=== PATIENT | female | born 1975 | race Caucasian/White ===

== ENCOUNTER 2023-04-05 07:41 | Outpatient (OUT) | payer BC, SELFPAY ==
[2023-04-05 08:20] LABS: Basophils Percent Auto 0.4 % (0.2-2.0); Eosinophils Absolute Auto 0.1 10^3/uL (0.0-0.7); Eosinophils Percent Auto 2.3 % (0.9-7.0); Hematocrit 39.6 % (36.0-48.0); Hemoglobin 13.5 g/dL (12.0-16.0); Immature Granulocytes Abs Auto 0.01 10^3/uL (0.00-0.03); Immature Granulocytes Pct Auto 0.2 % (0.0-0.5); Lymphocytes Absolute Auto 1.7 10^3/uL (1.2-3.8); Lymphocytes Percent Auto 32.2 % (20.5-60.0); Mean Corpuscular HGB Conc 34.1 g/dL (29.9-35.2); Mean Corpuscular Hemoglobin 29.5 pg (26.7-34.0); Mean Corpuscular Volume 86.7 fL (81.0-99.0); Monocytes Absolute Auto 0.5 10^3/uL (0.3-0.8); Monocytes Percent Auto 8.9 % (1.7-12.0); Neutrophils Absolute Auto 2.9 10^3/uL (1.4-6.5); Platelet Count 228 10^3/uL (150-450); Red Blood Count 4.57 10^6/uL (4.20-5.40); Red Cell Distribution Width 13.3 % (11.0-15.0); White Blood Count 5.2 10^3/uL (4.0-11.0)
[2023-04-05 09:34] LABS: Alanine Aminotransferase 53 U/L (14-59); Albumin Globulin Ratio 1.1; Albumin Level 3.8 g/dL (3.4-5.0); Alkaline Phosphatase 112 U/L (46-116); Anion Gap 8.3; Aspartate Amino Transferase 28 U/L (15-37); BUN Creatinine Ratio 31.7; Bilirubin Direct 0.2 mg/dL (0.0-0.2); Bilirubin Total 1.3 mg/dL (0.2-1.0); Carbon Dioxide 30.9 mmol/L (21.0-32.0); Chloride 100 mmol/L (98-107); Chol HDL Ratio 3.6; Cholesterol 155 mg/dL (<=200); Estimated GFR (African America >60 (>=60); Estimated GFR (Non-African Ame >60 (>=60); Globulin 3.5 g/dL; Glucose 104 mg/dL (74-106); HDL Cholesterol 43 mg/dL (40-60); LDL Cholesterol Calculated 83.4 mg/dL; Potassium 3.2 mmol/L (3.5-5.1); Sodium 136 mmol/L (136-145); Total Protein 7.3 g/dL (6.4-8.2); Triglycerides 143 mg/dL (<=150); VLDL CHOLESTEROL 28.6 mg/dL
== END 2023-04-05 07:42 | disposition home or self-care (01) ==
LOC: LAB 07:44
PROVIDERS: PCP Family Medicine; Visit Provider Nurse Practitioner
DX: I10 Essential (primary) hypertension (principal); R60.0 Localized edema; E78.2 Mixed hyperlipidemia
CPT/HCPCS: 36415; 80048; 80061; 80076; 85025

== ENCOUNTER 2023-07-24 09:35 | Outpatient (OUT) | payer BC, SELFPAY ==
[2023-07-24 10:12] LABS: Basophils Percent Auto 0.6 % (0.2-2.0); Eosinophils Absolute Auto 0.1 10^3/uL (0.0-0.7); Eosinophils Percent Auto 1.7 % (0.9-7.0); Hematocrit 39.2 % (36.0-48.0); Hemoglobin 12.7 g/dL (12.0-16.0); Immature Granulocytes Abs Auto 0.01 10^3/uL (0.00-0.03); Immature Granulocytes Pct Auto 0.2 % (0.0-0.5); Lymphocytes Absolute Auto 1.8 10^3/uL (1.2-3.8); Lymphocytes Percent Auto 28.5 % (20.5-60.0); Mean Corpuscular HGB Conc 32.4 g/dL (29.9-35.2); Mean Corpuscular Hemoglobin 29.6 pg (26.7-34.0); Mean Corpuscular Volume 91.4 fL (81.0-99.0); Mean Platelet Volume 9.5 fL (9.5-13.5); Monocytes Absolute Auto 0.5 10^3/uL (0.3-0.8); Monocytes Percent Auto 7.4 % (1.7-12.0); Neutrophils Absolute Auto 3.9 10^3/uL (1.4-6.5); Neutrophils Percent Auto 61.6 % (43.0-75.0); Platelet Count 269 10^3/uL (150-450); Red Blood Count 4.29 10^6/uL (4.20-5.40); Red Cell Distribution Width 14.1 % (11.0-15.0); White Blood Count 6.3 10^3/uL (4.0-11.0)
[2023-07-24 10:29] LABS: Estimated Average Glucose 123 mg/dL; Glycohemoglobin A1C 5.9 % (4.5-6.2)
[2023-07-24 11:05] LABS: Alanine Aminotransferase 68 U/L (14-59); Albumin Globulin Ratio 0.9; Albumin Level 3.4 g/dL (3.4-5.0); Alkaline Phosphatase 102 U/L (46-116); Anion Gap 11.1; Aspartate Amino Transferase 32 U/L (15-37); BUN Creatinine Ratio 32.5; Bilirubin Total 1.2 mg/dL (0.2-1.0); Calcium 9.2 mg/dL (8.5-10.1); Carbon Dioxide 29.8 mmol/L (21.0-32.0); Chloride 104 mmol/L (98-107); Chol HDL Ratio 3.5; Cholesterol 162 mg/dL (<=200); Estimated GFR (African America >60 (>=60); Estimated GFR (Non-African Ame >60 (>=60); Free T3 2.26 pg/mL (2.18-3.98); Globulin 3.6 g/dL; Glucose 101 mg/dL (74-106); HDL Cholesterol 46 mg/dL (40-60); Potassium 3.9 mmol/L (3.5-5.1); Sodium 141 mmol/L (136-145); Thyroid Stimulating Hormone 2.383 uIU/mL (0.358-3.740); Triglycerides 169 mg/dL (<=150); VLDL CHOLESTEROL 33.8 mg/dL
[2023-07-25 12:07] LABS: Insulin 21.5 uIU/mL (2.6-24.9)
== END 2023-07-24 09:36 | disposition home or self-care (01) ==
PROVIDERS: PCP Family Medicine; Visit Provider Family Medicine
DX: Z00.00 Encounter for general adult medical examination without abnormal findings (principal); E78.5 Hyperlipidemia, unspecified; R73.09 Other abnormal glucose; Z12.12 Encounter for screening for malignant neoplasm of rectum; D64.9 Anemia, unspecified; E55.9 Vitamin D deficiency, unspecified
CPT/HCPCS: 36415; 80053; 80061; 82306; 83036; 83525; 83540; 84436; 84443; 84481; 85025

== ENCOUNTER 2023-08-06 08:23 | Outpatient (OUT) | payer BC, SELFPAY ==
--- OUTSIDE RECORDS SUMMARY | 2023-08-06 08:26 | XMS_ITS | CCD ---
Author Name Unknown Address [address] [place] [address] Organization [facility] Care Team Providers Care Electrical Technician Name Role Phone SHIRLENEY ., DR LEE Admitting Unavailable HOY ., DR LEE Attending Unavailable HOY ., DR LEE Consulting Unavailable HOY ., DR LEE Primary Care Unavailable HOY ., DR LEE Primary Care Unavailable HOY ., DR LEE Admitting Unavailable HOY ., DR LEE Attending Unavailable HOY ., DR LEE Primary Care Unavailable HOY ., DR LEE Admitting Unavailable HOY ., DR LEE Attending Unavailable HOY ., DR LEE Consulting Unavailable HOY ., DR LEE Admitting Unavailable HOY ., DR LEE Attending Unavailable HOY ., DR LEE Consulting Unavailable HOY ., DR LEE Primary Care Unavailable NADERER, DR YISEL Fortune Consulting Unavailable GLO MCCOY Consulting Unavailable YAYA ., ZULMA Consulting Unavailable NAZZAL, MUNIER Referring Unavailable NAZZAL, MUNIER Attending Unavailable ALGHOTHANI, MOHAMAD Attending Unavailable ALGHOTHANI, MOHAMAD Attending Unavailable SHARON, KYLE Attending Unavailable SHARON, KYLE Attending Unavailable NAZZAL, MUNIER Attending Unavailable NAZZAL, MUNIER Referring Unavailable Allergies Allergy Classification Reported Allergen(s) Allergy Type Date of Onset Reaction(s) Facility (1 source) Allopurinol Drug Allergy 06-08-20 15 [facility] Repository (1 source) Sulfamethoxazole / Trimethoprim Drug Allergy 06-08-20 15 [facility] Repository (1 source) Sulfamethoxazole / Trimethoprim; Translations: [SULFAMETHOXAZOLE-TR IMETHOPRIM] Drug Allergy 07-29-19 [facility] Repository (1 source) TETANUS AND DIPHTHER. TOX (PF); Translations: [TETANUS AND DIPHTHER. TOX (PF)] Propensity to adverse reactions to drug (disorder) 07-29-19 [facility] Repository Problems Active Problems Problem Classification Problem Date Documented Da te Episodic/Chronic Disorders of lipid metabolism (2 sources) Mixed hyperlipidemia; Translations: [Mixed hyperlipidemia] Onset: 03-19-2023 Chronic Essential hypertension (3 sources) Essential (primary) hypertension; Translations: [ESSENTIAL PRIMARY HYPERTENSION] Onset: 06-26-2022 Chronic Other connective tissue disease (2 sources) Other specified soft tissue disorders; Translations: [Other specified soft tissue disorders] Onset: 05-04-2023 Episodic Unclassified (4 sources) CONTACT W/AND (SUSP) EXPOS COVID-19; Translations: [CONTACT W/AND (SUSP) EXPOS COVID-19] Onset: 06-26-2022 Unclassified (1 source) COUGH, UNSPECIFIED; Translations: [COUGH, UNSPECIFIED] Onset: 07-06-2022 Unclassified (2 sources) abnormal stress test Onset: 07-29-2022 Past or Other Problems Problem Classification Problem Date Documented Date Episodic/Chronic Cardiac dysrhythmias (2 sources) Palpitations; Translations: [Palpitations] Onset: 10-21-2022 Episodic Nonspecific chest pain (6 sources) Chest pain, unspecified; Translations: [Other chest pain] Onset: 07-13-2022 Episodic Other aftercare (1 source) correction (current) use of aspirin; Translations: [SALES PROMOTER CURRENT USE OF ASPIRIN] Onset: 06-26-2022 Episodic Other diseases of veins and lymphatics (2 sources) Venous insufficiency (chronic) (peripheral); Translations: [Venous insufficiency (chronic) (peripheral)] Onset: 03-19-2023 Episodic Other liver diseases (1 source) Abnormal levels of other serum enzymes; Translations: [ABNORMAL LEVELS OTHER SERUM ENZYMES] Onset: 06-26-2022 Episodic Other lower respiratory disease (1 source) Shortness of breath; Translations: [SHORTNESS OF BREATH] Onset: 06-26-2022 Episodic Other upper respiratory disease (1 source) Nasal congestion; Translations: [NASAL CONGESTION] Onset: 07-06-2022 Episodic Residual codes; unclassified (2 sources) Localized edema; Translations: [Localized edema] Onset: 03-19-2023 Episodic Unclassified (1 source) CONTACT W/AND (SUSP) EXPOS COVID-19; Translations: [CONTACT W/AND (SUSP) EXPOS COVID-19] Onset: 07-02-2022 Results Test Name Value Interpretation Reference Range Facility 29on 07-21-2023 29 Addended by: KYLE HERRERA on: 07/21/2023 10:25 AM Modules accepted: Orders Normal [facility] Office Visiton 07-21-2023 Follow-up visit [id number] Brooke Dior 1975 F Date Provider Department Center 07/21/2023 120-KYLE HERRERA [facility] Family History Problem Relation Age of Onset Heart failure Mother Coronary artery disease Mother Other Mother Other Mother Valvular heart disease Mother Coronary artery disease Mother's Sister Coronary artery disease Mother's Brother Coronary artery disease Maternal Grandfather Family Status - Relation Status Age at Mother Mother's Sister Mother's Brother Maternal Grandfather Level of Service:93763 [place] OFFICE/OUTPATIENT ESTABLISHED LOW MDM 20 MIN [facility] Clinical Supporton Clinical Support [id number] Brooke Dior 1975 Date Provider Department Center 05/04/2023 34[facility] Problem Relation Age of Onset Heart failure Mother Coronary artery disease Mother Other Mother Other Mother Valvular heart disease Mother Coronary artery disease Mother's Sister Coronary artery disease Mother's Brother Coronary artery disease Maternal Grandfather Family Status - Relation Status Age at Mother Mother's Sister Mother's Brother Maternal Grandfather [facility] Follow-Upon 05-04-2023 Follow-Up [id number] Brooke Dior 1975 Date Provider Department Center 05/04/2023 Michel-DMITRI WESTBROOK GLV [facility] Family History Problem Relation Age of Onset Heart failure Mother Coronary artery disease Mother Other Mother Other Mother Valvular heart disease Mother Coronary artery disease Mother's Sister Coronary artery disease Mother's Brother Coronary artery disease Maternal Grandfather Family Status - Relation Status Age at Mother Mother's Sister Mother's Brother Maternal Grandfather Level of Service:41982 [place] OFFICE/OUTPATIENT ESTABLISHED LOW MDM 20-29 MIN Reason for Visit and Comments: Follow-up [[id number]] [facility] 36on 04-07-2023 36 Please see bps [facility] 36 142/81, 145/85, 142/79, 139/83, 141/86, 131/85, 141/93, 140/79, 141/85, 139/96, 128/87 [facility] Orders Onlyon 04-07-2023 Orders Only [id number] Brooke Dior 1975 Provider Department Center 04/07/2023 KYLE BUSTILLOS MARLON [facility] Family History Problem Relation Age of Onset Heart failure Mother Coronary artery disease Mother Other Mother Other Mother Valvular heart disease Mother Coronary artery disease Mother's Sister Coronary artery disease Mother's Brother Coronary artery disease Maternal Grandfather Family Status - Relation Status Age at Mother Mother's Sister Mother's Brother Maternal Grandfather Normal [facility] 36on 04-05-2023 36 Lm 04/05 [facility] Office Visiton 03-23-2023 Follow-up visit [id number] Brooke Dior 1975 Provider Department Center 03/23/2023 DMITRI ENCARNACION [facility] Family History Problem Relation Age of Onset Heart failure Mother Coronary artery disease Mother Other Mother Other Mother Valvular heart disease Mother Coronary artery disease Mother's Sister Coronary artery disease Mother's Brother Coronary artery disease Maternal Grandfather Family Status - Relation Status Age at Mother Mother's Sister Mother's Brother Maternal Grandfather Level of Service:39924 [place] OFFICE/OUTPATIENT NEW LOW MDM 30-44 MINUTES Normal [facility] Office Visiton 03-19-2023 Follow-up visit [id number] Brooke Dior 1975 Provider Department Center 03/19/2023 KYLE BUSTILLOS MARLON [facility] Family History Problem Relation Age of Onset Heart failure Mother Coronary artery disease Mother Other Mother Other Mother Valvular heart disease Mother Coronary artery disease Mother's Sister Coronary artery disease Mother's Brother Coronary artery disease Maternal Grandfather Family Status - Relation Status Age at Mother Mother's Sister Mother's Brother Maternal Grandfather Level of Service:40772 [place] OFFICE/OUTPATIENT ESTABLISHED MOD MDM 30-39 MIN Normal [facility] Office Visiton 10-21-2022 Follow-up visit [id number] Brooke Dior 1975 Date Provider Department Center 10/21/2022 384ViancaRACHELLE GARAY Family History Problem Relation Age of Onset Heart failure Mother Coronary artery disease Mother Other Mother Other Mother Valvular heart disease Mother Coronary artery disease Mother's Sister Coronary artery disease Mother's Brother Coronary artery disease Maternal Grandfather Family Status - Relation Status Age at Mother Mother's Sister Mother's Brother Maternal Grandfather Level of Service:26559 [place] OFFICE/OUTPATIENT ESTABLISHED LOW MDM 20-29 MIN Reason for Visit and Comments: Follow-up [[id number]] - Go over test results Normal [facility] Office Visiton 07-29-2022 Follow-up visit [id number] Brooke Dior 1975 Date Provider Department Center 07/29/2022 3848-RACHELLE GARAY Family History Problem Relation Age of Onset Heart failure Mother Coronary artery disease Mother Other Mother Other Mother Valvular heart disease Mother Coronary artery disease Mother's Sister Coronary artery disease Mother's Brother Coronary artery disease Maternal Grandfather Family Status - Relation Status Age at Mother Mother's Sister Mother's Brother Maternal Grandfather Level of Service:75329 [place] OFFICE/OUTPATIENT NEW MODERATE MDM 45-59 MINUTES Reason for Visit and Comments: abnormal stress test [Other] Normal [facility] NM STRESS/REST MULTIon 07-09 NM STRESS/REST MULTI Patient: DIORBROOKE GARDUNO. Exam Date: 07/09/2022 : 1975 Gender:F Ordering : DR JESUS SMITH . Admission #: [id number] Family : Order #: [id number] CLICK HERE TO VIEW EXAM RADIOLOGY REPORT PROCEDURE: RADIONUCLIDE IMAGING STRESS/REST MULTI COMPARISON: None. INDICATIONS: Chest pain TECHNIQUE: Exam Description: Stress/Rest two day protocol gated SPECT Rest Imagin.8 mCi Tc-99m Cardiolite IV on 07/09/2022 Stress Imaging 25.6 mCi Tc-99m Cardiolite IV on 07/13/2022 Exercise Protocol: Shiv Heart Rate (bpm): Rest: 65 Max: 148 PMHR: 85 Blood Pressure: Rest: 128/92 Max: 194/98 Exercise Time: Minutes: 4 Seconds: 30 Stage Reached: Stage: 2 Mets 6.9 Symptoms: Rest and peak stress ECG findings were abnormal and the exercise portion of the study was abnormal per attending physician Dr. Jeong due toEKG changes, inferior lead downsloping and T-wave inversions in V5-6. For more details please see separate cardiac stress test report. FINDINGS: QUALITY OF STUDY: Excellent. PERFUSION DEFECT: None. LOCATION: N/A SIZE: N/A. SEVERITY: N/A. TYPE: N/A. WALL MOTION: Normal. LV SIZE: Normal. 83 mL. TID / TCD: None; 0.8 LVEF: Normal. Calculated EF 70%. SUMMARY: Myocardial perfusion imaging study is NORMAL. CONCLUSION: 1. Normal nuclear medicine myocardial perfusion scan. Dictated by: Sam Huang M.D. on 07/13/2022 at 15:41 Approved by: Sam Huang M.D. on 07/13/2022 at 15:43 Normal [facility] Covid-19 PCR (CVDTB)on SARS-CoV-2 (COVID-19) RNA BETZY+probe Ql (Unsp spec) Not detected Normal NOT DETECTED [facility] Comment on above: Result Comment: This test is not yet approved or cleared by the [place] FDA. When there are no FDA-approved or cleared tests available, and other criteria are met, FDA can make tests available under an emergency access mechanism called an Emergency Use Authorization (EUA). The EUA for this test is supported by the [place] of Health and Human Service's (HHS's) declaration that circumstances exist to justify the emergency use of in vitro diagnostics for the detection and/or diagnosis of the virus that causes COVID-19. This EUA will remain in effect (meaning this test can be used) for the duration of the COVID-19 declaration justifying emergency of IVDs, unless it is terminated or revoked by FDA (after which the test may no longer be used). When diagnostic testing is negative, the possibility of a false negative should be considered in the context of a patient's recent exposures and the presence of clinical signs and symptoms consistent with SARS-CoV-2. Performed By: #### C [facility] #### [facility] [address] [place] [address] Dr. Terrance Hernandez [facility] Normal [facility] Comment on above: Result Comment: Nega tive for Flu B protein antigen. Infection due to Flu B cannot be ruled out. Flu B antigen in the sample may be below the detection limit of the test. Performed By: #### B GRANITE SANDBLASTER APPRENTICE, CMP, HSTROPN #### [facility] [address] [place] [address] Dr. Terrance Hernandez INFLUENZA A AG Positive Abnormal NEGATIVE SEE COMMENT [facility] Comment on above: Performed By: #### B GRANITE SANDBLASTER APPRENTICE, CMP, HSTROPN #### [facility] [address] [place] [address] Dr. Terrance Hernandez INFLUENZA B AG Negative Normal NEGATIVE SEE COMMENT [facility] Comment on above: Performed By: #### B GRANITE SANDBLASTER APPRENTICE, CMP, HSTROPN #### [facility] [address] [place] [address] Dr. Terrance Hernandez INFLUPOS SEE BELOW Normal [facility] Comment on above: Result Comment: NOTE : Live attenuated influenzae vaccine viruses can cause a positive result for a rapid influenza diagnostic test if administered up to 7 days prior to rapid testing. Performed By: #### B GRANITE SANDBLASTER APPRENTICE, CMP, HSTROPN #### [facility] [address] [place] [address] Dr. Terrance Hernandez INTERNAL CONTROLS Within Normal Limits Normal Wi thin Normal Limits [facility] Comment on above: Performed By: #### B GRANITE SANDBLASTER APPRENTICE, CMP, HSTROPN #### [facility] [address] [place] [address] Dr. Terrance Hernandez CBC AUTO DIFFon 06-19-2022 BASO # 0.1 103/ul Normal 0.0-0.[address] [facility] Comment on above: Performed By: #### C BC #### [facility] [address] [place] [address] Dr. Terrance Hernandez Basophils/100 WBC (Bld) 0.8 % Normal 0.2-2.[address] [facility] Comment on above: Performed By: #### C BC #### [facility] [address] [place] [address] Dr. Terrance Hernandez EO # 0.1 103/ul Normal 0.0-0.7 [facility] Comment on above: Performed By: #### C BC #### [facility] [address] [place] [address] Dr. Terrance Hernandez Eosinophils/100 WBC (Bld) 1.4 % Normal 0.9-7.[address] [facility] Comment on above: Performed By: #### C BC #### [facility] [address] [place] [address] Dr. Terrance Hernandez Erythrocyte distribution width (RBC) [Ratio] 13.2 % Normal 11.0-15.[address] [facility] Comment on above: Performed By: #### C BC #### [facility] [address] [place] [address] Dr. Terrance Hernandez Hematocrit (Bld) [Volume fraction] 41.2 % Normal 36.0-48.[address] [facility] Comment on above: Performed By: #### C BC #### [facility] [address] [place] [address] Dr. Terrance Hernandez Hemoglobin (Bld) [Mass/Vol] 13.7 g/dL Normal 12.0-16.[address] [facility] Comment on above: Performed By: #### C BC #### [facility] [address] [place] [address] Dr. Terrance Hernandez IG # 0.01 10e3/ul Normal 0.00-0.[address] [facility] Comment on above: Performed By: #### C BC #### [facility] [address] [place] [address] Dr. Terrance Hernandez IG % 0.2 % Normal 0.0-0.5 [facility] Comment on above: Performed By: #### C BC #### [facility] [address] [place] [address] Dr. Terrance Hernandez LYMPH # 2.0 103/ul Normal 1.2-3.8 [facility] Comment on above: Performed By: #### C BC #### [facility] [address] [place] [address] Dr. Terrance Hernandez Lymphocytes/100 WBC (Bld) 29.4 % Normal 20.5-60.[address] [facility] Comment on above: Performed By: #### C BC #### [facility] [address] [place] [address] Dr. Terrance Hernandez MANUAL DIFF REQ NO Normal [facility] Comment on above: Performed By: #### C BC #### [facility] [address] [place] [address] Dr. Terrance Hernandez MCH (RBC) [Entitic mass] 29.2 pg Normal 26.7-34.[address] [facility] Comment on above: Performed By: #### C BC #### [facility] [address] [place] [address] Dr. Terrance Hernandez MCHC (RBC) [Mass/Vol] 33.3 g/dL Normal 29.9-35.[address] [facility] Comment on above: Performed By: #### C BC #### [facility] [address] [place] [address] Dr. Terrnace Hernandez MCV (RBC) [Entitic vol] 87.8 fL Normal 81.0-99.[address] [facility] Comment on above: Performed By: #### C BC #### [facility] [address] [place] [address] Dr. Terrance Hernandez MONO # 0.5 103/ul Normal 0.3-0.[address] [facility] Comment on above: Performed By: #### C BC #### [facility] [address] [place] [address] Dr. Terrance Hernandez Monocytes/100 WBC (Bld) 8.0 % Normal 1.7-12.[address] [facility] Comment on above: Performed By: #### C BC #### [facility] [address] [place] [address] Dr. Terrance Hernandez NEUT # 4.0 103/ul Normal 1.4-6.[address] [facility] Comment on above: Performed By: #### C BC #### [facility] [address] [place] [address] Dr. Terrance Hernandez Neutrophils/100 WBC (Bld) 60.2 % Normal 43.0-75.[address] [facility] Comment on above: Performed By: #### C BC #### [facility] [address] [address] [address] Terrance Hernandez Platelet mean volume (Bld) [Entitic vol] 9.3 fL Critically low 9.5-13.[address] [facility] Comment on above: Performed By: #### C BC #### [facility] [address] [address] [address] Terrance Hernandez PLT 250 103/ul Normal 150-[address] [facility] Comment on above: Performed By: #### C BC #### [facility] [address] [address] [address] Terrance Hernandez RBC 4.69 106/ul Normal 4.20-5.[address] [facility] Comment on above: Performed By: #### C BC #### [facility] [address] [place] [address] Dr. Terrance Hernandez WBC 6.6 103/ul Normal 4.0-11.[address] [facility] Comment on above: Performed By: #### C BC #### [facility] [address] [place] [address] Dr. Terrance Hernandez ECHOCARDIO M/2D COMPLETEon 1 08-19-2021 ECHOCARDIO M/2D COMPLETE Patient: BROOKE DIOR Exam Date: 06/19/2022 : 1975 Gender:F Ordering : DR YISEL OLMEDO . Admission #: [id number] Family : DR JESUS SMITH . Order #: [id number] CLICK HERE TO VIEW EXAM ECHOCARDIOGRAM REPORT PROCEDURE: CARDIO PULMONARY ECHOCARDIO M/2D COMP INDICATIONS: Hypertension, Chest pain, Elevated Troponin COMPARISON: None. DESCRIPTION: COMPLETE ECHOCARDIOGRAM Real-time transthoracic echocardiography with 2D, M-mode, spectral and color flow Doppler performed. QUALITY: Technical quality was adequate. LEFT VENTRICLE: Normal chamber size. Moderate concentric left ventricular hypertrophy. LV EF: Global left ventricular systolic function is normal. Calculated left ventricular ejection fraction is 60% DIASTOLIC: Diastolic function is indeterminate. ATRIAL SEPTUM: Aneurysmal atrial septum. LEFT ATRIUM: Normal chamber size. RIGHT ATRIUM: Mild dilatation. RIGHT VENTRICLE: Normal chamber size. Normal right ventricular systolic function. TRICUSPID VALVE: Normal mobility and thickness. No stenosis with trivial regurgitation. No evidence of pulmonary hypertension. RVSP 11mmHg MITRAL VALVE: Normal mobility and thickness. No mitral valve prolapse. No evidence of mitral valve stenosis. There is no mitral annular calcification. No mitral regurgitation. AORTIC VALVE: Normal trileaflet appearance. No visible sclerosis. Normal leaflet mobility. No evidence of aortic valve stenosis. DVI 0.54. No aortic regurgitation. AORTIC ROOT: Normal diameter and appearance. PULMONIC VALVE: Normal thickness and mobility. No stenosis. No regurgitation. PERICARDIUM: Anterior free space; trivial effusion versus fat pad. IVC: Collapses with inspirations. Normal size. CONCLUSION: Global left ventricular systolic function is normal; visually estimated ejection fraction is 55 to 60%. No wall motion abnormalities. Moderate left ventricular hypertrophy. Diastolic function is indeterminate. The right atrium is mildly dilated. The right ventricle is normal in size and systolic function. No significant valvular abnormalities. Anterior free space; trivial effusion versus fat pad. Adult Echocardiography Procedure Report Left Ventricle LVEDD (3.7 - 5.6 cm): 4.33 cm LVESD (2.2 - 4.0 cm): 2.99 cm LVIVS thickness (0.6 - 1.2 cm): 1.29 cm LVPW thickness (0.5 - 1.0 cm): 1.08 cm e': 0.13 m/s E - e': 3.63 LVOT Max Gradient: 2.42 mm[Hg], 2.14 mm[Hg] Peak Velocity (LVOT): 0.78 m/s, 0.73 m/s Mean Velocity (LVOT): 0.49 m/s, 0.46 m/s LVOT Diameter 1.89 cm Left Ventricular Ejection Fraction: 58.82 %, 58.82 % Left Atrium LA Volume Index (2D A2C): 37.52 ml, 37.52 ml Left Atrium Systolic Dimension: 3.69 cm Mitral Valve MV E to A Ratio: 0.76 Mitral Valve A-Wave Peak Velocity: 0.62 m/s Mitral Valve E-Wave Peak Velocity: 0.48 m/s Right Ventricle RV Internal Diastolic Dimension: 3.49 cm Aorta AO Root Diam: 2.36 cm Ascending Ao Diam: 2.48 cm Aortic Valve AoV Area (Peak Tyrel): 1.54 cm2, 1.59 cm2 AoV Area (VTI): 2.02 cm2, 2.08 cm2 Peak Velocity(Antegrade Flow): 1.37 m/s Peak Gradient(Antegrade Flow): 7.54 mm[Hg] Mean Velocity(Antegrade Flow): 0.89 m/s Mean Gradient(Antegrade Flow): 3.73 mm[Hg] Velocity Time Integral: 24.95 cm Tricuspid Valve Peak Velocity (Regurgitant Flow): 1.50 m/s, 1.37 m/s, 1.41 m/s Peak Velocity: 0.56 m/s Pulmonic Valve Peak Velocity: 1.19 m/s, 1.45 m/s Peak Gradient: 5.66 mm[Hg], 8.38 mm[Hg] Right Atrium Right Atrium Systolic Pressure: 30.59 ml, 30.59 ml Dictated by: Soco Bell M.D. on 06/24/2022 at 12:54 Approved by: Soco Bell M.D. on 06/24/2022 at 13:[address] [facility] PROF CHEM 8 (BAS METB)on Anion gap [Moles/Vol] 9.9 mmol/L Normal [facility] Comment on above: Performed By: #### B GRANITE SANDBLASTER APPRENTICE, CMP, HSTROPN #### [facility] [address] [place] [address] Dr. Terrance Hernandez Calcium [Mass/Vol] 8.8 mg/dL Normal 8.5-10.1 [facility] Comment on above: Performed By: #### B GRANITE SANDBLASTER APPRENTICE, CMP, HSTROPN #### [facility] [address] [place] [address] Dr. Terrance Hernandez Chloride [Moles/Vol] 105 mmol/L Normal 98-[address] [facility] Comment on above: Performed By: #### B GRANITE SANDBLASTER APPRENTICE, CMP, HSTROPN #### [facility] [address] [place] [address] Dr. Terrance Hernandez CO2 [Moles/Vol] 28.6 mmol/L Normal 21.0-32.0 [facility] Comment on above: Performed By: #### B GRANITE SANDBLASTER APPRENTICE, CMP, HSTROPN #### [facility] [address] [place] [address] Dr. Terrance Hernandez Creatinine [Mass/Vol] 0.59 mg/dL Normal 0.55-1.[address] [facility] Comment on above: Performed By: #### B GRANITE SANDBLASTER APPRENTICE, CMP, HSTROPN #### [facility] [address] [place] [address] [address] Terrance Hernandez EGFR-AF ERITREAN >60 Normal >=60 [facility] Comment on above: Performed By: #### B GRANITE SANDBLASTER APPRENTICE, CMP, HSTROPN #### [facility] [address] [place] [address] [address] Terrance Hernandez EGFR-NON AF ERITREAN >60 Normal >=[address] [facility] Comment on above: Performed By: #### B GRANITE SANDBLASTER APPRENTICE, CMP, HSTROPN #### [facility] [address] [place] [address] [address] Terrance Hernandez Glucose [Mass/Vol] 99 mg/dL Normal 74-106 [facility] Comment on above: Performed By: #### B GRANITE SANDBLASTER APPRENTICE, CMP, HSTROPN #### [facility] [address] [place] [address] [address] Terrance Hernandez Potassium [Moles/Vol] 3.5 mmol/L Normal 3.5-5.[address] [facility] Comment on above: Performed By: #### B GRANITE SANDBLASTER APPRENTICE, CMP, HSTROPN #### [facility] [address] [place] [address] [address] Terrance Hernandez Sodium [Moles/Vol] 140 mmol/L Normal 136-145 [facility] Comment on above: Performed By: #### B GRANITE SANDBLASTER APPRENTICE, CMP, HSTROPN #### [facility] [address] [place] [address] [address] Terrance Hernandez Urea nitrogen [Mass/Vol] 13.0 mg/dL Normal 7.0-18.[address] [facility] Comment on above: Performed By: #### B GRANITE SANDBLASTER APPRENTICE, CMP, HSTROPN #### [facility] [address] [place] [address] [address] Terrance Hernandez Urea nitrogen/Creatinine [Mass ratio] 22.0 mg/mg Normal [facility] Comment on above: Performed By: #### B GRANITE SANDBLASTER APPRENTICE, CMP, HSTROPN #### [facility] [address] [place] [address] Dr. Terrance Hernandez TROPONIN, HIGH SENSITIVITYon 06-19-2022 HSTROP 104.8 pg/mL Critically high 4.0-51.3 [facility] Comment on above: Result Comment: CUT- OFF POINTS HAVE BEEN ESTABLISHED BASED ON THE FOURTH UNIVERSAL DEFINITIONS OF MYOCARDIAL INFARCTION. THE UPPER REFERENCE LIMIT (URL) OF TROPONIN, DEFINED THE 99TH PERCENTILE OF cTnI DISTRIBUTION IN A REFERENCE POPULATION, HAS BEEN CONFIRMED THE DECISION THRESHOLD FOR [place] DIAGNOSIS. Performed By: #### B GRANITE SANDBLASTER APPRENTICE, CMP, HSTROPN #### [facility] [address] [place] [address] Dr. Terrance Hernandez BNPon 06-18-2022 Natriuretic peptide B (Bld) [Mass/Vol] 59.0 pg/mL Normal <=450.[address] [facility] Comment on above: Performed By: #### B GRANITE SANDBLASTER APPRENTICE, CMP, HSTROPN #### [facility] [address] [place] [address] Dr. Terrance Hernandez CBC AUTO DIFFon 06-18-2022 BASO # 0.0 103/ul Normal 0.0-0.[address] [facility] Comment on above: Performed By: #### C BC #### [facility] [address] [place] [address] Dr. Terrance Hernandez Basophils/100 WBC (Bld) 0.5 % Normal 0.2-2.0 [facility] Comment on above: Performed By: #### C BC #### [facility] [address] [place] [address] Dr. Terrance Hernandez EO # 0.1 103/ul Normal 0.0-0.7 [facility] Comment on above: Performed By: #### C BC #### [facility] [address] [place] [address] Dr. Terrance Hernandez Eosinophils/100 WBC (Bld) 1.3 % Normal 0.9-7.0 [facility] Comment on above: Performed By: #### C BC #### [facility] [address] [place] [address] Dr. Terrance Hernandez Erythrocyte distribution width (RBC) [Ratio] 13.2 % Normal 11.0-15.[address] [facility] Comment on above: Performed By: #### C BC #### [facility] [address] [place] [address] Dr. Terrance Hernandez Hematocrit (Bld) [Volume fraction] 40.7 % Normal 36.0-48.[address] [facility] Comment on above: Performed By: #### C BC #### [facility] [address] [place] [address] Dr. Terrance Hernandez Hemoglobin (Bld) [Mass/Vol] 13.6 g/dL Normal 12.0-16.[address] [facility] Comment on above: Performed By: #### C BC #### [facility] [address] [place] [address] Dr. Terrance Hernandez IG # 0.01 10e3/ul Normal 0.00-0.[address] [facility] Comment on above: Performed By: #### C BC #### [facility] [address] [place] [address] Dr. Terrance Hernandez IG % 0.2 % Normal 0.0-0.[address] [facility] Comment on above: Performed By: #### C BC #### [facility] [address] [place] [address] Dr. Terrance Hernandez LYMPH # 1.7 103/ul Normal 1.2-3.8 [facility] Comment on above: Performed By: #### C BC #### [facility] [address] [place] [address] Dr. Terrance Hernandez Lymphocytes/100 WBC (Bld) 25.8 % Normal 20.5-60.[address] [facility] Comment on above: Performed By: #### C BC #### [facility] [address] [place] [address] Dr. Terrance Hernandez MANUAL DIFF REQ NO Normal [facility] Comment on above: Performed By: #### C BC #### [facility] [address] [place] [address] Dr. Terrance Hernandez MCH (RBC) [Entitic mass] 29.2 pg Normal 26.7-34.0 [facility] Comment on above: Performed By: #### C BC #### [facility] [address] [place] [address] [address] Terrance Hernandez MCHC (RBC) [Mass/Vol] 33.4 g/dL Normal 29.9-35.2 [facility] Comment on above: Performed By: #### C BC #### [facility] [address] [place] [address] [address] Terrance Hernandez MCV (RBC) [Entitic vol] 87.5 fL Normal 81.0-99.0 [facility] Comment on above: Performed By: #### C BC #### [facility] [address] [place] [address] Dr. Terrance Hernandez MONO # 0.6 103/ul Normal 0.3-0.8 [facility] Comment on above: Performed By: #### C BC #### [facility] [address] [place] [address] Dr. Terrance Hernandez Monocytes/100 WBC (Bld) 8.8 % Normal 1.7-12.0 [facility] Comment on above: Performed By: #### C BC #### [facility] [address] [place] [address] Dr. Terrance Hernandez NEUT # 4.1 103/ul Normal 1.4-6.5 [facility] Comment on above: Performed By: #### C BC #### [facility] [address] [place] [address] [address] Terrance Hernandez Neutrophils/100 WBC (Bld) 63.4 % Normal 43.0-75.0 [facility] Comment on above: Performed By: #### C BC #### [facility] [address] [place] [address] [address] Terrance Hernandez Platelet mean volume (Bld) [Entitic vol] 9.3 fL Critically low 9.5-13.5 [facility] Comment on above: Performed By: #### C BC #### [facility] [address] [place] [address] [address] Terrance Hernandez PLT 255 103/ul Normal 150-450 [facility] Comment on above: Performed By: #### C BC #### [facility] [address] [place] [address] Dr. Terrance Hernandez RBC 4.65 106/ul Normal 4.20-5.[address] [facility] Comment on above: Performed By: #### C BC #### [facility] [address] [place] [address] Dr. Terrance Hernandez WBC 6.4 103/ul Normal 4.0-11.[address] [facility] Comment on above: Performed By: #### C BC #### [facility] [address] [place] [address] Dr. Terrance Hernandez [facility] SARS-CoV-2 (COVID-19) RNA BETZY+probe Ql (Unsp spec) Not detected Normal NOT DETECTED [facility] Comment on above: Result Comment: When diagnostic testing is negative, the possibility of a false negative should be considered in the context of a patient's recent exposures and the presence of clinical signs and symptoms consistent with SARS-CoV-2. This test is not yet approved or cleared by the [place] FDA. When there are no FDA-approved or cleared tests available, and other criteria are met, FDA can make tests available under an emergency access mechanism called an Emergency Use Authorization (EUA). The EUA for this test is supported by the [place] of Health and Human Service's declaration that circumstances exist to justify the emergency use of in vitro diagnostics for the detection and/or diagnosis of the virus that causes COVID-19. This EUA will remain in effect for the duration of the COVID-19 declaration justifying emergency of IVDs, unless it is terminated or revoked by the FDA (after which the test may no longer be used). Performed By: #### B GRANITE SANDBLASTER APPRENTICE, CMP, HSTROPN #### [facility] [address] [place] [address] Dr. Terrance Hernandez D-DIMERon 06-18-2022 D-DIMER 0.48 mg/L FEU Normal <=0.59 [facility] Comment on above: Performed By: #### B GRANITE SANDBLASTER APPRENTICE, CMP, HSTROPN #### [facility] [address] [place] [address] [address] Terrance Hernandez D-DIMER COMMENTS SEE BELOW Normal [facility] Comment on above: Result Comment: Incr eases in D-Dimer concentration observed with thromboembolic events can be variable due to localization, size, and age of the thrombus. Therefore, a thromboembolic event cannot be diagnosed with certainty on the basis of the reference range. D-Dimers may also be elevated for a variety of disorders including: advanced age, , coronary disease, cancer, liver disease, infection, inflammation, hematoma, DIC, trauma, post-surgery, diabetes, thrombolytic or anticoagulant therapy, stress, and generalized hospitalization. Performed By: #### B GRANITE SANDBLASTER APPRENTICE, CMP, HSTROPN #### [facility] [address] [place] [address] Dr. Terrance Hernandez DRUG SCREEN RAPID (URINE)on 06-18-2022 AMP Negative Normal NEGATIVE [facility] Comment on above: Performed By: #### B GRANITE SANDBLASTER APPRENTICE, CMP, HSTROPN #### [facility] [address] [place] [address] Dr. Terrance Hernandez BAR Negative Normal NEGATIVE [facility] Comment on above: Performed By: #### B GRANITE SANDBLASTER APPRENTICE, CMP, HSTROPN #### [facility] [address] [place] [address] Dr. Terrance Hernandez BUP Negative Normal NEGATIVE [facility] Comment on above: Performed By: #### B GRANITE SANDBLASTER APPRENTICE, CMP, HSTROPN #### [facility] [address] [place] [address] Dr. Terrance Hernandez BZO Negative Normal NEGATIVE [facility] Comment on above: Performed By: #### B GRANITE SANDBLASTER APPRENTICE, CMP, HSTROPN #### [facility] [address] [place] [address] Dr. Terrance Hernandez MARGOTH Negative Normal NEGATIVE [facility] Comment on above: Performed By: #### B GRANITE SANDBLASTER APPRENTICE, CMP, HSTROPN #### [facility] [address] [place] [address] Dr. Terrance Hernandez CUT-OFFS SEE BELOW Normal [facility] Comment on above: Result Comment: AMP (Amphetamine): 500ng/mL, BAR (Barbituates): 200 ng/mL, BZO (Benzodiazepines): 150 ng/mL, BUP (Buprenorphine): 10 ng/mL, MARGOTH (Cocaine): 150 ng/mL, mAMP (Methamphetamine): 500 ng/mL, MTD (Methadone): 200 ng/mL, OPI (Opiates): 100 ng/mL, OXY (Oxycodone): 100 ng/mL, PCP (Phencyclidine): 25 ng/mL, PPX (Propoxyphene): 300 ng/mL, THC (Cannabinoids): 50 ng/mL, TCA (Trycyclic Antidepressants): 300 ng/mL Performed By: #### B GRANITE SANDBLASTER APPRENTICE, CMP, HSTROPN #### [facility] [address] [place] [address] Dr. Terrance Hernandez DRUG CUT HEADER DRUG CLASS TEST SYSTEM CUT-OFF CONCENTRATIONS ARE FOLLOWS: Normal [facility] Comment on above: Performed By: #### B GRANITE SANDBLASTER APPRENTICE, CMP, HSTROPN #### [facility] [address] [place] [address] Dr. Terrance Hernandez mAMP Negative Normal NEGATIVE [facility] Comment on above: Performed By: #### B GRANITE SANDBLASTER APPRENTICE, CMP, HSTROPN #### [facility] [address] [place] [address] Dr. Terrance Hernandez MTD Negative Normal NEGATIVE [facility] Comment on above: Performed By: #### B GRANITE SANDBLASTER APPRENTICE, CMP, HSTROPN #### [facility] [address] [place] [address] Dr. Terrance Hernandez OPI Negative Normal NEGATIVE [facility] Comment on above: Performed By: #### B GRANITE SANDBLASTER APPRENTICE, CMP, HSTROPN #### [facility] [address] [place] [address] Dr. Terrance Hernandez OXY Negative Normal NEGATIVE [facility] Comment on above: Performed By: #### B GRANITE SANDBLASTER APPRENTICE, CMP, HSTROPN #### [facility] [address] [place] [address] Dr. Terrance Hernandez PCP Negative Normal NEGATIVE [facility] Comment on above: Performed By: #### B GRANITE SANDBLASTER APPRENTICE, CMP, HSTROPN #### [facility] [address] [place] [address] [address] Terrance Hernandez PPX Negative Normal NEGATIVE [facility] Comment on above: Performed By: #### B GRANITE SANDBLASTER APPRENTICE, CMP, HSTROPN #### [facility] [address] [place] [address] [address] Terrance Hernandez TCA Negative Normal NEGATIVE [facility] Comment on above: Performed By: #### B GRANITE SANDBLASTER APPRENTICE, CMP, HSTROPN #### [facility] [address] [place] [address] [address] Terrance Hernandez THC Negative Normal NEGATIVE [facility] Comment on above: Performed By: #### B GRANITE SANDBLASTER APPRENTICE, CMP, HSTROPN #### [facility] [address] [place] [address] [address] Terrance Hernandez PROF 14(COMP METB)on 022 Albumin [Mass/Vol] 3.6 g/dL Normal 3.4-5.0 [facility] Comment on above: Performed By: #### B GRANITE SANDBLASTER APPRENTICE, CMP, HSTROPN #### [facility] [address] [place] [address] [address] Terrance Hernandez Albumin/Globulin [Mass ratio] 1.1 {ratio} Normal [facility] Comment on above: Performed By: #### B GRANITE SANDBLASTER APPRENTICE, CMP, HSTROPN #### [facility] [address] [place] [address] [address] Terrance Hernandez ALP [Catalytic activity/Vol] 89 U/L Normal 46-116 [facility] Comment on above: Performed By: #### B GRANITE SANDBLASTER APPRENTICE, CMP, HSTROPN #### [facility] [address] [place] [address] [address] Terrance Hernandez ALT [Catalytic activity/Vol] 44 U/L Normal 14-[address] [facility] Comment on above: Performed By: #### B GRANITE SANDBLASTER APPRENTICE, CMP, HSTROPN #### [facility] [address] [place] [address] [address] Terrance Hernandez Anion gap [Moles/Vol] 8.5 mmol/L Normal [facility] Comment on above: Performed By: #### B GRANITE SANDBLASTER APPRENTICE, CMP, HSTROPN #### [facility] [address] [place] [address] [address] Terrance Hernandez AST [Catalytic activity/Vol] 21 U/L Normal 15-37 [facility] Comment on above: Performed By: #### B GRANITE SANDBLASTER APPRENTICE, CMP, HSTROPN #### [facility] [address] [place] [address] [address] Terrance Hernandez Bilirubin [Mass/Vol] 1.0 mg/dL Normal 0.2-1.[address] [facility] Comment on above: Performed By: #### B GRANITE SANDBLASTER APPRENTICE, CMP, HSTROPN #### [facility] [address] [place] [address] Dr. Terrance Hernandez Calcium [Mass/Vol] 8.7 mg/dL Normal 8.5-10.1 [facility] Comment on above: Performed By: #### B GRANITE SANDBLASTER APPRENTICE, CMP, HSTROPN #### [facility] [address] [place] [address] [address] Terrance Hernandez Chloride [Moles/Vol] 106 mmol/L Normal 98-107 [facility] Comment on above: Performed By: #### B GRANITE SANDBLASTER APPRENTICE, CMP, HSTROPN #### [facility] [address] [place] [address] Dr. Terrance Hernandez CO2 [Moles/Vol] 29.0 mmol/L Normal 21.0-32.0 [facility] Comment on above: Performed By: #### B GRANITE SANDBLASTER APPRENTICE, CMP, HSTROPN #### [facility] [address] [place] [address] Dr. Terrance Hernandez Creatinine [Mass/Vol] 0.63 mg/dL Normal 0.55-1.02 [facility] Comment on above: Performed By: #### B GRANITE SANDBLASTER APPRENTICE, CMP, HSTROPN #### [facility] [address] [place] [address] Dr. Terrance Hernandez EGFR-AF ERITREAN >60 Normal >=60 [facility] Comment on above: Performed By: #### B GRANITE SANDBLASTER APPRENTICE, CMP, HSTROPN #### [facility] [address] [place] [address] [address] Terrance Hernandez EGFR-NON AF ERITREAN >60 Normal >=60 [facility] Comment on above: Performed By: #### B GRANITE SANDBLASTER APPRENTICE, CMP, HSTROPN #### [facility] [address] [place] [address] [address] Terrance Hernandez Globulin (S) [Mass/Vol] 3.4 g/dL Normal [facility] Comment on above: Performed By: #### B GRANITE SANDBLASTER APPRENTICE, CMP, HSTROPN #### [facility] [address] [place] [address] [address] Terrance Hernandez Glucose [Mass/Vol] 102 mg/dL Normal 74-106 [facility] Comment on above: Performed By: #### B GRANITE SANDBLASTER APPRENTICE, CMP, HSTROPN #### [facility] [address] [place] [address] Dr. Terrance Hernandez Potassium [Moles/Vol] 3.5 mmol/L Normal 3.5-5.1 [facility] Comment on above: Performed By: #### B GRANITE SANDBLASTER APPRENTICE, CMP, HSTROPN #### [facility] [address] [place] [address] [address] Terrance Hernandez Protein [Mass/Vol] 7.0 g/dL Normal 6.4-8.2 [facility] Comment on above: Performed By: #### B GRANITE SANDBLASTER APPRENTICE, CMP, HSTROPN #### [facility] [address] [address] [address] Terrance Hernandez Sodium [Moles/Vol] 140 mmol/L Normal 136-145 [facility] Comment on above: Performed By: #### B GRANITE SANDBLASTER APPRENTICE, CMP, HSTROPN #### [facility] [address] [address] [address] Terrance Hernandez Urea nitrogen [Mass/Vol] 11.0 mg/dL Normal 7.0-18.[address] [facility] Comment on above: Performed By: #### B GRANITE SANDBLASTER APPRENTICE, CMP, HSTROPN #### [facility] [address] [address] [address] Terrance Hernandez Urea nitrogen/Creatinine [Mass ratio] 17.5 mg/mg Normal [facility] Comment on above: Performed By: #### B GRANITE SANDBLASTER APPRENTICE, CMP, HSTROPN #### [facility] [address] [address] [address] Terrance Hernandez TROPONIN, HIGH SENSITIVITYon 06-18-2022 HSTROP 112.7 pg/mL Critically high 4.0-51.3 [facility] Comment on above: Result Comment: CUT- OFF POINTS HAVE BEEN ESTABLISHED BASED ON THE FOURTH UNIVERSAL DEFINITIONS OF MYOCARDIAL INFARCTION. THE UPPER REFERENCE LIMIT (URL) OF TROPONIN, DEFINED THE 99TH PERCENTILE OF cTnI DISTRIBUTION IN A REFERENCE POPULATION, HAS BEEN CONFIRMED THE DECISION THRESHOLD FOR [place] DIAGNOSIS. Performed By: #### H STROPN #### [facility] [address] [place] [address] Dr. Terrance Hernandez HSTROP 111.6 pg/mL Critically high 4.0-51.3 [facility] Comment on above: Result Comment: CUT- OFF POINTS HAVE BEEN ESTABLISHED BASED ON THE FOURTH UNIVERSAL DEFINITIONS OF MYOCARDIAL INFARCTION. THE UPPER REFERENCE LIMIT (URL) OF TROPONIN, DEFINED THE 99TH PERCENTILE OF cTnI DISTRIBUTION IN A REFERENCE POPULATION, HAS BEEN CONFIRMED THE DECISION THRESHOLD FOR [place] DIAGNOSIS. Performed By: #### H STROPN #### [facility] [address] [place] [address] Dr. Terrance Hernandez HSTROP 110.0 pg/mL Critically high 4.0-51.3 [facility] Comment on above: Result Comment: CUT- OFF POINTS HAVE BEEN ESTABLISHED BASED ON THE FOURTH UNIVERSAL DEFINITIONS OF MYOCARDIAL INFARCTION. THE UPPER REFERENCE LIMIT (URL) OF TROPONIN, DEFINED THE 99TH PERCENTILE OF cTnI DISTRIBUTION IN A REFERENCE POPULATION, HAS BEEN CONFIRMED THE DECISION THRESHOLD FOR [place] DIAGNOSIS. Performed By: #### B GRANITE SANDBLASTER APPRENTICE, CMP, HSTROPN #### [facility] [address] [address] [address] Terrance Hernandez HSTROP 107.0 pg/mL Critically high 4.0-51.3 [facility] Comment on above: Result Comment: CUT- OFF POINTS HAVE BEEN ESTABLISHED BASED ON THE FOURTH UNIVERSAL DEFINITIONS OF MYOCARDIAL INFARCTION. THE UPPER REFERENCE LIMIT (URL) OF TROPONIN, DEFINED THE 99TH PERCENTILE OF cTnI DISTRIBUTION IN A REFERENCE POPULATION, HAS BEEN CONFIRMED THE DECISION THRESHOLD FOR [place] DIAGNOSIS. Performed By: #### H STROPN #### [facility] [address] [place], [place] [address] Dr. Terrance Hernandez HSTROP 102.0 pg/mL Critically high 4.0-51.3 [facility] Comment on above: Result Comment: CUT- OFF POINTS HAVE BEEN ESTABLISHED BASED ON THE FOURTH UNIVERSAL DEFINITIONS OF MYOCARDIAL INFARCTION. THE UPPER REFERENCE LIMIT (URL) OF TROPONIN, DEFINED THE 99TH PERCENTILE OF cTnI DISTRIBUTION IN A REFERENCE POPULATION, HAS BEEN CONFIRMED THE DECISION THRESHOLD FOR [place] DIAGNOSIS. Performed By: #### B GRANITE SANDBLASTER APPRENTICE, CMP, HSTROPN #### [facility] [address] [place], [place] [address] Dr. Terrance Hernandez TSHon 06-18-2022 TSH 1.399 uIU/mL Normal 0.358-3.740 [facility] Comment on above: Performed By: #### T SH #### [facility] [address] [place], [place] [address] Dr. Terrance Hernandez XR CHEST 2 Von 06-18-2022 XR CHEST 2 V EXAM: XR CHEST 2 V HISTORY: . Pain . COMPARISON: None TECHNIQUE: Frontal and lateral chest. FINDINGS: Heart is upper limits of normal in size. Vascularity is unremarkable. Lungs are free of focal infiltrates. Calcified granuloma are noted in both lung shoemaker. Rods are noted overlying the thoracic and lumbar spine with posterior fusion. Diffuse spondylosis of the spine is noted. IMPRESSION: 1. Borderline cardiac enlargement. 2. No acute heart or lung disease identified. 3. Old granulomatous disease. Electronically authenticated by: GLO MCCOY Date: 2022-06-18 10:[address] [facility] Physician Referralon 021 Physician Referral [phone] [id number] Normal [facility] Encounters Encounter Date Encounter Type Care Provider Facility Start: 07-21-2023 End: 07-21-2023 ambulatory [facility] Start: 05-04-2023 ambulatory [facility] Start: 03-23-2023 ambulatory [facility] Start: 03-19-2023 End: 03-19-2023 ambulatory KYLE HERRERA [facility] Start: 10-21-2022 End: 10-21-2022 [facility] Start: 07-29-2022 End: 07-29-2022 [facility] Start: 07-13-2022 End: 07-14-[address] JESUS SMITH . Facility:[facility] Start: 07-09-2022 End: 07-10-[address] JESUS SMITH . Facility:[facility] Start: 07-02-2022 End: 07-02-[address] JESUS SMITH . Facility:[facility] Start: 06-18-2022 End: 06-19-[address] JESUS SMITH . Facility: Payers Date Payer Category Payer Unknown [id number] 1975 Unknown [id number] 2.16.84 [id number] 1975 Unknown [id number] 2.16.84 [id number] 1975 Unknown [id number] 2.16.84 [id number] 1975 Unknown [id number] 2.16.84 [id number] 1959 Private Health Insurance [id number] Clinical Notes 07-29-2022 to 07-21-2023 Note Date & Type Note Facility 07-21-2023 Note Currently resolved [facility] 07-21-2023 Note Patient here for 4 m o follow up B/L LE edema, chest pain, and hypertension. She was started on hydrochlorothiazide at last apt in Feb 2023. Metoprolol was increased to 100mg a few weeks later. She saw Dr. Westbrook and had vascular testing in Apr. Chest pain has resolved. Review of Systems Cardiovascular: Positive for leg swelling. All other systems reviewed and are negative. [facility] 07-21-2023 Note [facility] CARDIOLOGY PROGR ESS NOTE HPI: Brooke Dior is a 48 y.o. female here for HTN s/p starting hydrochlorothiazide Patient here for 4 mo follow up B/L LE edema, chest pain, and hypertension. She was started on hydrochlorothiazide at last apt in Feb 2023. Metoprolol was increased to 100mg a few weeks later. She saw Dr. Westbrook and had vascular testing in Apr. Chest pain has resolved. Denied chest pain, SOB, orthopnea. 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 Review of Systems Cardiovascular: Positive for leg swelling. All other systems reviewed and are negative. Visit Vitals BP 126/80 (BP Location: Left arm, Patient Position: Sitting) Pulse 64 Ht 1.702 m (5' 7 ) Wt 122 kg (270 lb) SpO2 97% BMI 42.29 kg/m??? Smoking Status Never BSA 2.4 m??? Allergies Allergen Reactions Bactrim [Sulfamethoxazole-Trimethoprim] Tetanus And Diphther. Tox (Pf) Medications: Current Outpatient Medications on File Prior to Visit Medication Sig Dispense Refill aspirin 81 mg chewable tablet Chew 1 tablet (81 mg) once daily as directed. 90 tablet 3 atorvastatin (Lipitor) 40 mg tablet TAKE 1 TABLET BY MOUTH EVERY DAY IN THE MORNING 90 tablet 3 diclofenac (Voltaren) 75 mg EC tablet Take 75 mg by mouth in the morning and at bedtime. hydroCHLOROthiazide (HYDRODiuril) 25 mg tablet Take 1 tablet (25 mg) by mouth in the morning. 90 tablet 3 nitroglycerin (Nitrostat) 0.[address] 1 TABLET UNDER TONGUE EVERY 5 MINS, UP TO 3 DOSES NEEDED FOR CHEST PAIN [DISCONTINUED] metoprolol succinate XL (Toprol-XL) 50 mg 24 hr tablet Take 2 tablets (100 mg) by mouth in the morning. Do not crush or chew. 180 tablet 3 No current facility-administered medications on file prior to visit. Physical Exam: Constitutional: Appearance: Normal appearance. Without apparent distress HENT: Head: Normocephalic and atraumatic. Nose: Nose normal. Mouth/Throat: Mouth: Mucous membranes are moist. Eyes: Extraocular Movements: Extraocular movements intact. Conjunctiva/sclera: Conjunctivae normal. Neck: Vascular: No JVD. Cardiovascular: Rate and Rhythm: Normal rate and regular rhythm. Pulses: Dorsalis pedis pulses are 3 on the right side and 3on the left side. Posterior tibial pulses are 3 on the right side and 3 on the left side. Heart sounds: Normal heart sounds, S1 normal and S2 normal. Pulmonary: Effort: Pulmonary effort is normal. Breath sounds: Normal breath sounds. Abdominal: General: Bowel sounds are normal. Palpations: Abdomen is soft. Musculoskeletal: General: Normal range of motion. Cervical back: Normal range of motion. Right lower le+ edema. Left lower le+ edema. Skin: General: Skin is warm and dry. Capillary Refill: Capillary refill takes less than 2 seconds. Neurological: General: No focal deficit present. Mental Status: She is alert and oriented to person, place, and time. Psychiatric: Mood and Affect: Mood normal. Behavior: Behavior normal. Thought Content: Thought content normal. Judgment: Judgment normal. Labs: 04/05/23 CBC normal BUN 26, CR 0.82, Gfr >60- normal Liver function normal Chol 155, Trig 143, HDL 43, LDL 83.4- stable 06/19/2022 CBC normal, renal function normal, potassium normal, liver function BUN 13, creatinine 0.89 Last lab values have been reviewed CV Testin06/19/22 Echo Normal LV systolic function, EF 55 to 60%, [facility] LV[facility] 06/2022 Stress test Normal myocardial perfusion, Inferior lead downsloping noted with inverted T waves in V5 V6 Assessment/Plan: Bilateral lower extremity edema F/U with Dr Westbrook- vascular surgery Benign essential HTN Hypertension is well controlled with addition of hydrochlorothiazide Continue toprol 100 mg daily and hydrochlorothiazide. Renal function had remained stable and normal Atypical chest pain Currently resolved RTC 6 month [facility] 07-20-2023 Note Hypertension is well controlled with addition of hydrochlorothiazide Continue toprol 100 mg daily and hydrochlorothiazide. Renal function had remained stable and normal [facility] 07-20-2023 Note F/U with Dr Westbrook- vascular [facility] 05-04-2023 Note Subjective Patient ID: Brooke Dior is a 47 y.o. female who presents for follow-up after having venous reflux ultrasound completed prior due to swelling BLE. Last seen by Dr. Westbrook 03/23/23. Vitals: 05/04/23 1413 BP: 129/77 Pulse: 57 Resp: 16 SpO2: 97% Current Outpatient Medications on File Prior to Visit Medication Sig Dispense Refill aspirin 81 mg chewable tablet Chew 1 tablet (81 mg) once daily as directed. 90 tablet 3 atorvastatin (Lipitor) 40 mg tablet Take 1 tablet (40 mg) by mouth in the morning. 30 tablet 11 diclofenac (Voltaren) 75 mg EC tablet Take 75 mg by mouth in the morning and at bedtime. hydroCHLOROthiazide (HYDRODiuril) 25 mg tablet Take 1 tablet (25 mg) by mouth in the morning. 90 tablet 3 metoprolol succinate XL (Toprol-XL) 50 mg 24 hr tablet Take 2 tablets (100 mg) by mouth in the morning. Do not crush or chew. 180 tablet 3 nitroglycerin (Nitrostat) 0.[address] 1 TABLET UNDER TONGUE EVERY 5 MINS, UP TO 3 DOSES NEEDED FOR CHEST PAIN No current facility-administered medications on file prior to visit. Allergies Allergen Reactions Bactrim [Sulfamethoxazole-Trimethoprim] Tetanus And Diphther. Tox (Pf) HPI Patient presenting with a swelling especially of the left lower extremity slight discoloration on the left great toe. She denied any history of injury to the toe. The swelling mostly up to the middle of the leg including the ankle and the foot. She denied any history of DVT or any history of varicose veins. She has been using elastic stocking for about 2 years. Review of Systems Constitutional: Negative. HENT: Negative. Eyes: Negative. Respiratory: Negative. Cardiovascular: Positive for leg swelling. Gastrointestinal: Negative. Endocrine: Negative. Genitourinary: Negative. Musculoskeletal: Negative. Skin: LLE big toe redness when her foot/toes are swollen Allergic/Immunologic: Negative. Neurological: Negative. Hematological: Negative. Psychiatric/Behavioral: Negative. Objective There were no vitals taken for this visit. Physical Exam Constitutional: Appearance: She is obese. HENT: Head: Normocephalic and atraumatic. Nose: Nose normal. Eyes: Pupils: Pupils are equal, round, and reactive to light. Cardiovascular: Rate and Rhythm: Normal rate and regular rhythm. Pulses: Normal pulses. Heart sounds: No murmur heard. Pulmonary: Effort: No respiratory distress. Breath sounds: Normal breath sounds. No stridor. Abdominal: General: Abdomen is flat. There is no distension. Palpations: Abdomen is soft. There is no mass. Musculoskeletal: General: Swelling present. Cervical back: Normal range of motion. No tenderness. Right lower leg: Edema present. Left lower leg: Edema present. Skin: General: Skin is warm and dry. Neurological: General: No focal deficit present. Mental Status: She is alert and oriented to person, place, and time. Psychiatric: Mood and Affect: Mood normal. Behavior: Behavior normal. Thought Content: Thought content normal. Judgment: Judgment normal. Assessment/Plan Swelling in the lower extremity especially on the left leg. She is using elastic stocking for about 2 years. Ultrasound was done which showed reflux in the left greater saphenous vein. In addition she has reflux in the right short saphenous vein but a lot of chronic changes on the right greater saphenous vein. The plan is to obtain CTA with venous phase for possible May-Thurner syndrome. That we will decide if any intervention is needed on the pelvis first or if comes normal then we will plan a greater saphenous vein ablation. She needs to use elastic stocking 20 to 30 mmHg below the knee and remove them at night as she is advised. CTA abdomen/pelvis with venous phase for Maythurner Syndrome Compression stocking 20-30mmgh RTC 4-6 weeks for evaluation on how to proceed No diagnosis found. No orders of the defined types were placed in this encounter. No results found for this or any previous visit (from the past 36 hour(s)). No follow-ups on file. [facility] 04-07-2023 Note Staff reported pt's b/p at the review was now after initiation of hydrochlorothiazide; 142/81, 145/85, 142/79, 139/83, 141/86, 131/85, 141/93, 140/79, 141/85, 139/96, 128/87 Remains elevated and uncontrolled, will increase toprol to 100 mg daily and continue to monitor b/p at home with goal 130/80 or less I do not see repeat BMP after starting hydrochlorothiazide. Staff to call and inform pt of increased toprol dose and remind her about labs to be completed to assess renal function and electrolyte Kyle Herrera [employer] Division of Cardiology, [facility]- [phone] Pager- [phone] Email- [email or web address] 03-23-2023 Note Subjective Patient ID: Brooke Dior is a 47 y.o. female who presents for new patient consult from Kyle Herrera [employer] at [facility] for BLE edema. HPI Patient presenting with a swelling of both lower extremities that has been present for a while. She denied any history of trauma. No history of DVT. Denied any history of varicose veins. Denied any knowledge of having a renal failure, liver failure, or thyroid disease. She is using elastic stocking but the stocking causing pain for her at the site where the end. Review of Systems Constitutional: Negative. HENT: Negative. Eyes: Negative. Respiratory: Negative. Cardiovascular: Positive for leg swelling. Gastrointestinal: Negative. Endocrine: Negative. Genitourinary: Negative. Musculoskeletal: Negative. Skin: Negative. Allergic/Immunologic: Negative. Neurological: Negative. Hematological: Negative. Psychiatric/Behavioral: Negative. Objective There were no vitals taken for this visit. Physical Exam Constitutional: Appearance: Normal appearance. She is normal weight. HENT: Head: Normocephalic and atraumatic. Nose: Nose normal. Eyes: Pupils: Pupils are equal, round, and reactive to light. Neck: Vascular: No carotid bruit. Cardiovascular: Rate and Rhythm: Normal rate and regular rhythm. Pulses: Normal pulses. Heart sounds: Normal heart sounds. No murmur heard. Pulmonary: Effort: Pulmonary effort is normal. No respiratory distress. Breath sounds: Normal breath sounds. No stridor. No wheezing or rhonchi. Abdominal: General: Abdomen is flat. There is no distension. Palpations: Abdomen is soft. There is no mass. Tenderness: There is no abdominal tenderness. Hernia: No hernia is present. Musculoskeletal: General: Normal range of motion. Cervical back: Normal range of motion and neck supple. No rigidity or tenderness. Right lower leg: Edema present. Left lower leg: Edema present. Skin: General: Skin is warm. Capillary Refill: Capillary refill takes less than 2 seconds. Neurological: General: No focal deficit present. Mental Status: She is alert and oriented to person, place, and time. Cranial Nerves: No cranial nerve deficit. Psychiatric: Mood and Affect: Mood normal. Behavior: Behavior normal. Thought Content: Thought content normal. Judgment: Judgment normal. Assessment/Plan Edema of both legs No history of trauma Venous reflux bilateral Follow up with Dr. Westbrook, same day Continue compression No diagnosis found. No orders of the defined types were placed in this encounter. No results found for this or any previous visit (from the past 36 hour(s)). No follow-ups on file. [facility] 03-19-2023 Note Hypertension is unco ntrolled Continue toprol and start hydrochlorothiazide 25 mg daily Continue to monitor blood pressure at home discussed with patient goal is 130/80 or less and staff to call her in 1 to 2 weeks to review her blood pressure log Discussed with her about side effects and allergic reactions and when to call office and she voiced understanding [facility] 03-19-2023 Note No [facility] Recommended to apply Eucerin cream daily and compression socks during the day 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, Legs are dependent [facility] 03-19-2023 Note Patient states swell ing of legs really started after of her daughter Compression socks she tries to wear daily but sometimes they just really hurt and are almost too small She admits dry itchy skin at times and states in the past she is actually had weeping and drainage of her leg Prescription for bilateral knee-high compression hose 20 to 30 mmHg Into patient Referral to vascular surgery for further evaluation and management Determine whether its venous insufficiency versus lymphedema [facility] 03-19-2023 Note [facility]TP CARDIOLOGY PROGR ESS NOTE HPI: Brooke Dior is a 47 y.o. female here for Routine follow-up For hypertension, chest pain, leg swelling HPI Pleasant 47-year-old female presented to clinic for routine follow-up last seen by Dr. Garay. Denies chest pain, shortness of breath, orthopnea, palpitations. She admits she has had leg swelling left leg greater than right leg since the of her daughter. States she had some testing with her PCP but has never seen vascular surgery or vein specialist. States her job currently she is sitting at a desk and fairly inactive and legs dependent throughout most of every day. She has [id number] compression socks that most of time hurts because they are actually too small. Review of Systems Constitutional: Negative. Respiratory: Negative. Cardiovascular: Positive for leg swelling. Negative for chest pain and palpitations. Neurological: Negative. All other systems reviewed and are negative. Visit Vitals BP 140/86 (BP Location: Right arm, Patient Position: Sitting) Pulse 59 Ht 1.702 m (5' 7 ) Wt 122 kg (270 lb) SpO2 98% BMI 42.29 kg/m??? Smoking Status Never BSA 2.4 m??? Allergies Allergen Reactions Bactrim [Sulfamethoxazole-Trimethoprim] Tetanus And Diphther. Tox (Pf) Medications: Current Outpatient Medications on File Prior to Visit Medication Sig Dispense Refill aspirin 81 mg chewable tablet Chew 1 tablet (81 mg) once daily as directed. 90 tablet 3 atorvastatin (Lipitor) 40 mg tablet Take 1 tablet (40 mg) by mouth in the morning. 30 tablet 11 diclofenac (Voltaren) 75 mg EC tablet Take 75 mg by mouth in the morning and at bedtime. metoprolol succinate XL (Toprol-XL) 50 mg 24 hr tablet Take 1 tablet (50 mg) by mouth once daily as directed. Do not crush or chew. 90 tablet 3 nitroglycerin (Nitrostat) 0.[address] 1 TABLET UNDER TONGUE EVERY 5 MINS, UP TO 3 DOSES NEEDED FOR CHEST PAIN No current facility-administered medications on file prior to visit. Physical Exam: Constitutional: Appearance: Normal appearance. Without apparent distress, obese HENT: Head: Normocephalic and atraumatic. Nose: Nose normal. Mouth/Throat: Mouth: Mucous membranes are moist. Eyes: Extraocular Movements: Extraocular movements intact. Conjunctiva/sclera: Conjunctivae normal. Neck: Vascular: No JVD. Cardiovascular: Rate and Rhythm: Normal rate and regular rhythm. Pulses: Dorsalis pedis pulses are 3 on the right side and 3on the left side. Posterior tibial pulses are 3 on the right side and 3 on the left side. Heart sounds: Normal heart sounds, S1 normal and S2 normal. Pulmonary: Effort: Pulmonary effort is normal. Breath sounds: Normal breath sounds. Abdominal: General: Bowel sounds are normal. Palpations: Abdomen is soft. Musculoskeletal: General: Normal range of motion. Cervical back: Normal range of motion. Right lower leg: Non pitting edema. Left lower leg: Non pitting edema. Lt > Rt leg Skin: General: Skin is warm and dry. Xerosis of BLE, no ulcerations or erythema Capillary Refill: Capillary refill takes less than 2 seconds. Neurological: General: No focal deficit present. Mental Status: She is alert and oriented to person, place, and time. Psychiatric: Mood and Affect: Mood normal. Behavior: Behavior normal. Thought Content: Thought content normal. Judgment: Judgment normal. Labs: 06/19/2022 CBC normal, renal function normal, potassium normal, liver function BUN 13, creatinine 0.89 Last lab values have been reviewed CV Testin06/19/22 Echo Normal LV systolic function, EF 55 to 60%, [facility] LVH 06/2022 Stress test Normal myocardial perfusion, Inferior lead downsloping noted with inverted T waves in V5 V6 No echocardiogram results found for the past 12 months Assessment/Plan: Bilateral lower extremity edema Patient states swelling of legs really started after of her daughter Compression socks she tries to wear daily but sometimes they just really hurt and are almost too small She admits dry itchy skin at times and states in the past she is actually had weeping and drainage of her leg Prescription for bilateral knee-high compression hose 20 to 30 mmHg Into patient Referral to vascular surgery for further evaluation and management Determine whether its venous insufficiency versus lymphedema Stasis dermatitis of both legs Recommended to apply Eucerin cream daily and compression socks during the day 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 [facility] 03-19-2023 Note Patient here for 6 m o follow up chest pain and LE edema. Denies recurrent chest pain. Denies palpitations and lightheadedness. Does still get LE edema, some days are better than others she says. Doesn't check her BP very often at home, but says it usually isn't as high as it is in the office today. Review of Systems Cardiovascular: Positive for leg swelling. All other systems reviewed and are negative. [facility] 10-21-2022 Note Cardiology Clinic No te Chief Complaint: Follow up HPI: Brooke Dior is a 47 y.o. female with no significant past medical history who was initially referred to Cardiology clinic for abnormal stress test. Patient reportedly had a single episode of chest pain in May. At that time, she presented to the emergency department. Echocardiogram and stress test were ordered. Stress test demonstrated T wave flattening in inferior leads and T wave inversion in the lateral leads. Nuclear myocardial perfusion scan noted normal myocardial perfusion without evidence of ischemia. Echocardiogram showed a normal ejection fraction and no wall motion abnormalities. Patient presents today for follow up. She denies any cardiac complaints or concerns. No recurrent episodes of chest pain. No shortness of breath. No lower extremity edema, orthopnea, or PND. No near syncope or syncope. She wore a recent event monitor. No sustained arrythmias. Cardiology ROS: GENERAL: Denies fever, chills, night sweats, weight loss. HEENT: Denies changes in vision, photophobia, changes in hearing, epistaxis, oral bleeding. CARDIOVASCULAR: Endorses chronic lower extremity swelling. Denies chest pain, exertional dyspnea, orthopnea/PND, palpitations, lightheadedness/dizziness. RESPIRATORY: Denies SOB, coughing, wheezing GI: Denies abdominal pain, nausea/vomiting, heartburn, melena/hematochezia. RENAL: Denies dysuria, hematuria, flank pain. MSK: Denies muscle weakness/pain, arthralgias/joint pain. NEUROLOGIC: Denies LOC, weakness, numbness, headaches. SKIN: Denies abnormal rashes or bleeding. PSYCH: Denies significant anxiety, depression, sleep disturbances. Past Medical History She has a past medical history of COVID (08/2022). Surgical History She has a past surgical history that includes Cholecystectomy and Back surgery. Social History She reports that she has never smoked. She has never used smokeless tobacco. She reports that she does not currently use alcohol. She reports that she does not use drugs. Family History Family History Problem Relation Name Age of Onset Heart failure Mother Coronary artery disease Mother Other (CABG) Mother Other (cardiac arrest) Mother Valvular heart disease Mother Coronary artery disease Mother's Sister Coronary artery disease Mother's Brother Coronary artery disease Maternal Grandfather Medications Current Outpatient Medications on File Prior to Visit Medication Sig Dispense Refill atorvastatin (Lipitor) 40 mg tablet Take 1 tablet (40 mg) by mouth in the morning. 30 tablet 11 diclofenac (Voltaren) 75 mg EC tablet Take 75 mg by mouth in the morning and at bedtime. nitroglycerin (Nitrostat) 0.[address] 1 TABLET UNDER TONGUE EVERY 5 MINS, UP TO 3 DOSES NEEDED FOR CHEST PAIN No current facility-administered medications on file prior to visit. Allergies Bactrim [sulfamethoxazole-trimethoprim] and Tetanus and diphther. tox (pf) Physical Exam VITAL SIGNS: BP 148/83 (BP Location: Right arm, Patient Position: Sitting, BP Cuff Size: Large adult) Pulse 52 Ht 1.702 m (5' 7 ) Wt 122 kg (268 lb 3.2 oz) SpO2 99% BMI 42.01 kg/m??? Constitutional: Well developed, Well nourished, No acute distress, Non-toxic appearance. HENT: Normocephalic, Atraumatic, Bilateral external ears have normal appearance, Bilateral TMs clear, Oropharynx moist, No oral or pharyngeal exudates, Nose appears normal, nares are patent. Eyes: PERRLA, EOMI, Conjunctiva normal, No discharge. Neck: Normal range of motion, No tenderness, Supple, No stridor. No cervical lymphadenopathy noted. Cardiovascular: Normal heart rate, Normal rhythm, No murmurs, No rubs, No gallops. Thorax & Lungs: Normal breath sounds, No respiratory distress, No wheezing, No chest tenderness to palpation. Abdomen: Bowel sounds normal, Soft, Nontender, No masses, No pulsatile masses. Skin: Warm, Dry, No erythema, No rash. Back: No tenderness, No CVA tenderness. Extremities: Intact distal pulses, No edema, No tenderness, No cyanosis, No clubbing. Musculoskeletal: Good range of motion in all major joints with 5/5 muscle strength in all muscle groups, No tenderness to palpation or major deformities noted. Neurologic: Alert & oriented x 3, Normal motor function in all major muscle groups, Normal sensory function to all major dermatomes, No focal deficits noted. Psychiatric: Affect normal, Judgment normal, Mood normal. Impression: -Chest pain, single episode without recurrence, no perfusion defects on nuclear imaging -Chronic lower extremity edema, likely due to venous insufficiency Plan: -No recurrent episodes of chest pain. Again, reviewed options with patient and she emphasized her desire to to optimize medical management and observe for recurrence. If there is recurrence of chest pain, can consider additional testing. She is on aspirin, statin, beta ortiz -Optimize medical ma (more content not included)... [facility] 07-29-2022 Note New patient here to establish care. Ref from Dr. Smith for abnormal stress test, ordered for chest pain s/p ED visit in May 2022. Denies SOB. Says she's had LLE edema since the of her daughter 18 years ago. Says the chest pain was an isolated incident. She denies recurrent chest pain. She was not feeling well during this time when chest pain occurred. Review of Systems Cardiovascular: Positive for leg swelling. All other systems reviewed and are negative. [facility] 07-29-2022 Note Cardiology Clinic No te Chief Complaint: new patient for abnormal stress HPI: Brooke Dior is a 47 y.o. female with no significant past medical history who was referred to Cardiology clinic for abnormal stress test. Patient reportedly had a single episode of chest pain in May. At that time, she presented to the emergency department. Echocardiogram and stress test were ordered. Stress test demonstrated T wave flattening in inferior leads and T wave inversion in the lateral leads. Nuclear myocardial perfusion scan noted normal myocardial perfusion without evidence of ischemia. Echocardiogram showed a normal ejection fraction and no wall motion abnormalities. Patient denies any associated symptoms with that episode of chest pain. She denies any shortness of breath. She denies any diaphoresis. No dizziness or lightheadedness. Again, she has not had any recurrence of this chest pain since that initial episode. She is physically active and denies any limiting symptoms. No chest pain with activity. No shortness of breath with activity. She reports chronic lower extremity swelling, which she states she has had since the of her daughter many years ago. Otherwise, no cardiac complaints or concerns. Patient denies any previous history of CVA, PVD, DM, HTN, Depressed LVEF, and CAD. Cardiology ROS: GENERAL: Denies fever, chills, night sweats, weight loss. HEENT: Denies changes in vision, photophobia, changes in hearing, epistaxis, oral bleeding. CARDIOVASCULAR: Endorses chronic lower extremity swelling. Denies chest pain, exertional dyspnea, orthopnea/PND, palpitations, lightheadedness/dizziness. RESPIRATORY: Denies SOB, coughing, wheezing GI: Denies abdominal pain, nausea/vomiting, heartburn, melena/hematochezia. RENAL: Denies dysuria, hematuria, flank pain. MSK: Denies muscle weakness/pain, arthralgias/joint pain. NEUROLOGIC: Denies LOC, weakness, numbness, headaches. SKIN: Denies abnormal rashes or bleeding. PSYCH: Denies significant anxiety, depression, sleep disturbances. Past Medical History She has no past medical history on file. Surgical History She has a past surgical history that includes Cholecystectomy and Back surgery. Social History She reports that she has never smoked. She has never used smokeless tobacco. She reports that she does not currently use alcohol. No history on file for drug use. Family History Family History Problem Relation Name Age of Onset Heart failure Mother Coronary artery disease Mother Other (CABG) Mother Other (cardiac arrest) Mother Valvular heart disease Mother Coronary artery disease Mother's Sister Coronary artery disease Mother's Brother Coronary artery disease Maternal Grandfather Medications Current Outpatient Medications on File Prior to Visit Medication Sig Dispense Refill aspirin 81 mg chewable tablet CHEW AND SWALLOW 2 TABLETS BY MOUTH ONCE A DAY diclofenac (Voltaren) 75 mg EC tablet Take 75 mg by mouth in the morning and at bedtime. isosorbide mononitrate ER (Imdur) 30 mg 24 hr tablet Take 30 mg by mouth in the morning. metoprolol tartrate (Lopressor) 25 mg tablet Take 25 mg by mouth with breakfast and with evening meal. No current facility-administered medications on file prior to visit. Allergies Bactrim [sulfamethoxazole-trimethoprim] and Tetanus and diphther. tox (pf) Physical Exam VITAL SIGNS: BP 134/84 (BP Location: Left arm, Patient Position: Sitting) Pulse 74 Ht 1.702 m (5' 7 ) Wt 118 kg (260 lb) SpO2 97% BMI 40.72 kg/m??? Constitutional: Well developed, Well nourished, No acute distress, Non-toxic appearance. HENT: Normocephalic, Atraumatic, Bilateral external ears have normal appearance, Bilateral TMs clear, Oropharynx moist, No oral or pharyngeal exudates, Nose appears normal, nares are patent. Eyes: PERRLA, EOMI, Conjunctiva normal, No discharge. Neck: Normal range of motion, No tenderness, Supple, No stridor. No cervical lymphadenopathy noted. Cardiovascular: Normal heart rate, Normal rhythm, No murmurs, No rubs, No gallops. Thorax & Lungs: Normal breath sounds, No respiratory distress, No wheezing, No chest tenderness to palpation. Abdomen: Bowel sounds normal, Soft, Nontender, No masses, No pulsatile masses. Skin: Warm, Dry, No erythema, No rash. Back: No tenderness, No CVA tenderness. Extremities: Intact distal pulses, No edema, No tenderness, No cyanosis, No clubbing. Musculoskeletal: Good range of motion in all major joints with 5/5 muscle strength in all muscle groups, No tenderness to palpation or major deformities noted. Neurologic: Alert & oriented x 3, Normal motor function in all major muscle groups, Normal sensory function to all major dermatomes, No focal deficits noted. Psychiatric: Affect normal, Judgment normal, Mood normal. EKG results: No results found for this or any previous visit (from the past 4464 hour(s)). Echo results: No (more content not included)... [facility] Summary Purpose Family History No Family History Records FoundNo Family History Records FoundNo Family History Records Found Advance Directives No Advanced Directives Records FoundNo Advanced Directives Records FoundNo Advanced Directives Records Found Additional Source Comments INFORMATION SOURCE (unrecogn ized section and content) DATE CREATED AUTHOR 03/09/2021 [facility] DATE CREATED AUTHOR AUTHOR'S ORGANIZ ATION 11/27/2022 Jose De Jesus Isaac [facility] DATE CREATED AUTHOR AUTHOR'S ORGANIZ ATION 07/22/2023 [facility] FOR RECORDS PERTAINING TO PATIENTS WHO ARE OR HAVE BEEN ENROLLED IN A CHEMICAL DEPENDENCY/SUBSTANCEABUSE PROGRAM, SOME INFORMATION MAY BE OMITTED. This clinical summary was aggregated from multiple sources. Caution should be exercised in using it in the provision of clinical care. This summary normalizes information from multiple sources, and as a consequence, information in this document may materially change the coding, format and clinical context of patient data. In addition, data may be omitted in some cases. CLINICAL DECISIONS SHOULD BE BASED ON THE PRIMARY CLINICAL RECORDS. [employer] provides no warranty or guarantee of the accuracy or completeness of information in this document.
--- NOTE | 2023-08-06 08:54 | MM_ITS ---
Patient Name: STEPHANI GARCES MR#: [id number] : 1975 Exam Date: 08/06/2023 Ordering Doctor: DR Marcello Smith . RADIOLOGY REPORT PROCEDURE: MM TOMOSYNTHESIS SCREENING BI COMPARISON: None. INDICATIONS: Screening Calculator Name NCI Breast Cancer Risk Assessment Tool 5 Year Breast Cancer Risk 0.90% Lifetime Breast Cancer Risk 9.30% Personal Breast Cancer No Personal Ovarian Cancer No Treatments None Family Cancers Mother with uterine cancer at age 45; Father with lung/bone cancer at age 40. LOCATION: [facility] BREAST COMPOSITION: Heterogeneously dense,which may obscure small masses. FINDINGS: DIAGNOSTIC CATEGORY 0--INCOMPLETE: NEED ADDITIONAL IMAGING EVALUATION. The breasts are medium in size. Heterogeneous parenchymal pattern does limit diagnostic sensitivity. RIGHT BREAST: Asymmetrically small. Two focal nodules in the upper outer quadrant measuring 10 and 6 mm in size. Spot compression and ultrasound is recommended for further evaluation LEFT BREAST: Area of focal asymmetry with microcalcifications measuring 6.1 x 4.7 cm upper outer quadrant. Spot compression, spot magnification and ultrasound follow-up is recommended. RECOMMENDATIONS: ADDITIONAL MAMMOGRAPHIC VIEWS REQUIRED: LEFT BREAST - spot compression and magnification ULTRASOUND: BILATERAL BREASTS PLEASE NOTE: A NORMAL MAMMOGRAM DOES NOT EXCLUDE THE POSSIBILITY OF BREAST CANCER. A CLINICALLY SUSPICIOUS PALPABLE LUMP SHOULD BE BIOPSIED. Dictated by: Chandrakant Gee MD on 08/06/2023 at 12:06 Approved by: Chandrakant Gee MD on 08/06/2023 at 12:14
== END 2023-08-06 08:24 | disposition home or self-care (01) ==
LOC: MAMMO 08:23
PROVIDERS: PCP Family Medicine; Visit Provider Family Medicine
DX: Z12.31 Encounter for screening mammogram for malignant neoplasm of breast (principal); Z80.1 Family history of malignant neoplasm of trachea, bronchus and lung; Z80.8 Family history of malignant neoplasm of other organs or systems
CPT/HCPCS: 77063; 77067

== ENCOUNTER 2023-08-30 07:50 | Outpatient (OUT) | payer BC, SELFPAY ==
--- NOTE | 2023-08-30 07:53 | US_ITS ---
Patient Name: STEPHANI GARCES MR#: [id number] : 1975 Exam Date: 08/30/2023 Ordering Doctor: DR Marcello Smith . RADIOLOGY REPORT PROCEDURE: MM DIAGNOSTIC MAMMO BI, 08/30/2023, 07:55 US BREAST BI LIMITED, 08/30/2023, 07:48 COMPARISON: MM TOMOSYNTHESIS SCREENING BI, 08/06/2023. INDICATIONS: Abnormal Mammogram Calculator Name NCI Breast Cancer Risk Assessment Tool 5 Year Breast Cancer Risk 0.90% Lifetime Breast Cancer Risk 9.30% Personal Breast Cancer No Personal Ovarian Cancer No Treatments None Family Cancers Mother with uterine cancer at age 45; Father with lung/bone cancer at age 40. LOCATION: [facility] BREAST COMPOSITION: Heterogeneously dense,which may obscure small masses. FINDINGS: DIAGNOSTIC CATEGORY 4--SUSPICIOUS FOR MALIGNANCY. FINDING DOES NOT EXHIBIT CLASSIC FINDINGS OF BREAST CANCER: Spot compression images demonstrate 2 reniform nodules in the upper aspect of the right breast along the mid and posterior portions. Ultrasound demonstrates 2 subcentimeter normal-size normal morphology lymph nodes measuring 5.5 and 5.2 mm in size. No follow-up of these lesions is required Spot magnification of the left breast demonstrates a persistent area of focal asymmetry with underlying pleomorphic microcalcifications. Ultrasound demonstrates a area of heterogeneous hyperechogenicity with scattered calcifications at the 9 o'clock position. Mammographically guided stereotactic core biopsy of this area is recommended to exclude malignancy RECOMMENDATIONS: STEREOTACTIC BREAST BIOPSY: LEFT BREAST PLEASE NOTE: A NORMAL MAMMOGRAM DOES NOT EXCLUDE THE POSSIBILITY OF BREAST CANCER. A CLINICALLY SUSPICIOUS PALPABLE LUMP SHOULD BE BIOPSIED. Dictated by: Chandrakant Gee MD on 08/30/2023 at 09:34 Approved by: Chandrakant Gee MD on 08/30/2023 at 09:39
--- OUTSIDE RECORDS SUMMARY | 2023-08-30 07:53 | XMS_ITS | CCD ---
Author Name Unknown Address [address] [place] [address] Organization [facility] Care Team Providers Care Health Information Internship Name Role Phone SHIRLENEY ., DR LEE [...] source) Allopurinol Drug Allergy 06-08-20 15 [facility] Repository (1 source) Sulfamethoxazole / Trimethoprim Drug Allergy 06-08-20 15 [facility] Repository (1 source) Sulfamethoxazole / Trimethoprim; Translations: [SULFAMETHOXAZOLE-TR IMETHOPRIM] Drug Allergy 07-29-19 [facility] Repository (1 source) TETANUS AND DIPHTHER. TOX (PF); Translations: [TETANUS AND DIPHTHER. 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 CURRENT USE OF ASPIRIN] Onset: 06-26-2022 Episodic [...] 07/21/2023 10:25 AM Modules accepted: Orders Normal [facility] Office Visiton 07-21-2023 Follow-up visit [id number] Brooke Dior 1975 F Date Provider Department Center 07/21/2023 120-KYLE HERRERA [facility] Family History Problem Relation Age of Onset Heart failure Mother Coronary artery disease Mother Other Mother Other Mother Valvular heart disease Mother Coronary artery disease Mother's Sister Coronary artery disease Mother's Brother Coronary artery disease Maternal Grandfather Family Status - Relation Status Age at Mother Mother's Sister Mother's Brother Maternal Grandfather Level of Service:14100 NE OFFICE/OUTPATIENT ESTABLISHED LOW MDM 20 MIN [facility] Clinical Supporton Clinical Support [id number] Brooke Dior 1975 Date Provider Department Center 05/04/2023 [facility] Relation Age of Onset Heart failure Mother Coronary artery disease Mother Other Mother Other Mother Valvular heart disease Mother Coronary artery disease Mother's Sister Coronary artery disease Mother's Brother Coronary artery disease Maternal Grandfather Family Status - Relation Status Age at Mother Mother's Sister Mother's Brother Maternal Grandfather [facility] Follow-Upon 05-04-2023 Follow-Up [id number] Brooke Dior 1975 Date Provider Department Center 05/04/2023 Michel-DMITRI WESTBROOK GLV [facility] Family History Problem Relation Age of Onset Heart failure Mother Coronary artery disease Mother Other Mother Other Mother Valvular heart disease Mother Coronary artery disease Mother's Sister Coronary artery disease Mother's Brother Coronary artery disease Maternal Grandfather Family Status - Relation Status Age at Mother Mother's Sister Mother's Brother Maternal Grandfather Level of Service:93319 NE OFFICE/OUTPATIENT ESTABLISHED LOW MDM 20-29 MIN Reason for Visit and Comments: Follow-up [020859] [facility] 36on 04-07-2023 36 Please see bps [facility] 36 142/81, 145/85, 142/79, 139/83, 141/86, 131/85, 141/93, 140/79, 141/85, 139/96, 128/87 [facility] Orders Onlyon 04-07-2023 Orders Only [id number] Brooke Dior 1975 Provider Department Center 04/07/2023 KYLE BUSTILLOS MARLON [facility] Family History Problem Relation Age of Onset Heart failure Mother Coronary artery disease Mother Other Mother Other Mother Valvular heart disease Mother Coronary artery disease Mother's Sister Coronary artery disease Mother's Brother Coronary artery disease Maternal Grandfather Family Status - Relation Status Age at Mother Mother's Sister Mother's Brother Maternal Grandfather Normal [facility] 36on 04-05-2023 36 Lm 04/05 [facility] Office Visiton 03-23-2023 Follow-up visit [id number] Brooke Dior 1975 Provider Department Center 03/23/2023 DMITRI ENCARNACION [facility] Family History Problem Relation Age of Onset Heart failure Mother Coronary artery disease Mother Other Mother Other Mother Valvular heart disease Mother Coronary artery disease Mother's Sister Coronary artery disease Mother's Brother Coronary artery disease Maternal Grandfather Family Status - Relation Status Age at Mother Mother's Sister Mother's Brother Maternal Grandfather Level of Service:61976 NE OFFICE/OUTPATIENT NEW LOW MDM 30-44 MINUTES Normal [facility] Office Visiton 03-19-2023 Follow-up visit [id number] Brooke Dior 1975 Provider Department Center 03/19/2023 KYLE BUSTILLOS MARLON [facility] Family History Problem Relation Age of Onset Heart failure Mother Coronary artery disease Mother Other Mother Other Mother Valvular heart disease Mother Coronary artery disease Mother's Sister Coronary artery disease Mother's Brother Coronary artery disease Maternal Grandfather Family Status - Relation Status Age at Mother Mother's Sister Mother's Brother Maternal Grandfather Level of Service:96504 NE OFFICE/OUTPATIENT ESTABLISHED MOD MDM 30-39 MIN Normal [facility] Office Visiton 10-21-2022 Follow-up visit [id number] Brooke Dior 1975 Date Provider Department Center 10/21/2022 384ViancaRACHELLE GARAY Family History Problem Relation Age of Onset Heart failure Mother Coronary artery disease Mother Other Mother Other Mother Valvular heart disease Mother Coronary artery disease Mother's Sister Coronary artery disease Mother's Brother Coronary artery disease Maternal Grandfather Family Status - Relation Status Age at Mother Mother's Sister Mother's Brother Maternal Grandfather Level of Service:40364 NE OFFICE/OUTPATIENT ESTABLISHED LOW MDM 20-29 MIN Reason for Visit and Comments: Follow-up [427042] - Go over test results Normal [facility] Office Visiton 07-29-2022 Follow-up visit [id number] Brooke Dior 1975 Date Provider Department Center 07/29/2022 3848-RACHELLE GARAY Family History Problem Relation Age of Onset Heart failure Mother Coronary artery disease Mother Other Mother Other Mother Valvular heart disease Mother Coronary artery disease Mother's Sister Coronary artery disease Mother's Brother Coronary artery disease Maternal Grandfather Family Status - Relation Status Age at Mother Mother's Sister Mother's Brother Maternal Grandfather Level of Service:30800 NE OFFICE/OUTPATIENT NEW MODERATE MDM 45-59 MINUTES Reason for Visit and Comments: abnormal stress test [Other] Normal [facility] NM STRESS/REST MULTIon 07-09 NM STRESS/REST MULTI Patient: DIORBROOKE GARDUNO. Exam Date: 07/09/2022 : 1975 Gender:F Ordering : DR JESUS SMITH . Admission #: [id number] Family : Order #: [id number] CLICK HERE TO VIEW EXAM RADIOLOGY REPORT [...] M.D. on 07/13/2022 at 15:43 Normal [facility] Covid-19 PCR (CVDTB)on SARS-CoV-2 (COVID-19) RNA BETZY+probe Ql (Unsp spec) Not detected Normal NOT DETECTED [facility] Comment on above: Result Comment: This test is not yet approved or cleared by the [place] FDA. When there are no FDA-approved or cleared tests available, and other criteria are met, FDA can make tests available under an emergency access mechanism called an Emergency Use Authorization (EUA). The EUA for this test is supported by the [place] of Health and Human Service's (HHS's) declaration [...] consistent with SARS-CoV-2. Performed By: #### C [facility] #### [facility] [address] [place] [address] Dr. Terrance Hernandez INFL[facility]ENZA [facility] Normal [facility] Comment on above: Result Comment: Nega tive for Flu B protein antigen. Infection due to Flu B cannot be ruled out. Flu B antigen in the sample may be below the detection limit of the test. Performed By: #### B MECHANICAL ENGINEERING OFFICER, CMP, HSTROPN #### [facility] [address] [place] [address] Dr. Terrance Hernandez INFLUENZA A AG Positive Abnormal NEGATIVE SEE COMMENT [facility] Comment on above: Performed By: #### B MECHANICAL ENGINEERING OFFICER, CMP, HSTROPN #### [facility] [address] [place] [address] Dr. Terrance Hernandez INFLUENZA B AG Negative Normal NEGATIVE SEE COMMENT [facility] Comment on above: Performed By: #### B MECHANICAL ENGINEERING OFFICER, CMP, HSTROPN #### [facility] [address] [place] [address] Dr. Terrance Hernandez INFLUPOS SEE BELOW Normal [facility] Comment on above: Result Comment: NOTE : Live attenuated influenzae vaccine viruses can cause a positive result for a rapid influenza diagnostic test if administered up to 7 days prior to rapid testing. Performed By: #### B MECHANICAL ENGINEERING OFFICER, CMP, HSTROPN #### [facility] [address] [place] [address] Dr. Terrance Hernandez INTERNAL CONTROLS Within Normal Limits Normal Wi thin Normal Limits [facility] Comment on above: Performed By: #### B MECHANICAL ENGINEERING OFFICER, CMP, HSTROPN #### [facility] [address] [place] [address] Dr. Terrance Hernandez CBC AUTO DIFFon 06-19-2022 BASO # 0.1 103/ul Normal 0.0-0.1 [facility] Comment on above: Performed By: #### C BC #### [facility] [address] [place] [address] Dr. Terrance Hernandez Basophils/100 WBC (Bld) 0.8 % Normal 0.2-2.0 [facility] Comment on above: Performed By: #### C BC #### [facility] [address] [place] [address] Dr. Terrance Hernandez EO # 0.1 103/ul Normal 0.0-0.7 [facility] Comment on above: Performed By: #### C BC #### [facility] [address] [place] [address] Dr. Terrance Hernandez Eosinophils/100 WBC (Bld) 1.4 % Normal 0.9-7.0 [facility] Comment on above: Performed By: #### C BC #### [facility] [address] [place] [address] Dr. Terrance Hernandez Erythrocyte distribution width (RBC) [Ratio] 13.2 % Normal 11.0-15.0 [facility] Comment on above: Performed By: #### C BC #### [facility] [address] [place] [address] Dr. Terrance Hernandez Hematocrit (Bld) [Volume fraction] 41.2 % Normal 36.0-48.0 [facility] Comment on above: Performed By: #### C BC #### [facility] [address] [place] [address] Dr. Terrance Hernandez Hemoglobin (Bld) [Mass/Vol] 13.7 g/dL Normal 12.0-16.0 [facility] Comment on above: Performed By: #### C BC #### [facility] [address] [place] [address] Dr. Terrance Hernandez IG # 0.01 10e3/ul Normal 0.00-0.03 [facility] Comment on above: Performed By: #### C BC #### [facility] [address] [place] [address] Dr. Terrance Hernandez IG % 0.2 % Normal 0.0-0.5 [facility] Comment on above: Performed By: #### C BC #### [facility] [address] [place] [address] Dr. Terrance Hernandez LYMPH # 2.0 103/ul Normal 1.2-3.8 [facility] Comment on above: Performed By: #### C BC #### [facility] [address] [place] [address] Dr. Terrance Hernandez Lymphocytes/100 WBC (Bld) 29.4 % Normal 20.5-60.0 [facility] Comment on above: Performed By: #### C BC #### [facility] [address] [place] [address] Dr. Terrance Hernandez MANUAL DIFF REQ NO Normal [facility] Comment on above: Performed By: #### C BC #### [facility] [address] [place] [address] Dr. Terrance Hernandez MCH (RBC) [Entitic mass] 29.2 pg Normal 26.7-34.0 [facility] Comment on above: Performed By: #### C BC #### [facility] [address] [place] [address] Dr. Terrance Hernandez MCHC (RBC) [Mass/Vol] 33.3 g/dL Normal 29.9-35.2 [facility] Comment on above: Performed By: #### C BC #### [facility] [address] [place] [address] Dr. Terrance Hernandez MCV (RBC) [Entitic vol] 87.8 fL Normal 81.0-99.0 [facility] Comment on above: Performed By: #### C BC #### [facility] [address] [place] [address] Dr. Terrance Hernandez MONO # 0.5 103/ul Normal 0.3-0.8 [facility] Comment on above: Performed By: #### C BC #### [facility] [address] [place] [address] Dr. Terrance Hernandez Monocytes/100 WBC (Bld) 8.0 % Normal 1.7-12.0 [facility] Comment on above: Performed By: #### C BC #### [facility] [address] [place] [address] Dr. Terrance Hernandez NEUT # 4.0 103/ul Normal 1.4-6.5 [facility] Comment on above: Performed By: #### C BC #### [facility] [address] [place] [address] Dr. Terrance Hernandez Neutrophils/100 WBC (Bld) 60.2 % Normal 43.0-75.0 [facility] Comment on above: Performed By: #### C BC #### [facility] [address] [address] [address] Terrance Hernandez Platelet mean volume (Bld) [Entitic vol] 9.3 fL Critically low 9.5-13.5 [facility] Comment on above: Performed By: #### C BC #### [facility] [address] [address] [address] Terrance Hernandez PLT 250 103/ul Normal 150-450 [facility] Comment on above: Performed By: #### C BC #### [facility] [address] [address] [address] Terrance Hernandez RBC 4.69 106/ul Normal 4.20-5.40 [facility] Comment on above: Performed By: #### C BC #### [facility] [address] [place] [address] Dr. Terrance Hernandez WBC 6.6 103/ul Normal 4.0-11.0 [facility] Comment on above: Performed By: #### C BC #### [facility] [address] [place] [address] Dr. Terrance Hernandez ECHOCARDIO M/2D COMPLETEon 1 08-19-2021 ECHOCARDIO M/2D COMPLETE Patient: BROOKE DIOR Exam Date: 06/19/2022 : 1975 Gender:F Ordering : DR YISEL OLMEDO . Admission #: [id number] Family : DR JESUS SMITH . Order #: [id number] CLICK HERE TO VIEW EXAM ECHOCARDIOGRAM REPORT [...] Bell M.D. on 06/24/2022 at 13:01 Normal [facility] PROF CHEM 8 (BAS METB)on Anion gap [Moles/Vol] 9.9 mmol/L Normal [facility] Comment on above: Performed By: #### B MECHANICAL ENGINEERING OFFICER, CMP, HSTROPN #### [facility] [address] [place] [address] Dr. Terrance Hernandez Calcium [Mass/Vol] 8.8 mg/dL Normal 8.5-10.1 [facility] Comment on above: Performed By: #### B MECHANICAL ENGINEERING OFFICER, CMP, HSTROPN #### [facility] [address] [place] [address] Dr. Terrance Hernandez Chloride [Moles/Vol] 105 mmol/L Normal 98-107 [facility] Comment on above: Performed By: #### B MECHANICAL ENGINEERING OFFICER, CMP, HSTROPN #### [facility] [address] [place] [address] Dr. Terrance Hernandez CO2 [Moles/Vol] 28.6 mmol/L Normal 21.0-32.[address] [facility] Comment on above: Performed By: #### B MECHANICAL ENGINEERING OFFICER, CMP, HSTROPN #### [facility] [address] [address] [address] Terrance Hernandez Creatinine [Mass/Vol] 0.59 mg/dL Normal 0.55-1.02 [facility] Comment on above: Performed By: #### B MECHANICAL ENGINEERING OFFICER, CMP, HSTROPN #### [facility] [address] [address] [address] Terrance Hernandez EGFR-AF STATELESS >60 Normal >=60 [facility] Comment on above: Performed By: #### B MECHANICAL ENGINEERING OFFICER, CMP, HSTROPN #### [facility] [address] [address] [address] Terrance Hernandez EGFR-NON AF STATELESS >60 Normal >=60 [facility] Comment on above: Performed By: #### B MECHANICAL ENGINEERING OFFICER, CMP, HSTROPN #### [facility] [address] [address] [address] Terrance Hernandez Glucose [Mass/Vol] 99 mg/dL Normal 74-106 [facility] Comment on above: Performed By: #### B MECHANICAL ENGINEERING OFFICER, CMP, HSTROPN #### [facility] [address] [address] [address] Terrance Hernandez Potassium [Moles/Vol] 3.5 mmol/L Normal 3.5-5.1 [facility] Comment on above: Performed By: #### B MECHANICAL ENGINEERING OFFICER, CMP, HSTROPN #### [facility] [address] [address] [address] Terrance Hernandez Sodium [Moles/Vol] 140 mmol/L Normal 136-145 [facility] Comment on above: Performed By: #### B MECHANICAL ENGINEERING OFFICER, CMP, HSTROPN #### [facility] [address] [address] [address] Terrance Hernandez Urea nitrogen [Mass/Vol] 13.0 mg/dL Normal 7.0-18.0 [facility] Comment on above: Performed By: #### B MECHANICAL ENGINEERING OFFICER, CMP, HSTROPN #### [facility] [address] [address] [address] Terrance Hernandez Urea nitrogen/Creatinine [Mass ratio] 22.0 mg/mg Normal [facility] Comment on above: Performed By: #### B MECHANICAL ENGINEERING OFFICER, CMP, HSTROPN #### [facility] [address] [place] [address] Dr. Terrance Hernandez TROPONIN, HIGH SENSITIVITYon 06-19-2022 HSTROP 104.8 pg/mL Critically high 4.0-51.3 [facility] Comment on above: Result Comment: CUT- OFF POINTS HAVE BEEN ESTABLISHED BASED ON THE FOURTH UNIVERSAL DEFINITIONS OF MYOCARDIAL INFARCTION. THE UPPER REFERENCE LIMIT (URL) OF TROPONIN, DEFINED THE 99TH PERCENTILE OF cTnI DISTRIBUTION IN A REFERENCE POPULATION, HAS BEEN CONFIRMED THE DECISION THRESHOLD FOR [place] DIAGNOSIS. Performed By: #### B MECHANICAL ENGINEERING OFFICER, CMP, HSTROPN #### [facility] [address] [place] [address] Dr. Terrance Hernandez BNPon 06-18-2022 Natriuretic peptide B (Bld) [Mass/Vol] 59.0 pg/mL Normal <=450.0 [facility] Comment on above: Performed By: #### B MECHANICAL ENGINEERING OFFICER, CMP, HSTROPN #### [facility] [address] [place] [address] Dr. Terrance Hernandez CBC AUTO DIFFon 06-18-2022 BASO # 0.0 103/ul Normal 0.0-0.1 [facility] Comment on above: Performed By: #### C BC #### [facility] [address] [place] [address] Dr. Terrance Hernandez Basophils/100 WBC (Bld) 0.5 % Normal 0.2-2.0 [facility] Comment on above: Performed By: #### C BC #### [facility] [address] [place] [address] Dr. Terrance Hernandez EO # 0.1 103/ul Normal 0.0-0.7 [facility] Comment on above: Performed By: #### C BC #### [facility] [address] [place] [address] Dr. Terrance Hernandez Eosinophils/100 WBC (Bld) 1.3 % Normal 0.9-7.0 [facility] Comment on above: Performed By: #### C BC #### [facility] [address] [place] [address] Dr. Terrance Hernandez Erythrocyte distribution width (RBC) [Ratio] 13.2 % Normal 11.0-15.0 [facility] Comment on above: Performed By: #### C BC #### [facility] [address] [place] [address] Dr. Terrance Hernandez Hematocrit (Bld) [Volume fraction] 40.7 % Normal 36.0-48.0 [facility] Comment on above: Performed By: #### C BC #### [facility] [address] [place] [address] Dr. Terrance Hernandez Hemoglobin (Bld) [Mass/Vol] 13.6 g/dL Normal 12.0-16.0 [facility] Comment on above: Performed By: #### C BC #### [facility] [address] [place] [address] Dr. Terrance Hernandez IG # 0.01 10e3/ul Normal 0.00-0.03 [facility] Comment on above: Performed By: #### C BC #### [facility] [address] [place] [address] Dr. Terrance Hernandez IG % 0.2 % Normal 0.0-0.5 [facility] Comment on above: Performed By: #### C BC #### [facility] [address] [place] [address] Dr. Terrance Hernandez LYMPH # 1.7 103/ul Normal 1.2-3.8 [facility] Comment on above: Performed By: #### C BC #### [facility] [address] [place] [address] Dr. Terrance Hernandez Lymphocytes/100 WBC (Bld) 25.8 % Normal 20.5-60.0 [facility] Comment on above: Performed By: #### C BC #### [facility] [address] [place] [address] Dr. Terrance Hernandez MANUAL DIFF REQ NO Normal [facility] Comment on above: Performed By: #### C BC #### [facility] [address] [place] [address] Dr. Terrance Hernandez MCH (RBC) [Entitic mass] 29.2 pg Normal 26.7-34.0 [facility] Comment on above: Performed By: #### C BC #### [facility] [address] [address] [address] Terrance Hernandez MCHC (RBC) [Mass/Vol] 33.4 g/dL Normal 29.9-35.2 [facility] Comment on above: Performed By: #### C BC #### [facility] [address] [address] [address] Terrance Hernandez MCV (RBC) [Entitic vol] 87.5 fL Normal 81.0-99.0 [facility] Comment on above: Performed By: #### C BC #### [facility] [address] [place] [address] Dr. Terrance Hernandez MONO # 0.6 103/ul Normal 0.3-0.8 [facility] Comment on above: Performed By: #### C BC #### [facility] [address] [place] [address] Dr. Terrance Hernandez Monocytes/100 WBC (Bld) 8.8 % Normal 1.7-12.0 [facility] Comment on above: Performed By: #### C BC #### [facility] [address] [place] [address] Dr. Terrance Hernandez NEUT # 4.1 103/ul Normal 1.4-6.5 [facility] Comment on above: Performed By: #### C BC #### [facility] [address] [address] [address] Terrance Hernandez Neutrophils/100 WBC (Bld) 63.4 % Normal 43.0-75.0 [facility] Comment on above: Performed By: #### C BC #### [facility] [address] [address] [address] Terrance Hernandez Platelet mean volume (Bld) [Entitic vol] 9.3 fL Critically low 9.5-13.5 [facility] Comment on above: Performed By: #### C BC #### [facility] [address] [address] [address] Terrance Hernandez PLT 255 103/ul Normal 150-450 [facility] Comment on above: Performed By: #### C BC #### [facility] [address] [place] [address] Dr. Terrance Hernandez RBC 4.65 106/ul Normal 4.20-5.40 [facility] Comment on above: Performed By: #### C BC #### [facility] [address] [place] [address] Dr. Terrance Hernandez WBC 6.4 103/ul Normal 4.0-11.0 [facility] Comment on above: Performed By: #### C BC #### [facility] [address] [place] [address] Dr. Terrance Hernandez [facility] SARS-CoV-2 (COVID-19) RNA BETZY+probe Ql (Unsp spec) Not detected Normal NOT DETECTED [facility] Comment on above: Result Comment: When diagnostic [...] for this test is supported by the [place] of Health and Human Service's declaration that [...] longer be used). Performed By: #### B MECHANICAL ENGINEERING OFFICER, CMP, HSTROPN #### [facility] [address] [place] [address] Dr. Terrance Hernandez D-DIMERon 06-18-2022 D-DIMER 0.48 mg/L FEU Normal <=0.59 [facility] Comment on above: Performed By: #### B MECHANICAL ENGINEERING OFFICER, CMP, HSTROPN #### [facility] [address] [address] [address] Terrance Hernandez D-DIMER COMMENTS SEE BELOW Normal [facility] Comment on above: Result Comment: Incr eases [...] and generalized hospitalization. Performed By: #### B MECHANICAL ENGINEERING OFFICER, CMP, HSTROPN #### [facility] [address] [place] [address] Dr. Terrance Hernandez DRUG SCREEN RAPID (URINE)on 06-18-2022 AMP Negative Normal NEGATIVE [facility] Comment on above: Performed By: #### B MECHANICAL ENGINEERING OFFICER, CMP, HSTROPN #### [facility] [address] [place] [address] Dr. Terrance Hernandez BAR Negative Normal NEGATIVE [facility] Comment on above: Performed By: #### B MECHANICAL ENGINEERING OFFICER, CMP, HSTROPN #### [facility] [address] [place] [address] Dr. Terrance Hernandez BUP Negative Normal NEGATIVE [facility] Comment on above: Performed By: #### B MECHANICAL ENGINEERING OFFICER, CMP, HSTROPN #### [facility] [address] [place] [address] Dr. Terrance Hernandez BZO Negative Normal NEGATIVE [facility] Comment on above: Performed By: #### B MECHANICAL ENGINEERING OFFICER, CMP, HSTROPN #### [facility] [address] [place] [address] Dr. Terrance Hernandez MARGOTH Negative Normal NEGATIVE [facility] Comment on above: Performed By: #### B MECHANICAL ENGINEERING OFFICER, CMP, HSTROPN #### [facility] [address] [place] [address] Dr. Terrance Hernandez CUT-OFFS SEE BELOW Normal [facility] Comment on above: Result Comment: AMP (Amphetamine): 500ng/mL, BAR (Barbituates): 200 ng/mL, BZO (Benzodiazepines): 150 ng/mL, BUP (Buprenorphine): 10 ng/mL, MARGOTH (Cocaine): 150 ng/mL, mAMP (Methamphetamine): 500 ng/mL, MTD (Methadone): 200 ng/mL, OPI (Opiates): 100 ng/mL, OXY (Oxycodone): 100 ng/mL, PCP (Phencyclidine): 25 ng/mL, PPX (Propoxyphene): 300 ng/mL, THC (Cannabinoids): 50 ng/mL, TCA (Trycyclic Antidepressants): 300 ng/mL Performed By: #### B MECHANICAL ENGINEERING OFFICER, CMP, HSTROPN #### [facility] [address] [place] [address] Dr. Terrance Hernandez DRUG CUT HEADER DRUG CLASS TEST SYSTEM CUT-OFF CONCENTRATIONS ARE FOLLOWS: Normal [facility] Comment on above: Performed By: #### B MECHANICAL ENGINEERING OFFICER, CMP, HSTROPN #### [facility] [address] [place] [address] Dr. Terrance Hernandez mAMP Negative Normal NEGATIVE [facility] Comment on above: Performed By: #### B MECHANICAL ENGINEERING OFFICER, CMP, HSTROPN #### [facility] [address] [place] [address] Dr. Terrance Hernandez MTD Negative Normal NEGATIVE [facility] Comment on above: Performed By: #### B MECHANICAL ENGINEERING OFFICER, CMP, HSTROPN #### [facility] [address] [place] [address] Dr. Terrance Hernandez OPI Negative Normal NEGATIVE [facility] Comment on above: Performed By: #### B MECHANICAL ENGINEERING OFFICER, CMP, HSTROPN #### [facility] [address] [place] [address] Dr. Terrance Hernandez OXY Negative Normal NEGATIVE [facility] Comment on above: Performed By: #### B MECHANICAL ENGINEERING OFFICER, CMP, HSTROPN #### [facility] [address] [place] [address] Dr. Terrance Hernandez PCP Negative Normal NEGATIVE [facility] Comment on above: Performed By: #### B MECHANICAL ENGINEERING OFFICER, CMP, HSTROPN #### [facility] [address] [address] [address] Terrance Hernandez PPX Negative Normal NEGATIVE [facility] Comment on above: Performed By: #### B MECHANICAL ENGINEERING OFFICER, CMP, HSTROPN #### [facility] [address] [address] [address] Terrance Hernandez TCA Negative Normal NEGATIVE [facility] Comment on above: Performed By: #### B MECHANICAL ENGINEERING OFFICER, CMP, HSTROPN #### [facility] [address] [address] [address] Terrance Hernandez THC Negative Normal NEGATIVE [facility] Comment on above: Performed By: #### B MECHANICAL ENGINEERING OFFICER, CMP, HSTROPN #### [facility] [address] [address] [address] Terrance Hernandez PROF 14(COMP METB)on 022 Albumin [Mass/Vol] 3.6 g/dL Normal 3.4-5.0 [facility] Comment on above: Performed By: #### B MECHANICAL ENGINEERING OFFICER, CMP, HSTROPN #### [facility] [address] [address] [address] Terrance Hernandez Albumin/Globulin [Mass ratio] 1.1 {ratio} Normal [facility] Comment on above: Performed By: #### B MECHANICAL ENGINEERING OFFICER, CMP, HSTROPN #### [facility] [address] [address] [address] Terrance Hernandez ALP [Catalytic activity/Vol] 89 U/L Normal 46-116 [facility] Comment on above: Performed By: #### B MECHANICAL ENGINEERING OFFICER, CMP, HSTROPN #### [facility] [address] [address] [address] Terrance Hernandez ALT [Catalytic activity/Vol] 44 U/L Normal 14-59 [facility] Comment on above: Performed By: #### B MECHANICAL ENGINEERING OFFICER, CMP, HSTROPN #### [facility] [address] [address] [address] Terrance Hernandez Anion gap [Moles/Vol] 8.5 mmol/L Normal [facility] Comment on above: Performed By: #### B MECHANICAL ENGINEERING OFFICER, CMP, HSTROPN #### [facility] [address] [address] [address] Terrance Hernandez AST [Catalytic activity/Vol] 21 U/L Normal 15-37 [facility] Comment on above: Performed By: #### B MECHANICAL ENGINEERING OFFICER, CMP, HSTROPN #### [facility] [address] [address] [address] Terrance Hernandez Bilirubin [Mass/Vol] 1.0 mg/dL Normal 0.2-1.0 [facility] Comment on above: Performed By: #### B MECHANICAL ENGINEERING OFFICER, CMP, HSTROPN #### [facility] [address] [place] [address] Dr. Terrance Hernandez Calcium [Mass/Vol] 8.7 mg/dL Normal 8.5-10.1 [facility] Comment on above: Performed By: #### B MECHANICAL ENGINEERING OFFICER, CMP, HSTROPN #### [facility] [address] [address] [address] Terrance Hernandez Chloride [Moles/Vol] 106 mmol/L Normal 98-107 [facility] Comment on above: Performed By: #### B MECHANICAL ENGINEERING OFFICER, CMP, HSTROPN #### [facility] [address] [place] [address] Dr. Terrance Hernandez CO2 [Moles/Vol] 29.0 mmol/L Normal 21.0-32.0 [facility] Comment on above: Performed By: #### B MECHANICAL ENGINEERING OFFICER, CMP, HSTROPN #### [facility] [address] [place] [address] Dr. Terrance Hernandez Creatinine [Mass/Vol] 0.63 mg/dL Normal 0.55-1.02 [facility] Comment on above: Performed By: #### B MECHANICAL ENGINEERING OFFICER, CMP, HSTROPN #### [facility] [address] [place] [address] Dr. Terrance Hernandez EGFR-AF STATELESS >60 Normal >=60 [facility] Comment on above: Performed By: #### B MECHANICAL ENGINEERING OFFICER, CMP, HSTROPN #### [facility] [address] [address] [address] Terrance Hernandez EGFR-NON AF STATELESS >60 Normal >=60 [facility] Comment on above: Performed By: #### B MECHANICAL ENGINEERING OFFICER, CMP, HSTROPN #### [facility] [address] [address] [address] Terrance Hernandez Globulin (S) [Mass/Vol] 3.4 g/dL Normal [facility] Comment on above: Performed By: #### B MECHANICAL ENGINEERING OFFICER, CMP, HSTROPN #### [facility] [address] [address] [address] Terrance Hernandez Glucose [Mass/Vol] 102 mg/dL Normal 74-106 [facility] Comment on above: Performed By: #### B MECHANICAL ENGINEERING OFFICER, CMP, HSTROPN #### [facility] [address] [place] [address] Dr. Terrance Hernandez Potassium [Moles/Vol] 3.5 mmol/L Normal 3.5-5.1 [facility] Comment on above: Performed By: #### B MECHANICAL ENGINEERING OFFICER, CMP, HSTROPN #### [facility] [address] [address] [address] Terrance Hernandez Protein [Mass/Vol] 7.0 g/dL Normal 6.4-8.2 [facility] Comment on above: Performed By: #### B MECHANICAL ENGINEERING OFFICER, CMP, HSTROPN #### [facility] [address] [address] [address] Terrance Hernandez Sodium [Moles/Vol] 140 mmol/L Normal 136-145 [facility] Comment on above: Performed By: #### B MECHANICAL ENGINEERING OFFICER, CMP, HSTROPN #### [facility] [address] [address] [address] Terrance Hernandez Urea nitrogen [Mass/Vol] 11.0 mg/dL Normal 7.0-18.0 [facility] Comment on above: Performed By: #### B MECHANICAL ENGINEERING OFFICER, CMP, HSTROPN #### [facility] [address] [address] [address] Terrance Hernandez Urea nitrogen/Creatinine [Mass ratio] 17.5 mg/mg Normal [facility] Comment on above: Performed By: #### B MECHANICAL ENGINEERING OFFICER, CMP, HSTROPN #### [facility] [address] [address] [address] Terrance Hernandez TROPONIN, HIGH SENSITIVITYon 06-18-2022 HSTROP 112.7 pg/mL Critically high 4.0-51.3 [facility] Comment on above: Result Comment: CUT- OFF POINTS HAVE BEEN ESTABLISHED BASED ON THE FOURTH UNIVERSAL DEFINITIONS OF MYOCARDIAL INFARCTION. THE UPPER REFERENCE LIMIT (URL) OF TROPONIN, DEFINED THE 99TH PERCENTILE OF cTnI DISTRIBUTION IN A REFERENCE POPULATION, HAS BEEN CONFIRMED THE DECISION THRESHOLD FOR [place] DIAGNOSIS. Performed By: #### H STROPN #### [facility] [address] [place] [address] Dr. Terrance Hernandez HSTROP 111.6 pg/mL Critically high 4.0-51.3 [facility] Comment on above: Result Comment: CUT- OFF POINTS HAVE BEEN ESTABLISHED BASED ON THE FOURTH UNIVERSAL DEFINITIONS OF MYOCARDIAL INFARCTION. THE UPPER REFERENCE LIMIT (URL) OF TROPONIN, DEFINED THE 99TH PERCENTILE OF cTnI DISTRIBUTION IN A REFERENCE POPULATION, HAS BEEN CONFIRMED THE DECISION THRESHOLD FOR [place] DIAGNOSIS. Performed By: #### H STROPN #### [facility] [address] [place] [address] Dr. Terrance Hernandez HSTROP 110.0 pg/mL Critically high 4.0-51.3 [facility] Comment on above: Result Comment: CUT- OFF POINTS HAVE BEEN ESTABLISHED BASED ON THE FOURTH UNIVERSAL DEFINITIONS OF MYOCARDIAL INFARCTION. THE UPPER REFERENCE LIMIT (URL) OF TROPONIN, DEFINED THE 99TH PERCENTILE OF cTnI DISTRIBUTION IN A REFERENCE POPULATION, HAS BEEN CONFIRMED THE DECISION THRESHOLD FOR [place] DIAGNOSIS. Performed By: #### B MECHANICAL ENGINEERING OFFICER, CMP, HSTROPN #### [facility] [address] [address] [address] Terrance Hernandez HSTROP 107.0 pg/mL Critically high 4.0-51.3 [facility] Comment on above: Result Comment: CUT- OFF POINTS HAVE BEEN ESTABLISHED BASED ON THE FOURTH UNIVERSAL DEFINITIONS OF MYOCARDIAL INFARCTION. THE UPPER REFERENCE LIMIT (URL) OF TROPONIN, DEFINED THE 99TH PERCENTILE OF cTnI DISTRIBUTION IN A REFERENCE POPULATION, HAS BEEN CONFIRMED THE DECISION THRESHOLD FOR [place] DIAGNOSIS. Performed By: #### H STROPN #### [facility] [address] [place], [place] [address] Dr. Terrance Hernandez HSTROP 102.0 pg/mL Critically high 4.0-51.[address] [facility] Comment on above: Result Comment: CUT- OFF POINTS HAVE BEEN ESTABLISHED BASED ON THE FOURTH UNIVERSAL DEFINITIONS OF MYOCARDIAL INFARCTION. THE UPPER REFERENCE LIMIT (URL) OF TROPONIN, DEFINED THE 99TH PERCENTILE OF cTnI DISTRIBUTION IN A REFERENCE POPULATION, HAS BEEN CONFIRMED THE DECISION THRESHOLD FOR [place] DIAGNOSIS. Performed By: #### B MECHANICAL ENGINEERING OFFICER, CMP, HSTROPN #### [facility] [address] [place], [place] [address] Dr. Terrance Hernandez TSHon 06-18-2022 TSH 1.399 uIU/mL Normal 0.358-3.740 [facility] Comment on above: Performed By: #### T SH #### [facility] [address] [place], [place] [address] Dr. Terrance Hernandez XR CHEST 2 Von [...] by: GLO MCCOY Date: 2022-06-18 10:59 Normal [facility] Physician Referralon 021 Physician Referral [phone] [id number] Normal [facility] Encounters Encounter Date Encounter Type Care Provider Facility Start: 07-21-2023 End: 07-21-2023 ambulatory KYLE [facility] Start: 05-04-2023 ambulatory [facility] Start: 03-23-2023 ambulatory [facility] Start: 03-19-2023 End: 03-19-2023 ambulatory KYLE HERRERA [facility] Start: 10-21-2022 End: 10-21-2022 [facility] Start: 07-29-2022 End: 07-29-2022 ambulatory ED[facility]a [facility] Start: 07-13-2022 End: 07-14-[address] JESUS SMITH . Facility:[facility] Start: 07-09-2022 End: 07-10-[address] JESUS SMITH . Facility:[facility] Start: 07-02-2022 End: 07-02-[address] JESUS SMITH . Facility:[facility] Start: 06-18-2022 End: 06-19-[address] JESUS SMITH . Facility: Payers Date Payer Category Payer Unknown [id number] 1975 Unknown [id number] [id number] [id number] 1975 Unknown [id number] 2.16.84 [id number] 1975 Unknown [id number] 2.16.84 [id number] 1975 Unknown [id number] 2.16.84 [id number] 1959 Private Health Insurance [id number] Clinical Notes 07-29-2022 to 07-21-2023 Note Date & Type Note Facility 07-21-2023 Note Currently resolved [facility] 07-21-2023 Note Patient here for 4 m [...] All other systems reviewed and are negative. 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 Review of Systems Cardiovascular: Positive for leg [...] chest pain Currently resolved RTC 6 month [facility] 07-20-2023 Note Hypertension is well controlled with addition of hydrochlorothiazide Continue toprol 100 mg daily and hydrochlorothiazide. Renal function had remained stable and normal [facility] 07-20-2023 Note F/U with Dr Westbrook- vascular [facility] 05-04-2023 Note Subjective Patient ID: Brooke Dior [...] past 36 hour(s)). No follow-ups on file. [facility] 04-07-2023 Note Staff reported pt's b/p at [...] assess renal function and electrolyte Kyle Herrera MECHANICAL ENGINEERING OFFICER Division of Cardiology, [facility]- [phone] Pager- [phone] Email- [email or web address] 03-23-2023 Note Subjective Patient ID: Brooke Dior is a 47 y.o. female who presents for new patient consult from Kyle Herrera MECHANICAL ENGINEERING OFFICER at [facility] for BLE edema. HPI Patient presenting with [...] past 36 hour(s)). No follow-ups on file. [facility] 03-19-2023 Note Hypertension is unco ntrolled Continue toprol and start hydrochlorothiazide 25 mg daily Continue to monitor blood pressure at home discussed with patient goal is 130/80 or less and staff to call her in 1 to 2 weeks to review her blood pressure log Discussed with her about side effects and allergic reactions and when to call office and she voiced understanding [facility] 03-19-2023 Note [facility] of [facility] Recommended to apply Eucerin cream daily and compression socks during the day 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 She has [id number] compression socks that most of time hurts [...] and allergic danny (more content not included)... [facility] 03-19-2023 Note Patient here for 6 m [...] All other systems reviewed and are negative. [facility] 10-21-2022 Note Cardiology Clinic No te Chief [...] -[facility] medical ma (more content not included)... [facility] 07-29-2022 Note New patient here to establish [...] All other systems reviewed and are negative. [facility] 07-29-2022 Note Cardiology Clinic No te Chief [...] Echo results: No (more content not included)... [facility] Summary Purpose Family History No Family History Records FoundNo Family History Records FoundNo Family History Records Found Advance Directives No Advanced Directives Records FoundNo Advanced Directives Records FoundNo Advanced Directives Records Found Additional Source Comments INFORMATION SOURCE (unrecogn ized section and content) DATE CREATED AUTHOR 03/09/2021 [facility] DATE CREATED AUTHOR AUTHOR'S ORGANIZ ATION 11/27/2022 Jose De Jesus Isaac [facility] DATE CREATED AUTHOR AUTHOR'S ORGANIZ ATION 07/22/2023 [facility] FOR RECORDS PERTAINING TO PATIENTS WHO [...] BE BASED ON THE PRIMARY CLINICAL RECORDS. [employer] provides no warranty or guarantee of the accuracy or completeness of information in this document.
== END 2023-08-30 07:51 | disposition home or self-care (01) ==
LOC: MAMMO 07:50
PROVIDERS: PCP Family Medicine; Visit Provider Family Medicine
DX: R92.8 Other abnormal and inconclusive findings on diagnostic imaging of breast (principal); Z80.8 Family history of malignant neoplasm of other organs or systems; R92.0 Mammographic microcalcification found on diagnostic imaging of breast
CPT/HCPCS: 76642; 77066

== ENCOUNTER 2023-09-20 07:39 | Day surgery (SDC) | payer BC, SELFPAY ==
--- OUTSIDE RECORDS SUMMARY | 2023-09-20 07:42 | XMS_ITS | CCD ---
Author Name Unknown Address [address] [facility] [address] [place] [address] Organization [facility] Care Team Providers Care Analytical Engineer Name Role Phone HOY ., DR LEE Admitting Unavailable HOY [...] Consulting Unavailable YAYA ., ZULMA Consulting Unavailable SHARONKYLE Attending Unavailable NAZZAL, MUNIER Attending Unavailable RACHELLE GARAY Attending Unavailable NAZZAL, MUNIER Referring Unavailable NAZZAL, MUNIER Attending Unavailable NAZZAL, MUNIER Referring Unavailable SHARONKYLE Attending Unavailable Allergies Allergy Classification Reported Allergen(s) Allergy Type Date of Onset Reaction(s) Facility (1 source) Allopurinol Drug Allergy 06-08-20 15 [facility] (1 source) Sulfamethoxazole / Trimethoprim Drug Allergy 06-08-20 [facility] (1 source) Sulfamethoxazole / Trimethoprim; Translations: [SULFAMETHOXAZOLE-TR IMETHOPRIM] Drug Allergy 07-29-19 [facility] Repository (1 source) TETANUS AND DIPHTHER. TOX (PF); Translations: [TETANUS AND DIPHTHER. TOX (PF)] Propensity to adverse reactions to drug (disorder) 07-29-19 [facility] Repository Problems Active Problems Problem Classification Problem Date Documented Da te Episodic/Chronic Disorders of lipid metabolism (2 sources) Mixed hyperlipidemia; Translations: [Mixed hyperlipidemia] Onset: 03-19-2023 Chronic Essential hypertension (3 sources) Essential (primary) hypertension; Translations: [ESSENTIAL PRIMARY HYPERTENSION] Onset: 06-26-2022 Chronic Unclassified (4 sources) CONTACT W/AND (SUSP) EXPOS COVID-19; Translations: [CONTACT W/AND (SUSP) EXPOS COVID-19] Onset: 06-26-2022 Unclassified (1 source) COUGH, UNSPECIFIED; Translations: [COUGH, UNSPECIFIED] Onset: 07-06-2022 Past or Other Problems Problem Classification Problem Date Documented Date Episodic/Chronic Cardiac dysrhythmias (2 sources) Palpitations; Translations: [Palpitations] Onset: 10-21-2022 Episodic Nonspecific chest pain (6 sources) Chest pain, unspecified; Translations: [Other chest pain] Onset: 07-13-2022 Episodic Other aftercare (1 source) custodial (current) use of aspirin; Translations: [LONG-TERM CURRENT USE OF ASPIRIN] Onset: 06-26-2022 Episodic Other connective tissue disease (2 sources) Other specified soft tissue disorders; Translations: [Other specified soft tissue disorders] Onset: 05-04-2023 Episodic Other diseases of veins and lymphatics [...] Test Name Value Interpretation Reference Range Facility 36on 09-07-2023 36 Left voicemail with callback number to speak with patient regarding CTA that was ordered in April by Dr. Leach. [facility] 29on 07-21-2023 29 Addended by: KYLE HERRERA on: 07/21/2023 10:25 AM Modules accepted: Orders [facility] Office Visiton 07-21-2023 Follow-up visit [id number] Brooke Dior 1975 Count Includes [facility] Provider Department Center 07/21/2023 120-KYLE HERRERA [facility] Family History Problem Relation Age of Onset Heart failure Mother Coronary artery disease Mother Other Mother Other Mother Valvular heart disease Mother Coronary artery disease Mother's Sister Coronary artery disease Mother's Brother Coronary artery disease Maternal Grandfather Family Status - Relation Status Age at Mother Mother's Sister Mother's Brother Maternal Grandfather Level of Service:87860 ME OFFICE/OUTPATIENT ESTABLISHED LOW MDM 20 MIN [facility] Clinical Supporton Clinical Support [id number] Brooke Dior 1975 Count Includes [facility] Provider Department Center 05/04/2023 [id number]-GLV ULTRASOUND ROOM GLV [facility] [place] Family History Problem Relation Age of Onset Heart failure Mother Coronary artery disease Mother Other Mother Other Mother Valvular heart disease Mother Coronary artery disease Mother's Sister Coronary artery disease Mother's Brother Coronary artery disease Maternal Grandfather Family Status - Relation Status Age at Mother Mother's Sister Mother's Brother Maternal Grandfather [facility] Follow-Upon 05-04-2023 Follow-Up [id number] Brooke Dior 1975 Count Includes [facility] Provider Department Center 05/04/2023 DMITRI ENCARNACION [facility] Family History Problem Relation Age of Onset Heart failure Mother Coronary artery disease Mother Other Mother Other Mother Valvular heart disease Mother Coronary artery disease Mother's Sister Coronary artery disease Mother's Brother Coronary artery disease Maternal Grandfather Family Status - Relation Status Age at Mother Mother's Sister Mother's Brother Maternal Grandfather Level of Service:98079 ME OFFICE/OUTPATIENT ESTABLISHED LOW MDM 20-29 MIN Reason for Visit and Comments: Follow-up [634373] [facility] 36on 04-07-2023 36 Please see bps [facility] 36 142/81, 145/85, 142/79, 139/83, 141/86, 131/85, 141/93, 140/79, 141/85, 139/96, 128/87 [facility] Orders Onlyon 04-07-2023 Orders Only [id number] Brooke Dior 1975 F Date Provider Department Center 04/07/2023 KYLE BUSTILLOS [facility] Family History Problem Relation Age of Onset Heart failure Mother Coronary artery disease Mother Other Mother Other Mother Valvular heart disease Mother Coronary artery disease Mother's Sister Coronary artery disease Mother's Brother Coronary artery disease Maternal Grandfather Family Status - Relation Status Age at Mother Mother's Sister Mother's Brother Maternal Grandfather Normal [facility] 36on 04-05-2023 36 Lm 04/05 [facility] Office Visiton 03-23-2023 Follow-up visit [id number] Brooke Dior 1975 F Date Provider Department Center 03/23/2023 DMITRI ENCARNACION GLV [facility] Family History Problem Relation Age of Onset Heart failure Mother Coronary artery disease Mother Other Mother Other Mother Valvular heart disease Mother Coronary artery disease Mother's Sister Coronary artery disease Mother's Brother Coronary artery disease Maternal Grandfather Family Status - Relation Status Age at Mother Mother's Sister Mother's Brother Maternal Grandfather Level of Service:[id number] ME OFFICE/OUTPATIENT NEW LOW MDM 30-44 MINUTES Normal [facility] Office Visiton 03-19-2023 Follow-up visit [id number] Brooke Dior 1975 Date Provider Department Center 03/19/2023 KYLE BUSTILLOS [facility] Family History Problem Relation Age of Onset Heart failure Mother Coronary artery disease Mother Other Mother Other Mother Valvular heart disease Mother Coronary artery disease Mother's Sister Coronary artery disease Mother's Brother Coronary artery disease Maternal Grandfather Family Status - Relation Status Age at Mother Mother's Sister Mother's Brother Maternal Grandfather Level of Service:83701 ME OFFICE/OUTPATIENT ESTABLISHED MOD MDM 30-39 MIN Normal [facility] Office Visiton 10-21-2022 Follow-up visit [id number] BarbyBrooke Sarbjit 1975 F Date Provider Department Center 10/21/2022 3848-RACHELLE GARAY [facility] Family History Problem Relation Age of Onset Heart failure Mother Coronary artery disease Mother Other Mother Other Mother Valvular heart disease Mother Coronary artery disease Mother's Sister Coronary artery disease Mother's Brother Coronary artery disease Maternal Grandfather Family Status - Relation Status Age at Mother Mother's Sister Mother's Brother Maternal Grandfather Level of Service:61376 ME OFFICE/OUTPATIENT ESTABLISHED LOW MDM 20-29 MIN Reason for Visit and Comments: Follow-up [[id number]] - Go over test results Normal [facility] NM STRESS/REST MULTIon 07-09 NM STRESS/REST MULTI Patient: BROOKE DIOR. Exam Date: 07/09/2022 : 1975 Gender:F Ordering : DR JESUS STAPLETON . Admission #: [id number] Family : Order #: [id number] CLICK HERE TO VIEW EXAM RADIOLOGY REPORT [...] M.D. on 07/13/2022 at 15:43 Normal [facility] Covid-19 PCR ([facility])on SARS-CoV-2 (COVID-19) RNA BETZY+probe Ql (Unsp spec) Not detected Normal NOT DETECTED [facility] Comment on above: Result Comment: This test is not yet approved or cleared by the [place] FDA. When there are no FDA-approved or cleared tests available, and other criteria are met, FDA can make tests available under an emergency access mechanism called an Emergency Use Authorization (EUA). The EUA for this test is supported by the [place] of Health and Human Service's (HHS's) declaration [...] consistent with SARS-CoV-2. Performed By: #### C VDTB #### [facility] [address] [place] [address] Dr. Terrance Hernandez INFLUENZA A AND B AGon 07-02 INFLUBNEG SEE BELOW Normal [facility] Comment on above: Result Comment: Nega tive for Flu B protein antigen. Infection due to Flu B cannot be ruled out. Flu B antigen in the sample may be below the detection limit of the test. Performed By: #### B WAREHOUSE FORKLIFT OPERATOR, CMP, HSTROPN #### [facility] [address] [place] [address] Dr. Terrance Hernandez INFLUENZA A AG Positive Abnormal NEGATIVE SEE COMMENT [facility] Comment on above: Performed By: #### B WAREHOUSE FORKLIFT OPERATOR, CMP, HSTROPN #### [facility] [address] [place] [address] Dr. Terrance Hernandez INFLUENZA B AG Negative Normal NEGATIVE SEE COMMENT [facility] Comment on above: Performed By: #### B WAREHOUSE FORKLIFT OPERATOR, CMP, HSTROPN #### [facility] [address] [place] [address] Dr. Terrance Hernandez INFLUPOSH SEE BELOW Normal [facility] Comment on above: Result Comment: NOTE : Live attenuated influenzae vaccine viruses can cause a positive result for a rapid influenza diagnostic test if administered up to 7 days prior to rapid testing. Performed By: #### B WAREHOUSE FORKLIFT OPERATOR, CMP, HSTROPN #### [facility] [address] [place] [address] Dr. Terrance Hernandez INTERNAL CONTROLS Within Normal Limits Normal Wi thin Normal Limits [facility] Comment on above: Performed By: #### B WAREHOUSE FORKLIFT OPERATOR, CMP, HSTROPN #### [facility] [address] [place] [address] Dr. Terrance Hernandez CBC AUTO DIFFon 06-19-2022 BASO # 0.1 103/ul Normal 0.0-0.1 [facility] Comment on above: Performed By: #### C BC #### [facility] [address] [place] [address] Dr. Terrance Hernandez Basophils/100 WBC (Bld) 0.8 % Normal 0.2-2.0 [facility] Comment on above: Performed By: #### C BC #### [facility] [address] [place] [address] Dr. Terrance Hernandez EO # 0.1 103/ul Normal 0.0-0.7 [facility] Comment on above: Performed By: #### C BC #### [facility] [address] [place] [address] Dr. Terrance Hernandez Eosinophils/100 WBC (Bld) 1.4 % Normal 0.9-7.0 [facility] Comment on above: Performed By: #### C BC #### [facility] [address] [place] [address] Dr. Terrance Hernandez Erythrocyte distribution width (RBC) [Ratio] 13.2 % Normal 11.0-15.0 [facility] Comment on above: Performed By: #### C BC #### [facility] [address] [place] [address] Dr. Terrance Hernandez Hematocrit (Bld) [Volume fraction] 41.2 % Normal 36.0-48.0 [facility] Comment on above: Performed By: #### C BC #### [facility] [address] [place] [address] Dr. Terrance Hernandez Hemoglobin (Bld) [Mass/Vol] 13.7 g/dL Normal 12.0-16.0 [facility] Comment on above: Performed By: #### C BC #### [facility] [address] [place] [address] Dr. Terrance Hernandez IG # 0.01 10e3/ul Normal 0.00-0.03 [facility] Comment on above: Performed By: #### C BC #### [facility] [address] [place] [address] Dr. Terrance Hernandez IG % 0.2 % Normal 0.0-0.5 [facility] Comment on above: Performed By: #### C BC #### [facility] [address] [place] [address] Dr. Terrance Hernandez LYMPH # 2.0 103/ul Normal 1.2-3.8 [facility] Comment on above: Performed By: #### C BC #### [facility] [address] [place] [address] Dr. Terrance Hernandez Lymphocytes/100 WBC (Bld) 29.4 % Normal 20.5-60.0 [facility] Comment on above: Performed By: #### C BC #### [facility] [address] [place] [address] Dr. Terrance Hernandez MANUAL DIFF REQ NO Normal [facility] Comment on above: Performed By: #### C BC #### [facility] [address] [place] [address] Dr. Terrance Hernandez MCH (RBC) [Entitic mass] 29.2 pg Normal 26.7-34.0 [facility] Comment on above: Performed By: #### C BC #### [facility] [address] [address] [address] Terrance Hernandez MCHC (RBC) [Mass/Vol] 33.3 g/dL Normal 29.9-35.2 [facility] Comment on above: Performed By: #### C BC #### [facility] [address] [address] [address] Terrance Hernandez MCV (RBC) [Entitic vol] 87.8 fL Normal 81.0-99.0 [facility] Comment on above: Performed By: #### C BC #### [facility] [address] [place] [address] Dr. Terrance Hernandez MONO # 0.5 103/ul Normal 0.3-0.8 [facility] Comment on above: Performed By: #### C BC #### [facility] [address] [place] [address] Dr. Terrance Hernandez Monocytes/100 WBC (Bld) 8.0 % Normal 1.7-12.0 [facility] Comment on above: Performed By: #### C BC #### [facility] [address] [place] [address] Dr. Terrance Hernandez NEUT # 4.0 103/ul Normal 1.4-6.5 [facility] Comment on above: Performed By: #### C BC #### [facility] [address] [place] [address] Dr. Terrance Hernandez Neutrophils/100 WBC (Bld) 60.2 % Normal 43.0-75.0 [facility] Comment on above: Performed By: #### C BC #### [facility] [address] [address] [address] Terrance Hernandez Platelet mean volume (Bld) [Entitic vol] 9.3 fL Critically low 9.5-13.5 [facility] Comment on above: Performed By: #### C BC #### [facility] [address] [address] [address] Terrance Hernandez PLT 250 103/ul Normal 150-450 [facility] Comment on above: Performed By: #### C BC #### [facility] [address], [place] [address] Dr. Terrance Hernandez RBC 4.69 106/ul Normal 4.20-5.40 [facility] Comment on above: Performed By: #### C BC #### [facility] [address], [place] [address] Dr. Terrance Hernandez WBC 6.6 103/ul Normal 4.0-11.0 [facility] Comment on above: Performed By: #### C BC #### [facility] [address], [place] [address] Dr. Terrance Hernandez ECHOCARDIO M/2D COMPLETEon 1 08-19-2021 ECHOCARDIO M/2D COMPLETE Patient: BROOKE DIOR Exam Date: 06/19/2022 : 1975 Gender:F Ordering : DR YISEL OLMEDO . Admission #: [id number] Family : DR JESUS STAPLETON . Order #: [id number] CLICK HERE TO VIEW EXAM ECHOCARDIOGRAM REPORT [...] Bell M.D. on 06/24/2022 at 13:01 Normal [facility] PROF CHEM 8 (BAS METB)on Anion gap [Moles/Vol] 9.9 mmol/L Normal [facility] Comment on above: Performed By: #### B WAREHOUSE FORKLIFT OPERATOR, CMP, HSTROPN #### [facility] [address] [place] [address] Dr. Terrance Hernandez Calcium [Mass/Vol] 8.8 mg/dL Normal 8.5-10.1 [facility] Comment on above: Performed By: #### B WAREHOUSE FORKLIFT OPERATOR, CMP, HSTROPN #### [facility] [address] [place] [address] Dr. Terrance Hernandez Chloride [Moles/Vol] 105 mmol/L Normal 98-107 [facility] Comment on above: Performed By: #### B WAREHOUSE FORKLIFT OPERATOR, CMP, HSTROPN #### [facility] [address] [place] [address] Dr. Terrance Hernandez CO2 [Moles/Vol] 28.6 mmol/L Normal 21.0-32.0 [facility] Comment on above: Performed By: #### B WAREHOUSE FORKLIFT OPERATOR, CMP, HSTROPN #### [facility] [address] [place] [address] Dr. Terrance Hernandez Creatinine [Mass/Vol] 0.59 mg/dL Normal 0.55-1.02 [facility] Comment on above: Performed By: #### B WAREHOUSE FORKLIFT OPERATOR, CMP, HSTROPN #### [facility] [address] [place] [address] Dr. Terrance Hernandez EGFR-AF MOROCCAN >60 Normal >=60 [facility] Comment on above: Performed By: #### B WAREHOUSE FORKLIFT OPERATOR, CMP, HSTROPN #### [facility] [address] [address] [address] Terrance Hernandez EGFR-NON AF MOROCCAN >60 Normal >=60 [facility] Comment on above: Performed By: #### B WAREHOUSE FORKLIFT OPERATOR, CMP, HSTROPN #### [facility] [address] [address] [address] Terrance Hernandez Glucose [Mass/Vol] 99 mg/dL Normal 74-106 [facility] Comment on above: Performed By: #### B WAREHOUSE FORKLIFT OPERATOR, CMP, HSTROPN #### [facility] [address] [address] [address] Terrance Hernandez Potassium [Moles/Vol] 3.5 mmol/L Normal 3.5-5.1 [facility] Comment on above: Performed By: #### B WAREHOUSE FORKLIFT OPERATOR, CMP, HSTROPN #### [facility] [address] [address] [address] Terrance Hernandez Sodium [Moles/Vol] 140 mmol/L Normal 136-145 [facility] Comment on above: Performed By: #### B WAREHOUSE FORKLIFT OPERATOR, CMP, HSTROPN #### [facility] [address] [address] [address] Terrance Hernandez Urea nitrogen [Mass/Vol] 13.0 mg/dL Normal 7.0-18.0 [facility] Comment on above: Performed By: #### B WAREHOUSE FORKLIFT OPERATOR, CMP, HSTROPN #### [facility] [address] [address] [address] Terrance Hernandez Urea nitrogen/Creatinine [Mass ratio] 22.0 mg/mg Normal [facility] Comment on above: Performed By: #### B WAREHOUSE FORKLIFT OPERATOR, CMP, HSTROPN #### [facility] [address] [address] [address] Terrance Hernandez TROPONIN, HIGH SENSITIVITYon 06-19-2022 HSTROP 104.8 pg/mL Critically high 4.0-51.3 [facility] Comment on above: Result Comment: CUT- OFF POINTS HAVE BEEN ESTABLISHED BASED ON THE FOURTH UNIVERSAL DEFINITIONS OF MYOCARDIAL INFARCTION. THE UPPER REFERENCE LIMIT (URL) OF TROPONIN, DEFINED THE 99TH PERCENTILE OF cTnI DISTRIBUTION IN A REFERENCE POPULATION, HAS BEEN CONFIRMED THE DECISION THRESHOLD FOR SD DIAGNOSIS. Performed By: #### B WAREHOUSE FORKLIFT OPERATOR, CMP, HSTROPN #### [facility] [address] [place] [address] Dr. Terrance Hernandez BNPon 06-18-2022 Natriuretic peptide B (Bld) [Mass/Vol] 59.0 pg/mL Normal <=450.0 [facility] Comment on above: Performed By: #### B WAREHOUSE FORKLIFT OPERATOR, CMP, HSTROPN #### [facility] [address] [place] [address] Dr. Terrance Hernandez CBC AUTO DIFFon 06-18-2022 BASO # 0.0 103/ul Normal 0.0-0.1 [facility] Comment on above: Performed By: #### C BC #### [facility] [address] [place] [address] Dr. Terrance Hernandez Basophils/100 WBC (Bld) 0.5 % Normal 0.2-2.0 [facility] Comment on above: Performed By: #### C BC #### [facility] [address] [place] [address] Dr. Terrance Hernandez EO # 0.1 103/ul Normal 0.0-0.7 [facility] Comment on above: Performed By: #### C BC #### [facility] [address] [place] [address] Dr. Terrance Hernandez Eosinophils/100 WBC (Bld) 1.3 % Normal 0.9-7.0 [facility] Comment on above: Performed By: #### C BC #### [facility] [address] [place] [address] Dr. Terrance Hernandez Erythrocyte distribution width (RBC) [Ratio] 13.2 % Normal 11.0-15.0 [facility] Comment on above: Performed By: #### C BC #### [facility] [address] [place] [address] Dr. Terrance Hernandez Hematocrit (Bld) [Volume fraction] 40.7 % Normal 36.0-48.0 [facility] Comment on above: Performed By: #### C BC #### [facility] [address] [place] [address] Dr. Terrance Hernandez Hemoglobin (Bld) [Mass/Vol] 13.6 g/dL Normal 12.0-16.0 [facility] Comment on above: Performed By: #### C BC #### [facility] [address] [place] [address] Dr. Terrance Hernandez IG # 0.01 10e3/ul Normal 0.00-0.03 [facility] Comment on above: Performed By: #### C BC #### [facility] [address] [place] [address] Dr. Terrance Hernandez IG % 0.2 % Normal 0.0-0.5 [facility] Comment on above: Performed By: #### C BC #### [facility] [address] [place] [address] Dr. Terrance Hernandez LYMPH # 1.7 103/ul Normal 1.2-3.8 [facility] Comment on above: Performed By: #### C BC #### [facility] [address] [place] [address] Dr. Terrance Hernandez Lymphocytes/100 WBC (Bld) 25.8 % Normal 20.5-60.0 [facility] Comment on above: Performed By: #### C BC #### [facility] [address] [place] [address] Dr. Terrance Hernandez MANUAL DIFF REQ NO Normal [facility] Comment on above: Performed By: #### C BC #### [facility] [address] [place] [address] Dr. Terrance Hernandez MCH (RBC) [Entitic mass] 29.2 pg Normal 26.7-34.0 [facility] Comment on above: Performed By: #### C BC #### [facility] [address] [place] [address] Dr. Terrance Hernandez MCHC (RBC) [Mass/Vol] 33.4 g/dL Normal 29.9-35.2 [facility] Comment on above: Performed By: #### C BC #### [facility] [address] [place] [address] Dr. Terrance Hernandez MCV (RBC) [Entitic vol] 87.5 fL Normal 81.0-99.0 [facility] Comment on above: Performed By: #### C BC #### [facility] [address] [place] [address] Dr. Terrance Hernandez MONO # 0.6 103/ul Normal 0.3-0.8 [facility] Comment on above: Performed By: #### C BC #### [facility] [address] [place] [address] Dr. Terrance Hernandez Monocytes/100 WBC (Bld) 8.8 % Normal 1.7-12.0 [facility] Comment on above: Performed By: #### C BC #### [facility] [address] [place] [address] Dr. Terrance Hernandez NEUT # 4.1 103/ul Normal 1.4-6.5 [facility] Comment on above: Performed By: #### C BC #### [facility] [address] [place] [address] Dr. Terrance Hernandez Neutrophils/100 WBC (Bld) 63.4 % Normal 43.0-75.0 [facility] Comment on above: Performed By: #### C BC #### [facility] [address] [place] [address] Dr. Terrance Hernandez Platelet mean volume (Bld) [Entitic vol] 9.3 fL Critically low 9.5-13.5 [facility] Comment on above: Performed By: #### C BC #### [facility] [address] [place] [address] Dr. Terrance Hernandez PLT 255 103/ul Normal 150-450 [facility] Comment on above: Performed By: #### C BC #### [facility] [address] [place] [address] Dr. Terrance Hernandez RBC 4.65 106/ul Normal 4.20-5.40 [facility] Comment on above: Performed By: #### C BC #### [facility] [address] [place] [address] Dr. Terrance Hernandez WBC 6.4 103/ul Normal 4.0-11.0 [facility] Comment on above: Performed By: #### C BC #### [facility] [address] [address] [address] Terrance Hernandez Covid-19 PCR ([facility])on 05-27 SARS-CoV-2 (COVID-19) RNA BETZY+probe Ql (Unsp spec) Not detected Normal NOT DETECTED [facility] Comment on above: Result Comment: When diagnostic [...] for this test is supported by the [place] of Health and Human Service's declaration that [...] longer be used). Performed By: #### B WAREHOUSE FORKLIFT OPERATOR, CMP, HSTROPN #### [facility] [address] [address] [address] Terrance Hernandez D-DIMERon 06-18-2022 D-DIMER 0.48 mg/L FEU Normal <=0.59 [facility] Comment on above: Performed By: #### B WAREHOUSE FORKLIFT OPERATOR, CMP, HSTROPN #### [facility] [address] [address] [address] Terrance Hernandez D-DIMER COMMENTS SEE BELOW Normal [facility] Comment on above: Result Comment: Incr [...] and generalized hospitalization. Performed By: #### B WAREHOUSE FORKLIFT OPERATOR, CMP, HSTROPN #### [facility] [address] [place] [address] Dr. Terrance Hernandez DRUG SCREEN RAPID (URINE)on 06-18-2022 AMP Negative Normal NEGATIVE [facility] Comment on above: Performed By: #### B WAREHOUSE FORKLIFT OPERATOR, CMP, HSTROPN #### [facility] [address] [place] [address] Dr. Terrance Hernandez BAR Negative Normal NEGATIVE [facility] Comment on above: Performed By: #### B WAREHOUSE FORKLIFT OPERATOR, CMP, HSTROPN #### [facility] [address] [place] [address] Dr. Terrance Hernandez BUP Negative Normal NEGATIVE [facility] Comment on above: Performed By: #### B WAREHOUSE FORKLIFT OPERATOR, CMP, HSTROPN #### [facility] [address] [place] [address] Dr. Terrance Hernandez BZO Negative Normal NEGATIVE [facility] Comment on above: Performed By: #### B WAREHOUSE FORKLIFT OPERATOR, CMP, HSTROPN #### [facility] [address] [place] [address] Dr. Terarnce Hernandez MARGOTH Negative Normal NEGATIVE [facility] Comment on above: Performed By: #### B WAREHOUSE FORKLIFT OPERATOR, CMP, HSTROPN #### [facility] [address] [place] [address] Dr. Terrance Hernandez CUT-OFFS SEE BELOW Normal [facility] Comment on above: Result Comment: AMP (Amphetamine): 500ng/mL, BAR (Barbituates): 200 ng/mL, BZO (Benzodiazepines): 150 ng/mL, BUP (Buprenorphine): 10 ng/mL, MARGOTH (Cocaine): 150 ng/mL, mAMP (Methamphetamine): 500 ng/mL, MTD (Methadone): 200 ng/mL, OPI (Opiates): 100 ng/mL, OXY (Oxycodone): 100 ng/mL, PCP (Phencyclidine): 25 ng/mL, PPX (Propoxyphene): 300 ng/mL, THC (Cannabinoids): 50 ng/mL, TCA (Trycyclic Antidepressants): 300 ng/mL Performed By: #### B WAREHOUSE FORKLIFT OPERATOR, CMP, HSTROPN #### [facility] [address] [address] [address] Terrance Hernandez DRUG CUT HEADER DRUG CLASS TEST SYSTEM CUT-OFF CONCENTRATIONS ARE FOLLOWS: Normal [facility] Comment on above: Performed By: #### B WAREHOUSE FORKLIFT OPERATOR, CMP, HSTROPN #### [facility] [address] [address] [address] Terrance Hernandez mAMP Negative Normal NEGATIVE [facility] Comment on above: Performed By: #### B WAREHOUSE FORKLIFT OPERATOR, CMP, HSTROPN #### [facility] [address] [place] [address] Dr. Terrance Hernandez MTD Negative Normal NEGATIVE [facility] Comment on above: Performed By: #### B WAREHOUSE FORKLIFT OPERATOR, CMP, HSTROPN #### [facility] [address] [place] [address] Dr. Terrance Hernandez OPI Negative Normal NEGATIVE [facility] Comment on above: Performed By: #### B WAREHOUSE FORKLIFT OPERATOR, CMP, HSTROPN #### [facility] [address] [place] [address] Dr. Terrance Hernandez OXY Negative Normal NEGATIVE [facility] Comment on above: Performed By: #### B WAREHOUSE FORKLIFT OPERATOR, CMP, HSTROPN #### [facility] [address] [place] [address] Dr. Terrance Hernandez PCP Negative Normal NEGATIVE [facility] Comment on above: Performed By: #### B WAREHOUSE FORKLIFT OPERATOR, CMP, HSTROPN #### [facility] [address] [place] [address] Dr. Terrance Hernandez PPX Negative Normal NEGATIVE [facility] Comment on above: Performed By: #### B WAREHOUSE FORKLIFT OPERATOR, CMP, HSTROPN #### [facility] [address] [place] [address] Dr. Terrance Hernandez TCA Negative Normal NEGATIVE [facility] Comment on above: Performed By: #### B WAREHOUSE FORKLIFT OPERATOR, CMP, HSTROPN #### [facility] [address] [address] [address] Terrance Hernandez THC Negative Normal NEGATIVE [facility] Comment on above: Performed By: #### B WAREHOUSE FORKLIFT OPERATOR, CMP, HSTROPN #### [facility] [address] [address] [address] Terrance Hernandez PROF 14(COMP METB)on 022 Albumin [Mass/Vol] 3.6 g/dL Normal 3.4-5.0 [facility] Comment on above: Performed By: #### B WAREHOUSE FORKLIFT OPERATOR, CMP, HSTROPN #### [facility] [address] [address] [address] Terrance Hernandez Albumin/Globulin [Mass ratio] 1.1 {ratio} Normal [facility] Comment on above: Performed By: #### B WAREHOUSE FORKLIFT OPERATOR, CMP, HSTROPN #### [facility] [address] [place] [address] Dr. Terrance Hernandez ALP [Catalytic activity/Vol] 89 U/L Normal 46-116 [facility] Comment on above: Performed By: #### B WAREHOUSE FORKLIFT OPERATOR, CMP, HSTROPN #### [facility] [address] [place] [address] Dr. Terrance Hernandez ALT [Catalytic activity/Vol] 44 U/L Normal 14-59 [facility] Comment on above: Performed By: #### B WAREHOUSE FORKLIFT OPERATOR, CMP, HSTROPN #### [facility] [address] [place] [address] Dr. Terrance Hernandez Anion gap [Moles/Vol] 8.5 mmol/L Normal [facility] Comment on above: Performed By: #### B WAREHOUSE FORKLIFT OPERATOR, CMP, HSTROPN #### [facility] [address] [place] [address] Dr. Terrance Hernandez AST [Catalytic activity/Vol] 21 U/L Normal 15-37 [facility] Comment on above: Performed By: #### B WAREHOUSE FORKLIFT OPERATOR, CMP, HSTROPN #### [facility] [address] [place] [address] Dr. Terrance Hernandez Bilirubin [Mass/Vol] 1.0 mg/dL Normal 0.2-1.0 [facility] Comment on above: Performed By: #### B WAREHOUSE FORKLIFT OPERATOR, CMP, HSTROPN #### [facility] [address] [address] [address] Terrance Hernandez Calcium [Mass/Vol] 8.7 mg/dL Normal 8.5-10.1 [facility] Comment on above: Performed By: #### B WAREHOUSE FORKLIFT OPERATOR, CMP, HSTROPN #### [facility] [address] [place] [address] Dr. Terrance Hernandez Chloride [Moles/Vol] 106 mmol/L Normal 98-107 [facility] Comment on above: Performed By: #### B WAREHOUSE FORKLIFT OPERATOR, CMP, HSTROPN #### [facility] [address] [place] [address] Dr. Terrance Hernandez CO2 [Moles/Vol] 29.0 mmol/L Normal 21.0-32.0 [facility] Comment on above: Performed By: #### B WAREHOUSE FORKLIFT OPERATOR, CMP, HSTROPN #### [facility] [address] [place] [address] Dr. Terrance Hernandez Creatinine [Mass/Vol] 0.63 mg/dL Normal 0.55-1.02 [facility] Comment on above: Performed By: #### B WAREHOUSE FORKLIFT OPERATOR, CMP, HSTROPN #### [facility] [address] [place] [address] Dr. Terrance Hernandez EGFR-AF MOROCCAN >60 Normal >=60 [facility] Comment on above: Performed By: #### B WAREHOUSE FORKLIFT OPERATOR, CMP, HSTROPN #### [facility] [address] [place] [address] Dr. Terrance Hernandez EGFR-NON AF MOROCCAN >60 Normal >=60 [facility] Comment on above: Performed By: #### B WAREHOUSE FORKLIFT OPERATOR, CMP, HSTROPN #### [facility] [address] [place] [address] Dr. Terrance Hernandez Globulin (S) [Mass/Vol] 3.4 g/dL Normal [facility] Comment on above: Performed By: #### B WAREHOUSE FORKLIFT OPERATOR, CMP, HSTROPN #### [facility] [address] [place], [place] [id number] Dr. Terrance Hernandez Glucose [Mass/Vol] 102 mg/dL Normal 74-106 [facility] Comment on above: Performed By: #### B WAREHOUSE FORKLIFT OPERATOR, CMP, HSTROPN #### [facility] [address] [place] [address] Dr. Terrance Hernandez Potassium [Moles/Vol] 3.5 mmol/L Normal 3.5-5.1 [facility] Comment on above: Performed By: #### B WAREHOUSE FORKLIFT OPERATOR, CMP, HSTROPN #### [facility] [address] [place] [address] Dr. Terrance Hernandez Protein [Mass/Vol] 7.0 g/dL Normal 6.4-8.2 [facility] Comment on above: Performed By: #### B WAREHOUSE FORKLIFT OPERATOR, CMP, HSTROPN #### [facility] [address] [place] [address] Dr. Terrance Hernandez Sodium [Moles/Vol] 140 mmol/L Normal 136-145 [facility] Comment on above: Performed By: #### B WAREHOUSE FORKLIFT OPERATOR, CMP, HSTROPN #### [facility] [address] [place] [address] Dr. eTrrance Hernandez Urea nitrogen [Mass/Vol] 11.0 mg/dL Normal 7.0-18.0 [facility] Comment on above: Performed By: #### B WAREHOUSE FORKLIFT OPERATOR, CMP, HSTROPN #### [facility] [address] [place] [address] Dr. Terrance Hernandez Urea nitrogen/Creatinine [Mass ratio] 17.5 mg/mg Normal [facility] Comment on above: Performed By: #### B WAREHOUSE FORKLIFT OPERATOR, CMP, HSTROPN #### [facility] [address] [place] [address] Dr. Terrance Hernandez TROPONIN, HIGH SENSITIVITYon 06-18-2022 HSTROP 112.7 pg/mL Critically high 4.0-51.3 [facility] Comment on above: Result Comment: CUT- OFF POINTS HAVE BEEN ESTABLISHED BASED ON THE FOURTH UNIVERSAL DEFINITIONS OF MYOCARDIAL INFARCTION. THE UPPER REFERENCE LIMIT (URL) OF TROPONIN, DEFINED THE 99TH PERCENTILE OF cTnI DISTRIBUTION IN A REFERENCE POPULATION, HAS BEEN CONFIRMED THE DECISION THRESHOLD FOR SD DIAGNOSIS. Performed By: #### H STROPN #### [facility] [address] [address] [address] Terrance Hernandez HSTROP 111.6 pg/mL Critically high 4.0-51.3 [facility] Comment on above: Result Comment: CUT- OFF POINTS HAVE BEEN ESTABLISHED BASED ON THE FOURTH UNIVERSAL DEFINITIONS OF MYOCARDIAL INFARCTION. THE UPPER REFERENCE LIMIT (URL) OF TROPONIN, DEFINED THE 99TH PERCENTILE OF cTnI DISTRIBUTION IN A REFERENCE POPULATION, HAS BEEN CONFIRMED THE DECISION THRESHOLD FOR SD DIAGNOSIS. Performed By: #### H STROPN #### [facility] [address] [address] [address] Terrance Hernandez HSTROP 110.0 pg/mL Critically high 4.0-51.3 [facility] Comment on above: Result Comment: CUT- OFF POINTS HAVE BEEN ESTABLISHED BASED ON THE FOURTH UNIVERSAL DEFINITIONS OF MYOCARDIAL INFARCTION. THE UPPER REFERENCE LIMIT (URL) OF TROPONIN, DEFINED THE 99TH PERCENTILE OF cTnI DISTRIBUTION IN A REFERENCE POPULATION, HAS BEEN CONFIRMED THE DECISION THRESHOLD FOR SD DIAGNOSIS. Performed By: #### B WAREHOUSE FORKLIFT OPERATOR, CMP, HSTROPN #### [facility] [address] [address] [address] Terrance Hernandez HSTROP 107.0 pg/mL Critically high 4.0-51.3 [facility] Comment on above: Result Comment: CUT- OFF POINTS HAVE BEEN ESTABLISHED BASED ON THE FOURTH UNIVERSAL DEFINITIONS OF MYOCARDIAL INFARCTION. THE UPPER REFERENCE LIMIT (URL) OF TROPONIN, DEFINED THE 99TH PERCENTILE OF cTnI DISTRIBUTION IN A REFERENCE POPULATION, HAS BEEN CONFIRMED THE DECISION THRESHOLD FOR SD DIAGNOSIS. Performed By: #### H STROPN #### [facility] [address] [address] [address] Terrance Hernandez HSTROP 102.0 pg/mL Critically high 4.0-51.3 [facility] Comment on above: Result Comment: CUT- OFF POINTS HAVE BEEN ESTABLISHED BASED ON THE FOURTH UNIVERSAL DEFINITIONS OF MYOCARDIAL INFARCTION. THE UPPER REFERENCE LIMIT (URL) OF TROPONIN, DEFINED THE 99TH PERCENTILE OF cTnI DISTRIBUTION IN A REFERENCE POPULATION, HAS BEEN CONFIRMED THE DECISION THRESHOLD FOR SD DIAGNOSIS. Performed By: #### B WAREHOUSE FORKLIFT OPERATOR, CMP, HSTROPN #### [facility] [address] [address] [address] Terrance Hernandez TSHon 06-18-2022 TSH 1.399 uIU/mL Normal 0.358-3.740 [facility] Comment on above: Performed By: #### T SH #### [facility] [address] [id number] Terrance Hernandez XR CHEST 2 Von [...] by: GLO MCCOY Date: 2022-06-18 10:59 Normal [facility] Physician Referralon 021 Physician Referral [phone] [id number] Normal [facility] Encounters Encounter Date Encounter Type Care Provider Facility Start: 07-21-2023 End: 07-21-2023 ambulatory [facility] Start: 05-04-2023 ambulatory [facility] Start: 03-23-2023 ambulatory [facility] Start: 03-19-2023 End: 03-19-2023 ambulatory [facility] Start: 10-21-2022 End: 10-21-2022 ambulatory RACHELLE BARBOZAJUDSON [facility] Start: 07-13-2022 End: 07-14-[address] JESUS STAPLETON . Facility:[facility] Start: 07-09-2022 End: 07-10-[address] JESUS STAPLETON . Facility:[facility] Start: 07-02-2022 End: 07-02-[address] JESUS STAPLETON . Facility:[facility] Start: 06-18-2022 End: 06-19-[address] JESUS STAPLETON . Facility:[facility] Payers Date Payer Category Payer Unknown [id number] 1975 Unknown [id number] 1975 Unknown [id number] [id number] [id number] 1975 Unknown [id number] [id number] [id number] 1975 Unknown [id number] [id number] 1959 Private Health Insurance [id number] Clinical Notes 10-21-2022 to 07-21-2023 Note Date & Type Note Facility 07-21-2023 Note Currently resolved [facility] 07-21-2023 Note Patient here for 4 m o follow up B/L LE edema, chest pain, and hypertension. She was started on hydrochlorothiazide at last apt in Feb 2023. Metoprolol was increased to 100mg a few weeks later. She saw Dr. Leach and had vascular testing in Apr. Chest pain has resolved. Review of Systems Cardiovascular: Positive for leg swelling. All other systems reviewed and are negative. [facility] 07-21-2023 Note [facility] CARDIOLOGY PROGR ESS NOTE HPI: Brooke Dior is a 48 y.o. female here for HTN s/p starting hydrochlorothiazide Patient here for 4 mo follow up B/L LE edema, chest pain, and hypertension. She was started on hydrochlorothiazide at last apt in Feb 2023. Metoprolol was increased to 100mg a few weeks later. She saw Dr. Leach and had vascular testing in Apr. Chest pain has resolved. Denied chest pain, SOB, orthopnea. 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 Review of Systems Cardiovascular: Positive for leg [...] Bilateral lower extremity edema F/U with Dr Leach- vascular surgery Benign essential HTN Hypertension is well controlled with addition of hydrochlorothiazide Continue toprol 100 mg daily and hydrochlorothiazide. Renal function had remained stable and normal Atypical chest pain Currently resolved RTC 6 month [facility] 07-20-2023 Note Hypertension is well controlled with addition of hydrochlorothiazide Continue toprol 100 mg daily and hydrochlorothiazide. Renal function had remained stable and normal [facility] 07-20-2023 Note F/U with Dr Leach- vascular gloria [facility] 05-04-2023 Note Subjective Patient ID: Brooke Dior is a 47 y.o. female who presents for follow-up after having venous reflux ultrasound completed prior due to swelling BLE. Last seen by Dr. Leach 03/23/23. Vitals: 05/04/23 1413 BP: 129/77 Pulse: [...] past 36 hour(s)). No follow-ups on file. [facility] 04-07-2023 Note Staff reported pt's b/p [...] assess renal function and electrolyte Kyle Herrera NP Division of Cardiology, [facility]- [phone] Pager- [phone] Email- [email or web address] 03-23-2023 Note Subjective Patient ID: Brooke Dior is a 47 y.o. female who presents for new patient consult from Kyle Herrera NP at [facility] for BLE edema. HPI Patient presenting [...] Venous reflux bilateral Follow up with Dr. Leach, same day Continue compression No diagnosis found. No orders of the defined types were placed in this encounter. No results found for this or any previous visit (from the past 36 hour(s)). No follow-ups on file. [facility] 03-19-2023 Note Hypertension is unco ntrolled [...] to call office and she voiced understanding [facility] 03-19-2023 Note No [facility] of 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 She has kqyf-[id number] compression socks that most of time hurts [...] and allergic danny (more content not included)... [facility] 03-19-2023 Note Patient here for 6 [...] All other systems reviewed and are negative. [facility] 10-21-2022 Note Cardiology Clinic No te [...] She has a past medical history of COVSAMEER (08/2022). Surgical History She has a past [...] -[employer] [facility] (more content not included)... [facility] Summary Purpose Family History No Family History Records FoundNo Family History Records FoundNo Family History Records Found Advance Directives No Advanced Directives Records FoundNo Advanced Directives Records FoundNo Advanced Directives Records Found Additional Source Comments INFORMATION SOURCE (unrecogn ized section and content) DATE CREATED AUTHOR 03/09/2021 Rito [employer]an [employer] [facility] DATE CREATED AUTHOR AUTHOR'S ORGANIZ ATION 11/27/2022 [facility] DATE CREATED AUTHOR AUTHOR'S ORGANIZ ATION 09/09/2023 [facility] FOR RECORDS PERTAINING TO PATIENTS WHO ARE [...] BE BASED ON THE PRIMARY CLINICAL RECORDS. [email or web address] provides no warranty or guarantee of the accuracy or completeness of information in this document.
--- NOTE | 2023-09-20 07:43 | MM_ITS ---
Patient Name: STEPHANI GARCES MR#: [id number] : 1975 Exam Date: 09/20/2023 Ordering Doctor: DR Marcello Smith . This report includes an Addendum and supersedes previous reports for this exam. RADIOLOGY REPORT PROCEDURE: MM STEREOTACTIC LOC LT COMPARISON: MM TOMOSYNTHESIS SCREENING BI, 08/06/2023. MM DIAGNOSTIC MAMMO BI, 08/30/2023. INDICATIONS: Abnormal Diagnostic Mammogram DESCRIPTION: Following informed consent, digital stereotactic mammographic views were obtained to localize the lesion. Multiple vacuum-assisted core biopsies were obtained. Specimen images were obtained to confirm proper sampling. The location of the biopsy was then marked as indicated below. FINDINGS: RECOMMENDATIONS: SPECIMEN #, LOCATION: 6 samples, upper outer quadrant density/calcification SPECIMEN IMAGE: Targeted microcalcifications are present in multiple samples BIOPSY NEEDLE: 10 gauge Revolve(r) vacuum core biopsy needle. MARKER(S) PLACED: A single metallic marker was placed in the appropriate targeted location. MEDICATION: 2cc Buffered 1% lidocaine superficial; 6 cc 1% lidocaine with epinephrine deep. COMPLICATIONS: None. PATHOLOGY / LAB: Pending. CONCLUSION: 1. Technically successful biopsy of the breast lesion. 2. Pathology results are pending. An addendum will be added when pathology results are final. Dictated by: Chandrakant Gee MD on 09/20/2023 at 10:38 Approved by: Chandrakant Gee MD on 09/20/2023 at 10:39 ADDENDUM: The pathology report is now available and shows benign findings concordant with the imaging findings. Final diagnosis: No evidence of malignancy. Pathology report faxed to Dr. Smith. Receipt verified with Laura by telephone Dictated by: Chandrakant Gee MD on 09/29/2023 at 09:16 Approved by: Chandrakant Gee MD on 09/29/2023 at 09:17
--- NOTE | 2023-09-20 07:43 | MM_ITS ---
Patient Name: STEPHANI GARCES MR#: [id number] : 1975 Exam Date: 09/20/2023 Ordering Doctor: DR Marcello Smith . This report includes an Addendum and supersedes previous reports for this exam. RADIOLOGY REPORT PROCEDURE: MM POST BIOPSY LT COMPARISON: MM STEREOTACTIC LOC LT, 09/20/2023. INDICATIONS: Abnormal Diagnostic Mammogram BREAST COMPOSITION: Heterogeneously dense,which may obscure small masses. FINDINGS: BIOPSY MARKER: A metallic marker has been placed in the targeted location within the upper quadrant of the left breast in the region of the targeted density/calcification BREAST FINDINGS: Postprocedural subcutaneous emphysema Dictated by: Chandrakant Gee MD on 09/20/2023 at 10:39 Approved by: Chandrakant Gee MD on 09/20/2023 at 10:40 ADDENDUM: FINDINGS: DIAGNOSTIC CATEGORY 3--PROBABLY BENIGN FINDING. THE FOLLOWING FINDING(S) HAS A HIGH PROBABILITY OF A BENIGN ETIOLOGY: RECOMMENDATIONS: SHORT TERM FOLLOW-UP DIAGNOSTIC MAMMOGRAM LEFT BREAST IN 6 MONTHS. Dictated by: Chandrakant Gee MD on 09/29/2023 at 09:17 Approved by: Chandrakant Gee MD on 09/29/2023 at 09:18
[2023-09-20] MEDS: LIDOCAINE HCL 10 ML, SODIUM BICARBONATE 1 MEQ INJ (08:35)
[2023-09-20] MEDS: LIDOCAINE HCL/EPINEPHRINE 10 ML, SODIUM BICARBONATE 1 MEQ INJ (08:35)
[2023-09-20 10:02] VITALS: BP 117/64; PULSE 60; O2SAT 95
--- NOTE | 2023-09-20 10:07 | SUR.PREOP ---
09/07/23 Instructed pt on procedure, date, time, and prep. Pt made aware to hold ASA x 5 days prior to biopsy.
== END 2023-09-20 09:10 | disposition home or self-care (01) ==
LOC: MAMMO 07:39
PROVIDERS: Radiology Diagnostic Radiology; PCP Family Medicine; Visit Provider Family Medicine
DX: N60.22 Fibroadenosis of left breast (principal); D24.2 Benign neoplasm of left breast
CPT/HCPCS: 19081; 77065; 88305

== ENCOUNTER 2024-05-03 12:12 | Outpatient (OUT) | payer BC, SELFPAY ==
--- NOTE | 2024-05-03 | US_ITS ---
The [address] [address] Patient Name: STEPHANI GARCES MRN: [id number] date: 1975 Sex: F Assigned Patient Location: LAB Current Patient Location: LAB Accession/Order Number: [id number] Exam Date: 05/03/2024 12:27 Report Date: 05/03/2024 13:10 At the request of: JESUS STAPLETON Procedure: US venous doppler LE LT EXAMINATION: US venous doppler LE LT HISTORY: Edema R60.9 COMPARISON: No relevant comparison available. FINDINGS: REGION: Left lower extremity. THROMBI: None. COMPRESSIBILITY: Normal compressibility. FLOW: Normal waveform and antegrade flow between 5 and 20 cm/s. OTHER: None. US/US venous doppler LE LT IMPRESSION: 1. No deep vein thrombus within the left lower extremity. Electronically authenticated by: DEYSI BENDER Date: 05/03/2024 13:10
--- OUTSIDE RECORDS SUMMARY | 2024-05-03 12:25 | XMS_ITS | CCD ---
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 Name Role Phone PIETER ., DR LEE Admitting Unavailable HOY ., [...] YAYA ., ZULMA Consulting Unavailable NAZZAL, MUNIER Attending Unavailable NAZZAL, MUNIER Referring Unavailable NAZZAL, MUNIER Attending Unavailable NAZZAL, MUNIER Referring Unavailable SHARON, KYLE Attending Unavailable ALGHOTHANI, MOHAMAD Attending Unavailable SHARON, KYLE Attending Unavailable Allergies Allergy Classification Reported Allergen(s) Allergy Type Date of Onset Reaction(s) Facility (1 source) Allopurinol Drug Allergy 06-08-20 15 [facility] Repository (1 source) Sulfamethoxazole / Trimethoprim Drug Allergy 06-08-20 15 [facility] Repository (1 source) Cephalexin; Translations: [CEPHALEXIN] Drug Allergy 01-21-20 [facility] Repository (1 source) Sulfamethoxazole / Trimethoprim; Translations: [SULFAMETHOXAZOLE-TR IMETHOPRIM] Drug Allergy 07-29-19 [facility] Repository (1 source) TETANUS AND DIPHTHER. TOX (PF); Translations: [TETANUS AND DIPHTHER. 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] Onset: 06-26-2022 Episodic [...] Test Name Value Interpretation Reference Range Facility Office Visiton 01-21-2024 Follow-up visit [id number] Brooke Dior 1975 Date Provider Department Center 01/21/2024 3848[facility]EL [facility] Family History Problem Relation Age of Onset Heart failure Mother Coronary artery disease Mother Other Mother Other Mother Valvular heart disease Mother Coronary artery disease Mother's Sister Coronary artery disease Mother's Brother Coronary artery disease Maternal Grandfather Family Status - Relation Status Age at Mother Mother's Sister Mother's Brother Maternal Grandfather Level of Service:61082 [place] OFFICE/OUTPATIENT ESTABLISHED LOW MDM [address] [facility] 36on 09-07-2023 36 Left voicemail with callback number to speak with patient regarding CTA that was ordered in April by Dr. Leach. [facility] 29on 07-21-2023 29 Addended by: KYLE HERRERA on: 07/21/2023 10:25 AM Modules accepted: Orders [facility] Office Visiton 07-21-2023 Follow-up visit [id number] Brooke Dior 1975 Provider Department Center 07/21/2023 120-KYLE HERRERA [facility] Family History Problem Relation Age of Onset Heart failure Mother Coronary artery disease Mother Other Mother Other Mother Valvular heart disease Mother Coronary artery disease Mother's Sister Coronary artery disease Mother's Brother Coronary artery disease Maternal Grandfather Family Status - Relation Status Age at Mother Mother's Sister Mother's Brother Maternal Grandfather Level of Service:72902 [place] OFFICE/OUTPATIENT ESTABLISHED LOW MDM [address] [facility] Clinical Supporton Clinical Support [id number] Brooke Dior 1975 Count Includes [facility] Provider Department Center 05/04/2023 3413-GLV ULTRASOUND ROOM [facility] Family History Problem Relation Age of Onset Heart failure Mother Coronary artery disease Mother Other Mother Other Mother Valvular heart disease Mother Coronary artery disease Mother's Sister Coronary artery disease Mother's Brother Coronary artery disease Maternal Grandfather Family Status - Relation Status Age at Mother Mother's Sister Mother's Brother Maternal Grandfather [facility] Follow-Upon 05-04-2023 Follow-Up [id number] Brooke Dior 1975 Date Provider Department Center 05/04/2023 [facility]ION [facility] Problem Relation Age of Onset Heart failure Mother Coronary artery disease Mother Other Mother Other Mother Valvular heart disease Mother Coronary artery disease Mother's Sister Coronary artery disease Mother's Brother Coronary artery disease Maternal Grandfather Family Status - Relation Status Age at Mother Mother's Sister Mother's Brother Maternal Grandfather Level of Service:83270 [place] OFFICE/OUTPATIENT ESTABLISHED LOW MDM 20-29 MIN Reason for Visit and Comments: Follow-up [243930] [facility] 36on 04-07-2023 [address] [facility] 36 142/81, 145/85, 142/79, 139/83, 141/86, 131/85, 141/93, 140/79, 141/85, 139/96, 128/87 [facility] Orders Onlyon 04-07-2023 Orders Only [id number] Brooke Dior 1975 Date Provider Department Center 04/07/2023 KYLE BUSTILLOS [facility] Family History Problem Relation Age of Onset Heart failure Mother Coronary artery disease Mother Other Mother Other Mother Valvular heart disease Mother Coronary artery disease Mother's Sister Coronary artery disease Mother's Brother Coronary artery disease Maternal Grandfather Family Status - Relation Status Age at Mother Mother's Sister Mother's Brother Maternal Grandfather [facility] 36on 04-05-2023 36 Lm 04/05 [facility] Office Visiton 03-23-2023 Follow-up visit [id number] Brooke Dior 1975 F Date Provider Department Center 03/23/2023 DMITRI ENCARNACION [facility] Family History Problem Relation Age of Onset Heart failure Mother Coronary artery disease Mother Other Mother Other Mother Valvular heart disease Mother Coronary artery disease Mother's Sister Coronary artery disease Mother's Brother Coronary artery disease Maternal Grandfather Family Status - Relation Status Age at Mother Mother's Sister Mother's Brother Maternal Grandfather Level of Service:88583 [place] OFFICE/OUTPATIENT NEW LOW MDM 30-[address] [facility] Office Visiton 03-19-2023 Follow-up visit [id number] Brooke Dior Sarbjit 1975 F Date Provider Department Center 03/19/2023 Raysa-KYLE HERRERA [facility] Family History Problem Relation Age of Onset Heart failure Mother Coronary artery disease Mother Other Mother Other Mother Valvular heart disease Mother Coronary artery disease Mother's Sister Coronary artery disease Mother's Brother Coronary artery disease Maternal Grandfather Family Status - Relation Status Age at Mother Mother's Sister Mother's Brother Maternal Grandfather Level of Service:54841 [place] OFFICE/OUTPATIENT ESTABLISHED MOD MDM 30-39 MIN Normal [facility] NM STRESS/REST MULTIon 07-09 NM STRESS/REST MULTI Patient: BROOKE DIOR. Exam Date: 07/09/2022 : 1975 Gender:F Ordering : DR JESUS STAPLETON . Admission #: [id number] Family : Order #: [id number] CLICK HERE TO VIEW EXAM RADIOLOGY REPORT [...] M.D. on 07/13/2022 at 15:43 Normal [facility] Covid-19 PCR ([facility])on SARS-CoV-2 (COVID-19) RNA BETZY+probe Ql (Unsp spec) Not detected Normal NOT DETECTED [facility] Comment on above: Result Comment: This test is not yet approved or cleared by the [place] FDA. When there are no FDA-approved or cleared tests available, and other criteria are met, FDA can make tests available under an emergency access mechanism called an Emergency Use Authorization (EUA). The EUA for this test is supported by the Web Operations Specialist of Health and Human Service's (HHS's) declaration [...] consistent with SARS-CoV-2. Performed By: #### C VDTBH #### [facility] [address] [place] [address] Dr. Terrance Hernandez IN[facility] Normal [facility] Comment on above: Result Comment: Nega tive for Flu B protein antigen. Infection due to Flu B cannot be ruled out. Flu B antigen in the sample may be below the detection limit of the test. Performed By: #### B MAJOR ACCOUNT REPRESENTATIVE, CMP, HSTROPN #### [facility] [address] [place] [address] Dr. Terrance Hernandez INFLUENZA A AG Positive Abnormal NEGATIVE SEE COMMENT [facility] Comment on above: Performed By: #### B MAJOR ACCOUNT REPRESENTATIVE, CMP, HSTROPN #### [facility] [address] [place] [address] Dr. Terrance Hernandez INFLUENZA B AG Negative Normal NEGATIVE SEE COMMENT [facility] Comment on above: Performed By: #### B MAJOR ACCOUNT REPRESENTATIVE, CMP, HSTROPN #### [facility] [address] [place] [address] Dr. Terrance Hernandez INFLUPOSH SEE BELOW Normal [facility] Comment on above: Result Comment: NOTE : Live attenuated influenzae vaccine viruses can cause a positive result for a rapid influenza diagnostic test if administered up to 7 days prior to rapid testing. Performed By: #### B MAJOR ACCOUNT REPRESENTATIVE, CMP, HSTROPN #### [facility] [address] [place] [address] Dr. Terrance Hernandez INTERNAL CONTROLS Within Normal Limits Normal Wi thin Normal Limits [facility] Comment on above: Performed By: #### B MAJOR ACCOUNT REPRESENTATIVE, CMP, HSTROPN #### [facility] [address] [place] [address] Dr. Terrance Hernandez CBC AUTO DIFFon 06-19-2022 BASO # 0.1 103/ul Normal 0.0-0.1 [facility] Comment on above: Performed By: #### C BC #### [facility] [address] [place] [address] Dr. Terrance Hernandez Basophils/100 WBC (Bld) 0.8 % Normal 0.2-2.0 [facility] Comment on above: Performed By: #### C BC #### [facility] [address] [place] [address] Dr. Terrance Hernandez EO # 0.1 103/ul Normal 0.0-0.7 [facility] Comment on above: Performed By: #### C BC #### [facility] [address] [place] [address] Dr. Terrance Hernandez Eosinophils/100 WBC (Bld) 1.4 % Normal 0.9-7.0 [facility] Comment on above: Performed By: #### C BC #### [facility] [address] [place] [address] Dr. Terrance Hernandez Erythrocyte distribution width (RBC) [Ratio] 13.2 % Normal 11.0-15.0 [facility] Comment on above: Performed By: #### C BC #### [facility] [address] [place] [address] Dr. Terrance Hernandez Hematocrit (Bld) [Volume fraction] 41.2 % Normal 36.0-48.0 [facility] Comment on above: Performed By: #### C BC #### [facility] [address] [place] [address] Dr. Terrance Hernandez Hemoglobin (Bld) [Mass/Vol] 13.7 g/dL Normal 12.0-16.0 [facility] Comment on above: Performed By: #### C BC #### [facility] [address] [place] [address] Dr. Terrance Hernandez IG # 0.01 10e3/ul Normal 0.00-0.03 [facility] Comment on above: Performed By: #### C BC #### [facility] [address] [place] [address] Dr. Terrance Hernandez IG % 0.2 % Normal 0.0-0.5 [facility] Comment on above: Performed By: #### C BC #### [facility] [address] [place] [address] Dr. Terrance Hernandez LYMPH # 2.0 103/ul Normal 1.2-3.8 [facility] Comment on above: Performed By: #### C BC #### [facility] [address] [place] [address] Dr. Terrance Hernandez Lymphocytes/100 WBC (Bld) 29.4 % Normal 20.5-60.0 [facility] Comment on above: Performed By: #### C BC #### [facility] [address] [place] [address] Dr. Terrance Hernandez MANUAL DIFF REQ NO Normal [facility] Comment on above: Performed By: #### C BC #### [facility] [address] [place] [address] Dr. Terrance Hernandez MCH (RBC) [Entitic mass] 29.2 pg Normal 26.7-34.0 [facility] Comment on above: Performed By: #### C BC #### [facility] [address] [place] [address] Dr. Terrance Hernandez MCHC (RBC) [Mass/Vol] 33.3 g/dL Normal 29.9-35.2 [facility] Comment on above: Performed By: #### C BC #### [facility] [address] [address] [address] Terrance Hernandez MCV (RBC) [Entitic vol] 87.8 fL Normal 81.0-99.0 [facility] Comment on above: Performed By: #### C BC #### [facility] [address] [place] [address] Dr. Terrance Hernandez MONO # 0.5 103/ul Normal 0.3-0.8 [facility] Comment on above: Performed By: #### C BC #### [facility] [address] [place] [address] Dr. Terrance Hernandez Monocytes/100 WBC (Bld) 8.0 % Normal 1.7-12.0 [facility] Comment on above: Performed By: #### C BC #### [facility] [address] [place] [address] Dr. Terrance Hernandez NEUT # 4.0 103/ul Normal 1.4-6.5 [facility] Comment on above: Performed By: #### C BC #### [facility] [address] [place] [address] Dr. Terrance Hernandez Neutrophils/100 WBC (Bld) 60.2 % Normal 43.0-75.0 [facility] Comment on above: Performed By: #### C BC #### [facility] [address] [place] [address] Dr. Terrance Hernandez Platelet mean volume (Bld) [Entitic vol] 9.3 fL Critically low 9.5-13.5 [facility] Comment on above: Performed By: #### C BC #### [facility] [address] [place] [address] Dr. Terrance Hernandez PLT 250 103/ul Normal 150-450 [facility] Comment on above: Performed By: #### C BC #### [facility] [address] [place] [address] Dr. Terrance Hernandez RBC 4.69 106/ul Normal 4.20-5.40 [facility] Comment on above: Performed By: #### C BC #### [facility] [address] [place], [place] [address] Dr. Terrance Hernandez WBC 6.6 103/ul Normal 4.0-11.0 [facility] Comment on above: Performed By: #### C BC #### [facility] [address] [place], [place] [address] Dr. Terrance Hernandez ECHOCARDIO M/2D COMPLETEon 1 08-19-2021 ECHOCARDIO M/2D COMPLETE Patient: BROOKE DIOR Exam Date: 06/19/2022 : 1975 Gender:F Ordering : DR YISEL OLMEDO . Admission #: [id number] Family : DR JESUS STAPLETON . Order #: [id number] CLICK HERE TO VIEW EXAM ECHOCARDIOGRAM REPORT [...] Bell M.D. on 06/24/2022 at 13:01 Normal [facility] PROF CHEM 8 (BAS METB)on Anion gap [Moles/Vol] 9.9 mmol/L Normal [facility] Comment on above: Performed By: #### B MAJOR ACCOUNT REPRESENTATIVE, CMP, HSTROPN #### [facility] [address] [address] [address] Terrance Hernandez Calcium [Mass/Vol] 8.8 mg/dL Normal 8.5-10.1 [facility] Comment on above: Performed By: #### B MAJOR ACCOUNT REPRESENTATIVE, CMP, HSTROPN #### [facility] [address] [place] [address] Dr. Terrance Hernandez Chloride [Moles/Vol] 105 mmol/L Normal 98-107 [facility] Comment on above: Performed By: #### B MAJOR ACCOUNT REPRESENTATIVE, CMP, HSTROPN #### [facility] [address] [address] [address] Terrance Hernandez CO2 [Moles/Vol] 28.6 mmol/L Normal 21.0-32.0 [facility] Comment on above: Performed By: #### B MAJOR ACCOUNT REPRESENTATIVE, CMP, HSTROPN #### [facility] [address] [address] [address] Terrance Hernandez Creatinine [Mass/Vol] 0.59 mg/dL Normal 0.55-1.02 [facility] Comment on above: Performed By: #### B MAJOR ACCOUNT REPRESENTATIVE, CMP, HSTROPN #### [facility] [address] [address] [address] Terrance Hernandez EGFR-AF LIBYAN >60 Normal >=60 [facility] Comment on above: Performed By: #### B MAJOR ACCOUNT REPRESENTATIVE, CMP, HSTROPN #### [facility] [address] [address] [address] Terrance Hernandez EGFR-NON AF LIBYAN >60 Normal >=60 [facility] Comment on above: Performed By: #### B MAJOR ACCOUNT REPRESENTATIVE, CMP, HSTROPN #### [facility] [address] [address] [address] Terrance Hernandez Glucose [Mass/Vol] 99 mg/dL Normal 74-106 [facility] Comment on above: Performed By: #### B MAJOR ACCOUNT REPRESENTATIVE, CMP, HSTROPN #### [facility] [address] [address] [address] Terrance Hernandez Potassium [Moles/Vol] 3.5 mmol/L Normal 3.5-5.1 [facility] Comment on above: Performed By: #### B MAJOR ACCOUNT REPRESENTATIVE, CMP, HSTROPN #### [facility] [address] [place] [address] Dr. Terrance Hernandez Sodium [Moles/Vol] 140 mmol/L Normal 136-145 [facility] Comment on above: Performed By: #### B MAJOR ACCOUNT REPRESENTATIVE, CMP, HSTROPN #### [facility] [address] [place] [address] Dr. Terrance Hernandez Urea nitrogen [Mass/Vol] 13.0 mg/dL Normal 7.0-18.0 [facility] Comment on above: Performed By: #### B MAJOR ACCOUNT REPRESENTATIVE, CMP, HSTROPN #### [facility] [address] [place] [address] Dr. Terrance Hernandez Urea nitrogen/Creatinine [Mass ratio] 22.0 mg/mg Normal [facility] Comment on above: Performed By: #### B MAJOR ACCOUNT REPRESENTATIVE, CMP, HSTROPN #### [facility] [address] [place] [address] Dr. Terrance Hernandez TROPONIN, HIGH SENSITIVITYon 06-19-2022 HSTROP 104.8 pg/mL Critically high 4.0-51.3 [facility] Comment on above: Result Comment: CUT- OFF POINTS HAVE BEEN ESTABLISHED BASED ON THE FOURTH UNIVERSAL DEFINITIONS OF MYOCARDIAL INFARCTION. THE UPPER REFERENCE LIMIT (URL) OF TROPONIN, DEFINED THE 99TH PERCENTILE OF cTnI DISTRIBUTION IN A REFERENCE POPULATION, HAS BEEN CONFIRMED THE DECISION THRESHOLD FOR [place] DIAGNOSIS. Performed By: #### B MAJOR ACCOUNT REPRESENTATIVE, CMP, HSTROPN #### [facility] [address] [place] [address] Dr. Terrance Hernandez BNPon 06-18-2022 Natriuretic peptide B (Bld) [Mass/Vol] 59.0 pg/mL Normal <=450.0 [facility] Comment on above: Performed By: #### B MAJOR ACCOUNT REPRESENTATIVE, CMP, HSTROPN #### [facility] [address] [place] [address] Dr. Terrance Hernandez CBC AUTO DIFFon 06-18-2022 BASO # 0.0 103/ul Normal 0.0-0.1 [facility] Comment on above: Performed By: #### C BC #### [facility] [address] [place] [address] Dr. Terrance Hernandez Basophils/100 WBC (Bld) 0.5 % Normal 0.2-2.0 [facility] Comment on above: Performed By: #### C BC #### [facility] [address] [place] [address] Dr. Terrance Hernandez EO # 0.1 103/ul Normal 0.0-0.7 [facility] Comment on above: Performed By: #### C BC #### [facility] [address] [place] [address] Dr. Terrance Hernandez Eosinophils/100 WBC (Bld) 1.3 % Normal 0.9-7.0 [facility] Comment on above: Performed By: #### C BC #### [facility] [address] [place] [address] Dr. Terrance Hernandez Erythrocyte distribution width (RBC) [Ratio] 13.2 % Normal 11.0-15.0 [facility] Comment on above: Performed By: #### C BC #### [facility] [address] [place] [address] Dr. Terrance Hernandez Hematocrit (Bld) [Volume fraction] 40.7 % Normal 36.0-48.0 [facility] Comment on above: Performed By: #### C BC #### [facility] [address] [place] [address] Dr. Terrance Hernandez Hemoglobin (Bld) [Mass/Vol] 13.6 g/dL Normal 12.0-16.0 [facility] Comment on above: Performed By: #### C BC #### [facility] [address] [place] [address] Dr. Terrance Hernandez IG # 0.01 10e3/ul Normal 0.00-0.03 [facility] Comment on above: Performed By: #### C BC #### [facility] [address] [place] [address] Dr. Terrance Hernandez IG % 0.2 % Normal 0.0-0.5 [facility] Comment on above: Performed By: #### C BC #### [facility] [address] [place] [address] Dr. Terrance Hernandez LYMPH # 1.7 103/ul Normal 1.2-3.8 [facility] Comment on above: Performed By: #### C BC #### [facility] [address] [place] [address] Dr. Terrance Hernandez Lymphocytes/100 WBC (Bld) 25.8 % Normal 20.5-60.0 [facility] Comment on above: Performed By: #### C BC #### [facility] [address] [place] [address] Dr. Terrance Hernandez MANUAL DIFF REQ NO Normal [facility] Comment on above: Performed By: #### C BC #### [facility] [address] [place] [address] Dr. Terrance Hernandez MCH (RBC) [Entitic mass] 29.2 pg Normal 26.7-34.0 [facility] Comment on above: Performed By: #### C BC #### [facility] [address] [place] [address] Dr. Terrance Hernandez MCHC (RBC) [Mass/Vol] 33.4 g/dL Normal 29.9-35.2 [facility] Comment on above: Performed By: #### C BC #### [facility] [address] [place] [address] Dr. Terrance Hernandez MCV (RBC) [Entitic vol] 87.5 fL Normal 81.0-99.0 [facility] Comment on above: Performed By: #### C BC #### [facility] [address] [place] [address] Dr. Terrance Hernandez MONO # 0.6 103/ul Normal 0.3-0.8 [facility] Comment on above: Performed By: #### C BC #### [facility] [address] [place] [address] Dr. Terrance Hernandez Monocytes/100 WBC (Bld) 8.8 % Normal 1.7-12.0 [facility] Comment on above: Performed By: #### C BC #### [facility] [address] [place] [address] Dr. Terrance Hernandez NEUT # 4.1 103/ul Normal 1.4-6.5 [facility] Comment on above: Performed By: #### C BC #### [facility] [address] [place] [address] Dr. Terrance Hernandez Neutrophils/100 WBC (Bld) 63.4 % Normal 43.0-75.0 [facility] Comment on above: Performed By: #### C BC #### [facility] [address] [place] [address] Dr. Terrance Hernandez Platelet mean volume (Bld) [Entitic vol] 9.3 fL Critically low 9.5-13.5 [facility] Comment on above: Performed By: #### C BC #### [facility] [address] [place] [address] Dr. Terrance Hernandez PLT 255 103/ul Normal 150-450 [facility] Comment on above: Performed By: #### C BC #### [facility] [address] [place] [address] Dr. Terrance Hernandez RBC 4.65 106/ul Normal 4.20-5.40 [facility] Comment on above: Performed By: #### C BC #### [facility] [address] [place] [address] Dr. Terrance Hernandez WBC 6.4 103/ul Normal 4.0-11.0 [facility] Comment on above: Performed By: #### C BC #### [facility] [address] [place] [address] Dr. Terrance Hernandez Covid-19 PCR (CVDTB)on 05-27 SARS-CoV-2 (COVID-19) RNA BETZY+probe Ql (Unsp spec) Not detected Normal NOT DETECTED [facility] Comment on above: Result Comment: When [...] for this test is supported by the Web Operations Specialist of Health and Human Service's declaration that [...] longer be used). Performed By: #### B MAJOR ACCOUNT REPRESENTATIVE, CMP, HSTROPN #### [facility] [address] [place] [address] Dr. Terrance Hernandez D-DIMERon 06-18-2022 D-DIMER 0.48 mg/L FEU Normal <=0.59 [facility] Comment on above: Performed By: #### B MAJOR ACCOUNT REPRESENTATIVE, CMP, HSTROPN #### [facility] [address] [place] [address] Dr. Terrance Hernandez D-DIMER COMMENTS SEE BELOW Normal [facility] Comment on above: Result Comment: Incr eases [...] and generalized hospitalization. Performed By: #### B MAJOR ACCOUNT REPRESENTATIVE, CMP, HSTROPN #### [facility] [address] [address] [address] Terrance Hernandez DRUG SCREEN RAPID (URINE)on 06-18-2022 AMP Negative Normal NEGATIVE [facility] Comment on above: Performed By: #### B MAJOR ACCOUNT REPRESENTATIVE, CMP, HSTROPN #### [facility] [address] [address] [address] Terrance Hernandez BAR Negative Normal NEGATIVE [facility] Comment on above: Performed By: #### B MAJOR ACCOUNT REPRESENTATIVE, CMP, HSTROPN #### [facility] [address] [address] [address] Terrance Hernandez BUP Negative Normal NEGATIVE [facility] Comment on above: Performed By: #### B MAJOR ACCOUNT REPRESENTATIVE, CMP, HSTROPN #### [facility] [address] [place] [address] Dr. Terrance Hernandez BZO Negative Normal NEGATIVE [facility] Comment on above: Performed By: #### B MAJOR ACCOUNT REPRESENTATIVE, CMP, HSTROPN #### [facility] [address] [address] [address] Terrance Hernandez MARGOTH Negative Normal NEGATIVE [facility] Comment on above: Performed By: #### B MAJOR ACCOUNT REPRESENTATIVE, CMP, HSTROPN #### [facility] [address] [place] [address] Dr. Terrance Hernandez CUT-OFFS SEE BELOW Normal [facility] Comment on above: Result Comment: AMP (Amphetamine): 500ng/mL, BAR (Barbituates): 200 ng/mL, BZO (Benzodiazepines): 150 ng/mL, BUP (Buprenorphine): 10 ng/mL, MARGOTH (Cocaine): 150 ng/mL, mAMP (Methamphetamine): 500 ng/mL, MTD (Methadone): 200 ng/mL, OPI (Opiates): 100 ng/mL, OXY (Oxycodone): 100 ng/mL, PCP (Phencyclidine): 25 ng/mL, PPX (Propoxyphene): 300 ng/mL, THC (Cannabinoids): 50 ng/mL, TCA (Trycyclic Antidepressants): 300 ng/mL Performed By: #### B MAJOR ACCOUNT REPRESENTATIVE, CMP, HSTROPN #### [facility] [address] [address] [address] Terrance Hernandez DRUG CUT HEADER DRUG CLASS TEST SYSTEM CUT-OFF CONCENTRATIONS ARE FOLLOWS: Normal [facility] Comment on above: Performed By: #### B MAJOR ACCOUNT REPRESENTATIVE, CMP, HSTROPN #### [facility] [address] [address] [address] Terrance Hernandez mAMP Negative Normal NEGATIVE [facility] Comment on above: Performed By: #### B MAJOR ACCOUNT REPRESENTATIVE, CMP, HSTROPN #### [facility] [address] [address] [address] Terrance Hernandez MTD Negative Normal NEGATIVE [facility] Comment on above: Performed By: #### B MAJOR ACCOUNT REPRESENTATIVE, CMP, HSTROPN #### [facility] [address] [address] [address] Terrance Hernandez OPI Negative Normal NEGATIVE [facility] Comment on above: Performed By: #### B MAJOR ACCOUNT REPRESENTATIVE, CMP, HSTROPN #### [facility] [address] [address] [address] Terrance Hernandez OXY Negative Normal NEGATIVE [facility] Comment on above: Performed By: #### B MAJOR ACCOUNT REPRESENTATIVE, CMP, HSTROPN #### [facility] [address] [address] [address] Terrance Hernandez PCP Negative Normal NEGATIVE [facility] Comment on above: Performed By: #### B MAJOR ACCOUNT REPRESENTATIVE, CMP, HSTROPN #### [facility] [address] [address] [address] Terrance Hernandez PPX Negative Normal NEGATIVE [facility] Comment on above: Performed By: #### B MAJOR ACCOUNT REPRESENTATIVE, CMP, HSTROPN #### [facility] [address] [address] [address] Terrance Hernandez TCA Negative Normal NEGATIVE [facility] Comment on above: Performed By: #### B MAJOR ACCOUNT REPRESENTATIVE, CMP, HSTROPN #### [facility] [address] [place] [address] Dr. Terrance Hernandez THC Negative Normal NEGATIVE [facility] Comment on above: Performed By: #### B MAJOR ACCOUNT REPRESENTATIVE, CMP, HSTROPN #### [facility] [address] [place] [address] Dr. Terrance Hernandez PROF 14(COMP METB)on 022 Albumin [Mass/Vol] 3.6 g/dL Normal 3.4-5.0 [facility] Comment on above: Performed By: #### B MAJOR ACCOUNT REPRESENTATIVE, CMP, HSTROPN #### [facility] [address] [place] [address] Dr. Terrance Hernandez Albumin/Globulin [Mass ratio] 1.1 {ratio} Normal [facility] Comment on above: Performed By: #### B MAJOR ACCOUNT REPRESENTATIVE, CMP, HSTROPN #### [facility] [address] [place] [address] Dr. Terrance Hernandez ALP [Catalytic activity/Vol] 89 U/L Normal 46-116 [facility] Comment on above: Performed By: #### B MAJOR ACCOUNT REPRESENTATIVE, CMP, HSTROPN #### [facility] [address] [place] [address] Dr. Terrance Hernandez ALT [Catalytic activity/Vol] 44 U/L Normal 14-59 [facility] Comment on above: Performed By: #### B MAJOR ACCOUNT REPRESENTATIVE, CMP, HSTROPN #### [facility] [address] [place] [address] Dr. Terrance Hernandez Anion gap [Moles/Vol] 8.5 mmol/L Normal [facility] Comment on above: Performed By: #### B MAJOR ACCOUNT REPRESENTATIVE, CMP, HSTROPN #### [facility] [address] [place] [address] Dr. Terrance Hernandez AST [Catalytic activity/Vol] 21 U/L Normal 15-37 [facility] Comment on above: Performed By: #### B MAJOR ACCOUNT REPRESENTATIVE, CMP, HSTROPN #### [facility] [address] [place] [address] Dr. Terrance Hernandez Bilirubin [Mass/Vol] 1.0 mg/dL Normal 0.2-1.0 [facility] Comment on above: Performed By: #### B MAJOR ACCOUNT REPRESENTATIVE, CMP, HSTROPN #### [facility] [address] [place], [place] [id number] Dr. Terrance Hernandez Calcium [Mass/Vol] 8.7 mg/dL Normal 8.5-10.1 [facility] Comment on above: Performed By: #### B MAJOR ACCOUNT REPRESENTATIVE, CMP, HSTROPN #### [facility] [address] [place] [address] Dr. Terrance Hernandez Chloride [Moles/Vol] 106 mmol/L Normal 98-107 [facility] Comment on above: Performed By: #### B MAJOR ACCOUNT REPRESENTATIVE, CMP, HSTROPN #### [facility] [address] [place] [address] Dr. Terrance Hernandez CO2 [Moles/Vol] 29.0 mmol/L Normal 21.0-32.0 [facility] Comment on above: Performed By: #### B MAJOR ACCOUNT REPRESENTATIVE, CMP, HSTROPN #### [facility] [address] [place] [address] Dr. Terrance Hernandez Creatinine [Mass/Vol] 0.63 mg/dL Normal 0.55-1.02 [facility] Comment on above: Performed By: #### B MAJOR ACCOUNT REPRESENTATIVE, CMP, HSTROPN #### [facility] [address] [place] [address] Dr. Terrance Hernandez EGFR-AF LIBYAN >60 Normal >=60 [facility] Comment on above: Performed By: #### B MAJOR ACCOUNT REPRESENTATIVE, CMP, HSTROPN #### [facility] [address] [place] [address] Dr. Terrance Hernandez EGFR-NON AF LIBYAN >60 Normal >=60 [facility] Comment on above: Performed By: #### B MAJOR ACCOUNT REPRESENTATIVE, CMP, HSTROPN #### [facility] [address] [place] [address] Dr. Terrance Hernandez Globulin (S) [Mass/Vol] 3.4 g/dL Normal [facility] Comment on above: Performed By: #### B MAJOR ACCOUNT REPRESENTATIVE, CMP, HSTROPN #### [facility] [address] [place] [address] Dr. Terrance Hernandez Glucose [Mass/Vol] 102 mg/dL Normal 74-106 [facility] Comment on above: Performed By: #### B MAJOR ACCOUNT REPRESENTATIVE, CMP, HSTROPN #### [facility] [address] [place] [address] Dr. Terrance Hernandez Potassium [Moles/Vol] 3.5 mmol/L Normal 3.5-5.1 [facility] Comment on above: Performed By: #### B MAJOR ACCOUNT REPRESENTATIVE, CMP, HSTROPN #### [facility] [address] [place] [address] Dr. Terrance Hernandez Protein [Mass/Vol] 7.0 g/dL Normal 6.4-8.2 [facility] Comment on above: Performed By: #### B MAJOR ACCOUNT REPRESENTATIVE, CMP, HSTROPN #### [facility] [address] [place] [address] Dr. Terrance Hernandez Sodium [Moles/Vol] 140 mmol/L Normal 136-145 [facility] Comment on above: Performed By: #### B MAJOR ACCOUNT REPRESENTATIVE, CMP, HSTROPN #### [facility] [address] [place] [address] Dr. Terrance Hernandez Urea nitrogen [Mass/Vol] 11.0 mg/dL Normal 7.0-18.0 [facility] Comment on above: Performed By: #### B MAJOR ACCOUNT REPRESENTATIVE, CMP, HSTROPN #### [facility] [address] [place] [address] Dr. Terrance Hernandez Urea nitrogen/Creatinine [Mass ratio] 17.5 mg/mg Normal [facility] Comment on above: Performed By: #### B MAJOR ACCOUNT REPRESENTATIVE, CMP, HSTROPN #### [facility] [address] [place] [address] Dr. Terrance Hernandez TROPONIN, HIGH SENSITIVITYon 06-18-2022 HSTROP 112.7 pg/mL Critically high 4.0-51.3 [facility] Comment on above: Result Comment: CUT- OFF POINTS HAVE BEEN ESTABLISHED BASED ON THE FOURTH UNIVERSAL DEFINITIONS OF MYOCARDIAL INFARCTION. THE UPPER REFERENCE LIMIT (URL) OF TROPONIN, DEFINED THE 99TH PERCENTILE OF cTnI DISTRIBUTION IN A REFERENCE POPULATION, HAS BEEN CONFIRMED THE DECISION THRESHOLD FOR [place] DIAGNOSIS. Performed By: #### H STROPN #### [facility] [address] [address] [address] Terrance Hernandez HSTROP 111.6 pg/mL Critically high 4.0-51.3 [facility] Comment on above: Result Comment: CUT- OFF POINTS HAVE BEEN ESTABLISHED BASED ON THE FOURTH UNIVERSAL DEFINITIONS OF MYOCARDIAL INFARCTION. THE UPPER REFERENCE LIMIT (URL) OF TROPONIN, DEFINED THE 99TH PERCENTILE OF cTnI DISTRIBUTION IN A REFERENCE POPULATION, HAS BEEN CONFIRMED THE DECISION THRESHOLD FOR W[place] DIAGNOSIS. Performed By: #### H STROPN #### [facility] [address] [place] [address] Dr. Terrance Hernandez HSTROP 110.0 pg/mL Critically high 4.0-51.3 [facility] Comment on above: Result Comment: CUT- OFF POINTS HAVE BEEN ESTABLISHED BASED ON THE FOURTH UNIVERSAL DEFINITIONS OF MYOCARDIAL INFARCTION. THE UPPER REFERENCE LIMIT (URL) OF TROPONIN, DEFINED THE 99TH PERCENTILE OF cTnI DISTRIBUTION IN A REFERENCE POPULATION, HAS BEEN CONFIRMED THE DECISION THRESHOLD FOR W[place] DIAGNOSIS. Performed By: #### B MAJOR ACCOUNT REPRESENTATIVE, CMP, HSTROPN #### [facility] [address] [place] [address] Dr. Terrance Hernandez HSTROP 107.0 pg/mL Critically high 4.0-51.3 [facility] Comment on above: Result Comment: CUT- OFF POINTS HAVE BEEN ESTABLISHED BASED ON THE FOURTH UNIVERSAL DEFINITIONS OF MYOCARDIAL INFARCTION. THE UPPER REFERENCE LIMIT (URL) OF TROPONIN, DEFINED THE 99TH PERCENTILE OF cTnI DISTRIBUTION IN A REFERENCE POPULATION, HAS BEEN CONFIRMED THE DECISION THRESHOLD FOR W[place] DIAGNOSIS. Performed By: #### H STROPN #### [facility] [address] [place] [address] Dr. Terrance Hernandez HSTROP 102.0 pg/mL Critically high 4.0-51.3 [facility] Comment on above: Result Comment: CUT- OFF POINTS HAVE BEEN ESTABLISHED BASED ON THE FOURTH UNIVERSAL DEFINITIONS OF MYOCARDIAL INFARCTION. THE UPPER REFERENCE LIMIT (URL) OF TROPONIN, DEFINED THE 99TH PERCENTILE OF cTnI DISTRIBUTION IN A REFERENCE POPULATION, HAS BEEN CONFIRMED THE DECISION THRESHOLD FOR W[place] DIAGNOSIS. Performed By: #### B MAJOR ACCOUNT REPRESENTATIVE, CMP, HSTROPN #### [facility] [address] [address] [address] Terrance Hernandez TSHon 06-18-2022 TSH 1.399 uIU/mL Normal 0.358-3.740 [facility] Comment on above: Performed By: #### T #### [facility] [address] [address] [address] Terrance Hernandez XR CHEST 2 Von [...] by: GLO MCCOY Date: 2022-06-18 10:59 Normal [facility] Physician Referralon 021 Physician Referral [phone] [id number] Normal [facility] Encounters Encounter Date Encounter Type Care Provider Facility Start: 01-21-2024 End: [facility] Start: 07-21-2023 End: 07-21-[address] [facility] Start: 05-04-2023 ambulatory [facility] Start: 03-23-2023 ambulatory [facility] Start: 03-19-2023 End: 03-19-2023 [facility] Start: 07-13-2022 End: 07-14-[address] JESUS STAPLETON . Facility:[facility] Start: 07-09-2022 End: 07-10-[address] JESUS STAPLETON . Facility:[facility] Start: 07-02-2022 End: 07-02-[address] JESUS STAPLETON . Facility:[facility] Start: 06-18-2022 End: 06-19-[address] JESUS STAPLETON . Facility:[facility] Payers Date Payer Category Payer Unknown [id number] 1975 Unknown [id number] [id number] [id number] 1975 Unknown [id number] [id number] [id number] 1975 Unknown [id number] [id number] [id number] 1975 Unknown [id number] [id number] [id number] 1959 Private Health Insurance [id number] Clinical Notes 03-19-2023 to 01-21-2024 Note Date & Type Note Facility 01-21-2024 Note [facility] PRO[facility] ESS NOTE HPI: Brooke Dior is a 48 y.o. female here for follow up for HTN and LE edema. Denies chest pain, palpitations, and lightheadedness/syncope. Minimal LE edema and BRISCOE, which she states are are significantly improved since hydrochlorothiazide and metoprolol. No additional complaints or concerns. No chest pain. No orthopnea or PND. Cardiology ROS: 10 point ROS is performed and is negative unless otherwise specified in HPI. Visit Vitals BP 124/82 (BP Location: Left arm, Patient Position: Sitting) Pulse 64 Ht 1.702 m (5' 7 ) Wt 123 kg (272 lb) SpO2 98% BMI 42.60 kg/m??? Smoking Status Never BSA 2.41 m??? Allergies Allergen Reactions Cephalexin Other Bactrim [Sulfamethoxazole-Trimethoprim] Tetanus And Diphther. Tox (Pf) [...] 90 tablet 3 metoprolol succinate XL (Toprol-XL) 100 mg 24 hr tablet Take 1 tablet (100 mg) by mouth in the morning. Do not crush or chew. 90 tablet [...] Continue toprol 100 mg daily and hydrochlorothiazide. Patient instructed to check daily blood pressure at home 2 hours after taking medication. Patient is instructed to maintain daily blood pressure log. Patient is to contact cardiology if blood pressures above discuss target range. Patient voices understanding. Atypical chest pain This has resolved. No chest Israel Garay MD [facility] 07-21-2023 Note Currently resolved [facility] 07-21-2023 Note Patient here for 4 [...] All other systems reviewed and are negative. 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 Review of Systems Cardiovascular: Positive for leg [...] chest pain Currently resolved RTC 6 month [facility] 07-20-2023 Note Hypertension is well controlled with addition of hydrochlorothiazide Continue toprol 100 mg daily and hydrochlorothiazide. Renal function had remained stable and normal [facility] 07-20-2023 Note F/U with Dr Leach- vascular gloria clint [facility] 05-04-2023 Note Subjective Patient ID: Brooke [...] past 36 hour(s)). No follow-ups on file. [facility] 04-07-2023 Note Staff reported pt's b/p [...] electrolyte Kyle Herrera NP Division of Cardiology, [facility]- [phone] Pager- [phone] Email- [email or web address] 03-23-2023 Note Subjective Patient ID: Brooke Dior is a 47 y.o. female who presents for new patient consult from Kyle Herrera NP at [facility] for BLE edema. HPI Patient presenting [...] past 36 hour(s)). No follow-ups on file. 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 She has [id number] compression socks that most of time hurts [...] and allergic danny (more content not included)... [facility] 03-19-2023 Note Patient here for 6 [...] All other systems reviewed and are negative. [facility] Summary Purpose Family History No Family History Records FoundNo Family History Records FoundNo Family History Records Found Advance Directives No Advanced Directives Records FoundNo Advanced Directives Records FoundNo Advanced Directives Records Found Additional Source Comments INFORMATION SOURCE (unrecogn ized section and content) DATE CREATED AUTHOR 03/09/2021 [facility] DATE CREATED AUTHOR AUTHOR'S ORGANIZ ATION 11/27/2022 [facility] De [facility] DATE CREATED AUTHOR AUTHOR'S ORGANIZ ATION 02/29/2024 [facility] FOR RECORDS PERTAINING TO PATIENTS WHO ARE [...] BE BASED ON THE PRIMARY CLINICAL RECORDS. [employer] [facility]. provides no warranty or guarantee of the accuracy or completeness of information in this document.
== END 2024-05-03 12:13 | disposition home or self-care (01) ==
LOC: LAB 12:13
PROVIDERS: PCP Family Medicine; Visit Provider Family Medicine
DX: R60.9 Edema, unspecified (principal)
CPT/HCPCS: 93971

== ENCOUNTER 2024-06-27 16:32 | Outpatient (OUT) | payer BC, SELFPAY ==
--- OUTSIDE RECORDS SUMMARY | 2024-06-27 16:51 | XMS_ITS | CCD ---
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 TOX (PF); Translations: [TETANUS AND DIPHTHER. TOX (PF)] Propensity to adverse reactions to drug (disorder) 07-29-19 [facility] Repository Problems Active Problems Problem Classification [...] Onset: 07-13-2022 Episodic Other aftercare (1 source) roasterman (current) use of aspirin; Translations: [SNF CURRENT USE OF ASPIRIN] Onset: 06-26-2022 Episodic [...] Range Facility Office Visiton 01-21-2024 Follow-up visit [id number] Brooke Dior 1975 Date Provider Department Center [...] Sister Mother's Brother Maternal Grandfather Level of Service:44260 OR OFFICE/OUTPATIENT ESTABLISHED LOW MDM 20 MIN [facility] 36on 09-07-2023 36 Left voicemail with callback number to speak with patient regarding CTA that was ordered in April by Dr. Leach. [facility] 29on 07-21-2023 29 Addended by: KYLE HERRERA on: 07/21/2023 10:25 AM Modules accepted: Orders [facility] Office Visiton 07-21-2023 Follow-up visit [id number] Brooke Dior 1975 Provider Department Center 07/21/2023 [...] Sister Mother's Brother Maternal Grandfather Level of Service:10379 OR OFFICE/OUTPATIENT ESTABLISHED LOW MDM 20 MIN [facility] Clinical Supporton Clinical Support [id number] Brooke Dior 1975 [facility] Provider Department Center 05/04/2023 [id number] ULTRASOUND ROOM GLV [facility] Family History Problem Relation Age of Onset Heart failure Mother Coronary artery disease Mother Other Mother Other Mother Valvular heart disease Mother Coronary artery disease Mother's Sister Coronary artery disease Mother's Brother Coronary artery disease Maternal Grandfather Family Status - Relation Status Age at Mother Mother's Sister Mother's Brother Maternal Grandfather [facility] Follow-Upon 05-04-2023 Follow-Up [id number] Brooke Dior 1975 Date Provider Department Center 05/04/2023 [facility] Problem Relation Age of Onset Heart failure Mother Coronary artery disease Mother Other Mother Other Mother Valvular heart disease Mother Coronary artery disease Mother's Sister Coronary artery disease Mother's Brother Coronary artery disease Maternal Grandfather Family Status - Relation Status Age at Mother Mother's Sister Mother's Brother Maternal Grandfather Level of Service:12331 OR OFFICE/OUTPATIENT ESTABLISHED LOW MDM 20-29 MIN Reason for Visit and Comments: Follow-up [[id number]] [facility] 36on 04-07-2023 36 Please see bps [facility] 36 142/81, 145/85, 142/79, 139/83, 141/86, 131/85, 141/93, 140/79, 141/85, 139/96, 128/87 [facility] Orders Onlyon 04-07-2023 Orders Only [id number] Brooke Dior 1975 Date Provider Department Center 04/07/2023 KYLE BUSTILLOS [facility] Family History Problem Relation Age of Onset Heart failure Mother Coronary artery disease Mother Other Mother Other Mother Valvular heart disease Mother Coronary artery disease Mother's Sister Coronary artery disease Mother's Brother Coronary artery disease Maternal Grandfather Family Status - Relation Status Age at Mother Mother's Sister Mother's Brother Maternal Grandfather [facility] 36on 04-05-2023 36 Lm 04/05 [facility] Office Visiton 03-23-2023 Follow-up visit [id number] Brooke Dior 1975 F Date Provider Department Center 03/23/2023 DMITRI ENCARNACION GLV [facility] Family History Problem Relation Age of Onset Heart failure Mother Coronary artery disease Mother Other Mother Other Mother Valvular heart disease Mother Coronary artery disease Mother's Sister Coronary artery disease Mother's Brother Coronary artery disease Maternal Grandfather Family Status - Relation Status Age at Mother Mother's Sister Mother's Brother Maternal Grandfather Level of Service:75039 OR OFFICE/OUTPATIENT NEW LOW MDM 30-44 MINUTES [facility] Office Visiton 03-19-2023 Follow-up visit [id number] Brooke Dior Sarbjit 1975 F Date Provider [...] Sister Mother's Brother Maternal Grandfather Level of Service:70513 OR OFFICE/OUTPATIENT ESTABLISHED MOD MDM 30-39 MIN Normal [facility] NM STRESS/REST MULTIon 07-09 NM STRESS/REST MULTI Patient: BROOKE DIOR. Exam Date: 07/09/2022 : 1975 Gender:F Ordering : DR JESUS STAPLETON . Admission #: [id number] Family : Order #: [id number] CLICK HERE TO VIEW EXAM RADIOLOGY REPORT [...] M.D. on 07/13/2022 at 15:43 Normal [facility] Covid-19 PCR ([facility])on SARS-CoV-2 (COVID-19) RNA BETZY+probe Ql (Unsp spec) Not detected Normal NOT DETECTED [facility] Comment on above: Result Comment: This test is not yet approved or cleared by the [place] FDA. When there are no FDA-approved or cleared tests available, and other criteria are met, FDA can make tests available under an emergency access mechanism called an Emergency Use Authorization (EUA). The EUA for this test is supported by the [place] of Health and Human Service's (HHS's) declaration [...] SARS-CoV-2. Performed By: #### C VDTBH #### [facility] [address] [place] [address] Dr. Terrance Hernandez [facility] Normal [facility] Comment on above: Result Comment: Nega tive for Flu B protein antigen. Infection due to Flu B cannot be ruled out. Flu B antigen in the sample may be below the detection limit of the test. Performed By: #### B GUARD CHIEF, CMP, HSTROPN #### [facility] [address] [place] [address] Dr. Terrance Hernandez INFLUENZA A AG Positive Abnormal NEGATIVE SEE COMMENT [facility] Comment on above: Performed By: #### B GUARD CHIEF, CMP, HSTROPN #### [facility] [address] [place] [address] Dr. Terrance Hernandez INFLUENZA B AG Negative Normal NEGATIVE SEE COMMENT [facility] Comment on above: Performed By: #### B GUARD CHIEF, CMP, HSTROPN #### [facility] [address] [place] [address] Dr. Terrance Hernandez INFLUPOSH SEE BELOW Normal [facility] Comment on above: Result Comment: NOTE : Live attenuated influenzae vaccine viruses can cause a positive result for a rapid influenza diagnostic test if administered up to 7 days prior to rapid testing. Performed By: #### B GUARD CHIEF, CMP, HSTROPN #### [facility] [address] [place] [address] Dr. Terrance Hernandez INTERNAL CONTROLS Within Normal Limits Normal Wi thin Normal Limits [facility] Comment on above: Performed By: #### B GUARD CHIEF, CMP, HSTROPN #### [facility] [address] [place] [address] Dr. Terrance Hernandez CBC AUTO DIFFon 06-19-2022 BASO # 0.1 103/ul Normal 0.0-0.1 [facility] Comment on above: Performed By: #### C BC #### [facility] [address] [place] [address] Dr. Terrance Hernandez Basophils/100 WBC (Bld) 0.8 % Normal 0.2-2.0 [facility] Comment on above: Performed By: #### C BC #### [facility] [address] [place] [address] Dr. Terrance Hernandez EO # 0.1 103/ul Normal 0.0-0.7 [facility] Comment on above: Performed By: #### C BC #### [facility] [address] [place] [address] Dr. Terrance Hernandez Eosinophils/100 WBC (Bld) 1.4 % Normal 0.9-7.0 [facility] Comment on above: Performed By: #### C BC #### [facility] [address] [place] [address] Dr. Terrance Hernandez Erythrocyte distribution width (RBC) [Ratio] 13.2 % Normal 11.0-15.0 [facility] Comment on above: Performed By: #### C BC #### [facility] [address] [place] [address] Dr. Terrance Hernandez Hematocrit (Bld) [Volume fraction] 41.2 % Normal 36.0-48.0 [facility] Comment on above: Performed By: #### C BC #### [facility] [address] [place] [address] Dr. Terrance Hernandez Hemoglobin (Bld) [Mass/Vol] 13.7 g/dL Normal 12.0-16.0 [facility] Comment on above: Performed By: #### C BC #### [facility] [address] [place] [address] Dr. Terrance Hernandez IG # 0.01 10e3/ul Normal 0.00-0.03 [facility] Comment on above: Performed By: #### C BC #### [facility] [address] [place] [address] Dr. Terrance Hernandez IG % 0.2 % Normal 0.0-0.5 [facility] Comment on above: Performed By: #### C BC #### [facility] [address] [place] [address] Dr. Terrance Hernandez LYMPH # 2.0 103/ul Normal 1.2-3.8 [facility] Comment on above: Performed By: #### C BC #### [facility] [address] [place] [address] Dr. Terrance Hernandez Lymphocytes/100 WBC (Bld) 29.4 % Normal 20.5-60.0 [facility] Comment on above: Performed By: #### C BC #### [facility] [address] [place] [address] Dr. Terrance Hernandez MANUAL DIFF REQ NO Normal [facility] Comment on above: Performed By: #### C BC #### [facility] [address] [place] [address] Dr. Terrance Hernandez MCH (RBC) [Entitic mass] 29.2 pg Normal 26.7-34.0 [facility] Comment on above: Performed By: #### C BC #### [facility] [address] [place] [address] Dr. Terrance Hernandez MCHC (RBC) [Mass/Vol] 33.3 g/dL Normal 29.9-35.2 [facility] Comment on above: Performed By: #### C BC #### [facility] [address] [address] [address] Terrance Hernandez MCV (RBC) [Entitic vol] 87.8 fL Normal 81.0-99.0 [facility] Comment on above: Performed By: #### C BC #### [facility] [address] [place] [address] Dr. Terrance Hernandez MONO # 0.5 103/ul Normal 0.3-0.8 [facility] Comment on above: Performed By: #### C BC #### [facility] [address] [place] [address] Dr. Terrance Hernandez Monocytes/100 WBC (Bld) 8.0 % Normal 1.7-12.0 [facility] Comment on above: Performed By: #### C BC #### [facility] [address] [place] [address] Dr. Terrance Hernandez NEUT # 4.0 103/ul Normal 1.4-6.5 [facility] Comment on above: Performed By: #### C BC #### [facility] [address] [place] [address] Dr. Terrance Hernandez Neutrophils/100 WBC (Bld) 60.2 % Normal 43.0-75.0 [facility] Comment on above: Performed By: #### C BC #### [facility] [address] [place] [address] Dr. Terrance Hernandez Platelet mean volume (Bld) [Entitic vol] 9.3 fL Critically low 9.5-13.5 [facility] Comment on above: Performed By: #### C BC #### [facility] [address] [place] [address] Dr. Terrance Hernandez PLT 250 103/ul Normal 150-450 [facility] Comment on above: Performed By: #### C BC #### [facility] [address] [place] [address] Dr. Terrance Hernandez RBC 4.69 106/ul Normal 4.20-5.40 [facility] Comment on above: Performed By: #### C BC #### [facility] [address] [place], [place] [address] Dr. Terrance Hernandez WBC 6.6 103/ul Normal 4.0-11.0 [facility] Comment on above: Performed By: #### C BC #### [facility] [address] [place], [place] [address] Dr. Terrance Hernandez ECHOCARDIO M/2D COMPLETEon 1 08-19-2021 ECHOCARDIO M/2D COMPLETE Patient: BROOKE DIOR Exam Date: 06/19/2022 : 1975 Gender:F Ordering : DR YISEL OLMEDO . Admission #: [id number] Family : DR JESUS STAPLETON . Order #: [id number] CLICK HERE TO VIEW EXAM ECHOCARDIOGRAM REPORT [...] Bell M.D. on 06/24/2022 at 13:01 Normal [facility] PROF CHEM 8 (BAS METB)on Anion gap [Moles/Vol] 9.9 mmol/L Normal [facility] Comment on above: Performed By: #### B GUARD CHIEF, CMP, HSTROPN #### [facility] [address] [address] [address] Terrance Hernandez Calcium [Mass/Vol] 8.8 mg/dL Normal 8.5-10.1 [facility] Comment on above: Performed By: #### B GUARD CHIEF, CMP, HSTROPN #### [facility] [address] [place] [address] Dr. Terrance Hernandez Chloride [Moles/Vol] 105 mmol/L Normal 98-107 [facility] Comment on above: Performed By: #### B GUARD CHIEF, CMP, HSTROPN #### [facility] [address] [address] [address] Terrance Hernandez CO2 [Moles/Vol] 28.6 mmol/L Normal 21.0-32.0 [facility] Comment on above: Performed By: #### B GUARD CHIEF, CMP, HSTROPN #### [facility] [address] [address] [address] Terrance Hernandez Creatinine [Mass/Vol] 0.59 mg/dL Normal 0.55-1.02 [facility] Comment on above: Performed By: #### B GUARD CHIEF, CMP, HSTROPN #### [facility] [address] [address] [address] Terrance Hernandez EGFR-AF COMORAN >60 Normal >=60 [facility] Comment on above: Performed By: #### B GUARD CHIEF, CMP, HSTROPN #### [facility] [address] [address] [address] Terrance Hernandez EGFR-NON AF COMORAN >60 Normal >=60 [facility] Comment on above: Performed By: #### B GUARD CHIEF, CMP, HSTROPN #### [facility] [address] [address] [address] Terrance Hernandez Glucose [Mass/Vol] 99 mg/dL Normal 74-106 [facility] Comment on above: Performed By: #### B GUARD CHIEF, CMP, HSTROPN #### [facility] [address] [address] [address] Terrance Hernandez Potassium [Moles/Vol] 3.5 mmol/L Normal 3.5-5.1 [facility] Comment on above: Performed By: #### B GUARD CHIEF, CMP, HSTROPN #### [facility] [address] [place] [address] Dr. Terrance Hernandez Sodium [Moles/Vol] 140 mmol/L Normal 136-145 [facility] Comment on above: Performed By: #### B GUARD CHIEF, CMP, HSTROPN #### [facility] [address] [place] [address] Dr. Terrance Hernandez Urea nitrogen [Mass/Vol] 13.0 mg/dL Normal 7.0-18.0 [facility] Comment on above: Performed By: #### B GUARD CHIEF, CMP, HSTROPN #### [facility] [address] [place] [address] Dr. Terrance Hernandez Urea nitrogen/Creatinine [Mass ratio] 22.0 mg/mg Normal [facility] Comment on above: Performed By: #### B GUARD CHIEF, CMP, HSTROPN #### [facility] [address] [place] [address] Dr. Terrance Hernandez TROPONIN, HIGH SENSITIVITYon 06-19-2022 HSTROP 104.8 pg/mL Critically high 4.0-51.3 [facility] Comment on above: Result Comment: CUT- OFF POINTS HAVE BEEN ESTABLISHED BASED ON THE FOURTH UNIVERSAL DEFINITIONS OF MYOCARDIAL INFARCTION. THE UPPER REFERENCE LIMIT (URL) OF TROPONIN, DEFINED THE 99TH PERCENTILE OF cTnI DISTRIBUTION IN A REFERENCE POPULATION, HAS BEEN CONFIRMED THE DECISION THRESHOLD FOR [place] DIAGNOSIS. Performed By: #### B GUARD CHIEF, CMP, HSTROPN #### [facility] [address] [place] [address] Dr. Terrance Hernandez BNPon 06-18-2022 Natriuretic peptide B (Bld) [Mass/Vol] 59.0 pg/mL Normal <=450.0 [facility] Comment on above: Performed By: #### B GUARD CHIEF, CMP, HSTROPN #### [facility] [address] [place] [address] Dr. Terrance Hernandez CBC AUTO DIFFon 06-18-2022 BASO # 0.0 103/ul Normal 0.0-0.1 [facility] Comment on above: Performed By: #### C BC #### [facility] [address] [place] [address] Dr. Terrance Hernandez Basophils/100 WBC (Bld) 0.5 % Normal 0.2-2.0 [facility] Comment on above: Performed By: #### C BC #### [facility] [address] [place] [address] Dr. Terrance Hernandez EO # 0.1 103/ul Normal 0.0-0.7 [facility] Comment on above: Performed By: #### C BC #### [facility] [address] [place] [address] Dr. Terrance Hernandez Eosinophils/100 WBC (Bld) 1.3 % Normal 0.9-7.0 [facility] Comment on above: Performed By: #### C BC #### [facility] [address] [place] [address] Dr. Terrance Hernandez Erythrocyte distribution width (RBC) [Ratio] 13.2 % Normal 11.0-15.0 [facility] Comment on above: Performed By: #### C BC #### [facility] [address] [place] [address] Dr. Terrance Hernandez Hematocrit (Bld) [Volume fraction] 40.7 % Normal 36.0-48.0 [facility] Comment on above: Performed By: #### C BC #### [facility] [address] [place] [address] Dr. Terrance Hernandez Hemoglobin (Bld) [Mass/Vol] 13.6 g/dL Normal 12.0-16.0 [facility] Comment on above: Performed By: #### C BC #### [facility] [address] [place] [address] Dr. Terrance Hernandez IG # 0.01 10e3/ul Normal 0.00-0.03 [facility] Comment on above: Performed By: #### C BC #### [facility] [address] [place] [address] Dr. Terrance Hernandez IG % 0.2 % Normal 0.0-0.5 [facility] Comment on above: Performed By: #### C BC #### [facility] [address] [place] [address] Dr. Terrance Hernandez LYMPH # 1.7 103/ul Normal 1.2-3.8 [facility] Comment on above: Performed By: #### C BC #### [facility] [address] [place] [address] Dr. Terrance Hernandez Lymphocytes/100 WBC (Bld) 25.8 % Normal 20.5-60.0 [facility] Comment on above: Performed By: #### C BC #### [facility] [address] [place] [address] Dr. Terrance Hernandez MANUAL DIFF REQ NO Normal [facility] Comment on above: Performed By: #### C BC #### [facility] [address] [place] [address] Dr. Terrance Hernandez MCH (RBC) [Entitic mass] 29.2 pg Normal 26.7-34.0 [facility] Comment on above: Performed By: #### C BC #### [facility] [address] [place] [address] Dr. Terrance Hernandez MCHC (RBC) [Mass/Vol] 33.4 g/dL Normal 29.9-35.2 [facility] Comment on above: Performed By: #### C BC #### [facility] [address] [place] [address] Dr. Terrance Hernandez MCV (RBC) [Entitic vol] 87.5 fL Normal 81.0-99.0 [facility] Comment on above: Performed By: #### C BC #### [facility] [address] [place] [address] Dr. Terrance Hernandez MONO # 0.6 103/ul Normal 0.3-0.8 [facility] Comment on above: Performed By: #### C BC #### [facility] [address] [place] [address] Dr. Terrance Hernandez Monocytes/100 WBC (Bld) 8.8 % Normal 1.7-12.0 [facility] Comment on above: Performed By: #### C BC #### [facility] [address] [place] [address] Dr. Terrance Hernandez NEUT # 4.1 103/ul Normal 1.4-6.5 [facility] Comment on above: Performed By: #### C BC #### [facility] [address] [place] [address] Dr. Terrance Hernandez Neutrophils/100 WBC (Bld) 63.4 % Normal 43.0-75.0 [facility] Comment on above: Performed By: #### C BC #### [facility] [address] [place] [address] Dr. Terrance Hernandez Platelet mean volume (Bld) [Entitic vol] 9.3 fL Critically low 9.5-13.5 [facility] Comment on above: Performed By: #### C BC #### [facility] [address] [place] [address] Dr. Terrance Hernandez PLT 255 103/ul Normal 150-450 [facility] Comment on above: Performed By: #### C BC #### [facility] [address] [place] [address] Dr. Terrance Hernandez RBC 4.65 106/ul Normal 4.20-5.40 [facility] Comment on above: Performed By: #### C BC #### [facility] [address] [place] [address] Dr. Terrance Hernandez WBC 6.4 103/ul Normal 4.0-11.0 [facility] Comment on above: Performed By: #### C BC #### [facility] [address] [place] [address] Dr. Terrance Hernandez Covid-19 PCR (CVDTB)on 05-27 SARS-CoV-2 (COVID-19) RNA BETZY+probe Ql (Unsp spec) Not detected Normal NOT DETECTED [facility] Comment on above: Result Comment: When diagnostic [...] for this test is supported by the [place] of Health and Human Service's declaration that [...] longer be used). Performed By: #### B GUARD CHIEF, CMP, HSTROPN #### [facility] [address] [place] [address] Dr. Terrance Hernandez D-DIMERon 06-18-2022 D-DIMER 0.48 mg/L FEU Normal <=0.59 The [facility] Comment on above: Performed By: #### B GUARD CHIEF, CMP, HSTROPN #### [facility] [address] [place] [address] Dr. Terrance Hernandez D-DIMER COMMENTS SEE BELOW Normal [facility] Comment on above: Result Comment: Incr [...] and generalized hospitalization. Performed By: #### B GUARD CHIEF, CMP, HSTROPN #### [facility] [address] [address] [address] Terrance Hernandez DRUG SCREEN RAPID (URINE)on 06-18-2022 AMP Negative Normal NEGATIVE [facility] Comment on above: Performed By: #### B GUARD CHIEF, CMP, HSTROPN #### [facility] [address] [address] [address] Terrance Hernandez BAR Negative Normal NEGATIVE [facility] Comment on above: Performed By: #### B GUARD CHIEF, CMP, HSTROPN #### [facility] [address] [address] [address] Terrance Hernandez BUP Negative Normal NEGATIVE [facility] Comment on above: Performed By: #### B GUARD CHIEF, CMP, HSTROPN #### [facility] [address] [place] [address] Dr. Terrance Hernandez BZO Negative Normal NEGATIVE [facility] Comment on above: Performed By: #### B GUARD CHIEF, CMP, HSTROPN #### [facility] [address] [address] [address] Terrance Hernandez MARGOTH Negative Normal NEGATIVE [facility] Comment on above: Performed By: #### B GUARD CHIEF, CMP, HSTROPN #### [facility] [address] [place] [address] Dr. Terrance Hernandez CUT-OFFS SEE BELOW Normal [facility] Comment on above: Result Comment: AMP (Amphetamine): 500ng/mL, BAR (Barbituates): 200 ng/mL, BZO (Benzodiazepines): 150 ng/mL, BUP (Buprenorphine): 10 ng/mL, MARGOTH (Cocaine): 150 ng/mL, mAMP (Methamphetamine): 500 ng/mL, MTD (Methadone): 200 ng/mL, OPI (Opiates): 100 ng/mL, OXY (Oxycodone): 100 ng/mL, PCP (Phencyclidine): 25 ng/mL, PPX (Propoxyphene): 300 ng/mL, THC (Cannabinoids): 50 ng/mL, TCA (Trycyclic Antidepressants): 300 ng/mL Performed By: #### B GUARD CHIEF, CMP, HSTROPN #### [facility] [address] [address] [address] Terrance Hernandez DRUG CUT HEADER DRUG CLASS TEST SYSTEM CUT-OFF CONCENTRATIONS ARE FOLLOWS: Normal [facility] Comment on above: Performed By: #### B GUARD CHIEF, CMP, HSTROPN #### [facility] [address] [address] [address] Terrance Hernandez mAMP Negative Normal NEGATIVE [facility] Comment on above: Performed By: #### B GUARD CHIEF, CMP, HSTROPN #### [facility] [facility] [address] [address] [address] Terrance Hernandez MTD Negative Normal NEGATIVE [facility] Comment on above: Performed By: #### B GUARD CHIEF, CMP, HSTROPN #### [facility] [address] [address] [address] Terrance Hernandez OPI Negative Normal NEGATIVE [facility] Comment on above: Performed By: #### B GUARD CHIEF, CMP, HSTROPN #### [facility] [address] [address] [address] Terrance Hernandez OXY Negative Normal NEGATIVE [facility] Comment on above: Performed By: #### B GUARD CHIEF, CMP, HSTROPN #### [facility] [address] [address] [address] Terrance Hernandez PCP Negative Normal NEGATIVE [facility] Comment on above: Performed By: #### B GUARD CHIEF, CMP, HSTROPN #### [facility] [address] [address] [address] Terrance Hernandez PPX Negative Normal NEGATIVE [facility] Comment on above: Performed By: #### B GUARD CHIEF, CMP, HSTROPN #### [facility] [address] [address] [address] Terrance Hernandez TCA Negative Normal NEGATIVE [facility] Comment on above: Performed By: #### B GUARD CHIEF, CMP, HSTROPN #### [facility] [address] [place] [address] Dr. Terrance Hernandez THC Negative Normal NEGATIVE [facility] Comment on above: Performed By: #### B GUARD CHIEF, CMP, HSTROPN #### [facility] [address] [place] [address] Dr. Terrance Hernandez PROF 14(COMP METB)on 022 Albumin [Mass/Vol] 3.6 g/dL Normal 3.4-5.0 [facility] Comment on above: Performed By: #### B GUARD CHIEF, CMP, HSTROPN #### [facility] [address] [place] [address] Dr. Terrance Hernandez Albumin/Globulin [Mass ratio] 1.1 {ratio} Normal [facility] Comment on above: Performed By: #### B GUARD CHIEF, CMP, HSTROPN #### [facility] [address] [place] [address] Dr. Terrance Hernandez ALP [Catalytic activity/Vol] 89 U/L Normal 46-116 [facility] Comment on above: Performed By: #### B GUARD CHIEF, CMP, HSTROPN #### [facility] [address] [place] [address] Dr. Terrance Hernandez ALT [Catalytic activity/Vol] 44 U/L Normal 14-59 [facility] Comment on above: Performed By: #### B GUARD CHIEF, CMP, HSTROPN #### [facility] [address] [place] [address] Dr. Terrance Hernandez Anion gap [Moles/Vol] 8.5 mmol/L Normal [facility] Comment on above: Performed By: #### B GUARD CHIEF, CMP, HSTROPN #### [facility] [address] [place] [address] Dr. Terrance Hernandez AST [Catalytic activity/Vol] 21 U/L Normal 15-37 [facility] Comment on above: Performed By: #### B GUARD CHIEF, CMP, HSTROPN #### [facility] [address] [place] [address] Dr. Terrance Hernandez Bilirubin [Mass/Vol] 1.0 mg/dL Normal 0.2-1.0 [facility] Comment on above: Performed By: #### B GUARD CHIEF, CMP, HSTROPN #### [facility] [address] [place], [place] [id number] Dr. Terrance Hernandez Calcium [Mass/Vol] 8.7 mg/dL Normal 8.5-10.1 [facility] Comment on above: Performed By: #### B GUARD CHIEF, CMP, HSTROPN #### [facility] [address] [place] [address] Dr. Terrance Hernandez Chloride [Moles/Vol] 106 mmol/L Normal 98-107 [facility] Comment on above: Performed By: #### B GUARD CHIEF, CMP, HSTROPN #### [facility] [address] [place] [address] Dr. Terrance Hernandez CO2 [Moles/Vol] 29.0 mmol/L Normal 21.0-32.0 [facility] Comment on above: Performed By: #### B GUARD CHIEF, CMP, HSTROPN #### [facility] [address] [place] [address] Dr. Terrance Hrenandez Creatinine [Mass/Vol] 0.63 mg/dL Normal 0.55-1.02 [facility] Comment on above: Performed By: #### B GUARD CHIEF, CMP, HSTROPN #### [facility] [address] [place] [address] Dr. Terrance Hernandez EGFR-AF COMORAN >60 Normal >=60 [facility] Comment on above: Performed By: #### B GUARD CHIEF, CMP, HSTROPN #### [facility] [address] [place] [address] Dr. Terrance Hernandez EGFR-NON AF COMORAN >60 Normal >=60 [facility] Comment on above: Performed By: #### B GUARD CHIEF, CMP, HSTROPN #### [facility] [address] [place] [address] Dr. Terrance Hernandez Globulin (S) [Mass/Vol] 3.4 g/dL Normal [facility] Comment on above: Performed By: #### B GUARD CHIEF, CMP, HSTROPN #### [facility] [address] [place] [address] Dr. Terrance Hernandez Glucose [Mass/Vol] 102 mg/dL Normal 74-106 [facility] Comment on above: Performed By: #### B GUARD CHIEF, CMP, HSTROPN #### [facility] [address] [place] [address] Dr. Terrance Hernandez Potassium [Moles/Vol] 3.5 mmol/L Normal 3.5-5.1 [facility] Comment on above: Performed By: #### B GUARD CHIEF, CMP, HSTROPN #### [facility] [address] [place] [address] Dr. Terrance Hernandez Protein [Mass/Vol] 7.0 g/dL Normal 6.4-8.2 [facility] Comment on above: Performed By: #### B GUARD CHIEF, CMP, HSTROPN #### [facility] [address] [place] [address] Dr. Terrance Hernandez Sodium [Moles/Vol] 140 mmol/L Normal 136-145 [facility] Comment on above: Performed By: #### B GUARD CHIEF, CMP, HSTROPN #### [facility] [address] [place] [address] Dr. Terrance Hernandez Urea nitrogen [Mass/Vol] 11.0 mg/dL Normal 7.0-18.0 [facility] Comment on above: Performed By: #### B GUARD CHIEF, CMP, HSTROPN #### [facility] [address] [place] [address] Dr. Terrance Hernandez Urea nitrogen/Creatinine [Mass ratio] 17.5 mg/mg Normal [facility] Comment on above: Performed By: #### B GUARD CHIEF, CMP, HSTROPN #### [facility] [address] [place] [address] Dr. Terrance Hernandez TROPONIN, HIGH SENSITIVITYon 06-18-2022 HSTROP 112.7 pg/mL Critically high 4.0-51.3 [facility] Comment on above: Result Comment: CUT- OFF POINTS HAVE BEEN ESTABLISHED BASED ON THE FOURTH UNIVERSAL DEFINITIONS OF MYOCARDIAL INFARCTION. THE UPPER REFERENCE LIMIT (URL) OF TROPONIN, DEFINED THE 99TH PERCENTILE OF cTnI DISTRIBUTION IN A REFERENCE POPULATION, HAS BEEN CONFIRMED THE DECISION THRESHOLD FOR [place] DIAGNOSIS. Performed By: #### H STROPN #### [facility] [address] [address] [address] Terrance Hernandez HSTROP 111.6 pg/mL Critically high 4.0-51.3 [facility] Comment on above: Result Comment: CUT- OFF POINTS HAVE BEEN ESTABLISHED BASED ON THE FOURTH UNIVERSAL DEFINITIONS OF MYOCARDIAL INFARCTION. THE UPPER REFERENCE LIMIT (URL) OF TROPONIN, DEFINED THE 99TH PERCENTILE OF cTnI DISTRIBUTION IN A REFERENCE POPULATION, HAS BEEN CONFIRMED THE DECISION THRESHOLD FOR [place] DIAGNOSIS. Performed By: #### H STROPN #### [facility] [address] [place] [address] Dr. Terrance Hernandez HSTROP 110.0 pg/mL Critically high 4.0-51.3 [facility] Comment on above: Result Comment: CUT- OFF POINTS HAVE BEEN ESTABLISHED BASED ON THE FOURTH UNIVERSAL DEFINITIONS OF MYOCARDIAL INFARCTION. THE UPPER REFERENCE LIMIT (URL) OF TROPONIN, DEFINED THE 99TH PERCENTILE OF cTnI DISTRIBUTION IN A REFERENCE POPULATION, HAS BEEN CONFIRMED THE DECISION THRESHOLD FOR [place] DIAGNOSIS. Performed By: #### B GUARD CHIEF, CMP, HSTROPN #### [facility] [address] [place] [address] Dr. Terrance Hernandez HSTROP 107.0 pg/mL Critically high 4.0-51.3 [facility] Comment on above: Result Comment: CUT- OFF POINTS HAVE BEEN ESTABLISHED BASED ON THE FOURTH UNIVERSAL DEFINITIONS OF MYOCARDIAL INFARCTION. THE UPPER REFERENCE LIMIT (URL) OF TROPONIN, DEFINED THE 99TH PERCENTILE OF cTnI DISTRIBUTION IN A REFERENCE POPULATION, HAS BEEN CONFIRMED THE DECISION THRESHOLD FOR [place] DIAGNOSIS. Performed By: #### H STROPN #### [facility] [address] [place] [address] Dr. Terrance Hernandez HSTROP 102.0 pg/mL Critically high 4.0-51.3 [facility] Comment on above: Result Comment: CUT- OFF POINTS HAVE BEEN ESTABLISHED BASED ON THE FOURTH UNIVERSAL DEFINITIONS OF MYOCARDIAL INFARCTION. THE UPPER REFERENCE LIMIT (URL) OF TROPONIN, DEFINED THE 99TH PERCENTILE OF cTnI DISTRIBUTION IN A REFERENCE POPULATION, HAS BEEN CONFIRMED THE DECISION THRESHOLD FOR [place] DIAGNOSIS. Performed By: #### B GUARD CHIEF, CMP, HSTROPN #### [facility] [address] [address] [address] Terrance Hernandez TSHon 06-18-2022 TSH 1.399 uIU/mL Normal 0.358-3.740 [facility] Comment on above: Performed By: #### T #### [facility] [address] [address] [address] Terrance Hernandez XR CHEST 2 Von [...] by: GLO MCCOY Date: 2022-06-18 10:59 Normal [facility] Physician Referralon 021 Physician Referral [phone] [id number] Normal [facility] Encounters Encounter Date Encounter Type Care Provider Facility Start: 01-21-2024 End: [facility]: 07-21-[facility]23 End: 07-21-2023 ambulatory [facility] Start: 05-04-2023 ambulatory [facility] Start: 03-23-2023 ambulatory [facility] Start: 03-19-2023 End[facility]: 07-13-[facility]22 End: 07-14-[address] JESUS STAPLETON . Facility:[facility] Start: 07-09-2022 End: 07-10-[address] JESUS STAPLETON . Facility:[facility] Start: 07-02-2022 End: 07-02-[address] JESUS STAPLETON . Facility:[facility] Start: 06-18-2022 End: 06-19-[address] JESUS STAPLETON . Facility:[facility] Payers Date Payer Category Payer Unknown [id number] 1975 Unknown [id number] 2.16.84 [id number] 1975 Unknown [id number] 2.16.84 [id number] 1975 Unknown [id number] 2.16.84 [id number] 1975 Unknown [id number] 2.16.84 [id number] 1959 Private Health Insurance [id number] Clinical Notes 03-19-2023 to 01-21-2024 Note Date [...] has resolved. No chest Israel Garay MD [facility] 07-21-2023 Note Currently resolved [facility] 07-21-2023 Note Patient here for 4 [...] All other systems reviewed and are negative. [facility] 07-21-2023 Note UTP CARDIOLOGY PROGR ESS [...] CTA in light she works out by [employer] and would need to take an entire day off work to have CT in [place]. Review of Systems Cardiovascular: Positive for leg [...] chest pain Currently resolved RTC 6 month [facility] 07-20-2023 Note Hypertension is well controlled with addition of hydrochlorothiazide Continue toprol 100 mg daily and hydrochlorothiazide. Renal function had remained stable and normal [facility] 07-20-2023 Note F/U with Dr Leach- vascular gloria clint [facility] 05-04-2023 Note Subjective Patient ID: Brooke [...] past 36 hour(s)). No follow-ups on file. [facility] 04-07-2023 Note Staff reported pt's b/p [...] Herrera NP Division of Cardiology, [facility]- [phone] Pager- [phone] Email- [email or web address] 03-23-2023 Note Subjective Patient ID: Brooke Dior is a 47 y.o. female who presents for new patient consult from Kyle Herrera NP at [facility] for BLE edema. HPI Patient presenting [...] past 36 hour(s)). No follow-ups on file. 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 She has [id number] compression socks that most of time hurts [...] and allergic danny (more content not included)... [facility] 03-19-2023 Note Patient here for 6 [...] All other systems reviewed and are negative. [facility] Summary Purpose Family History No Family History Records FoundNo Family History Records FoundNo Family History Records Found Advance Directives No Advanced Directives Records FoundNo Advanced Directives Records FoundNo Advanced Directives Records Found Additional Source Comments INFORMATION SOURCE (unrecogn ized section and content) DATE CREATED AUTHOR 03/09/2021 R[facility] DATE CREATED AUTHOR AUTHOR'S ORGANIZ ATION 11/27/2022 Jose De Jesus Gray [facility] DATE CREATED AUTHOR AUTHOR'S ORGANIZ ATION 02/29/[address] [facility] FOR RECORDS PERTAINING TO PATIENTS WHO [...] BE BASED ON THE PRIMARY CLINICAL RECORDS. [employer] [facility]. provides no warranty or guarantee of the accuracy or completeness of information in this document.
[2024-06-27 17:22] LABS: Basophils Percent Auto 0.2 % (0.2-2.0); Eosinophils Percent Auto 0.2 % (0.9-7.0); Hematocrit 38.2 % (36.0-48.0); Hemoglobin 12.7 g/dL (12.0-16.0); Immature Granulocytes Abs Auto 0.02 10^3/uL (0.00-0.03); Immature Granulocytes Pct Auto 0.2 % (0.0-0.5); Lymphocytes Absolute Auto 1.1 10^3/uL (1.2-3.8); Lymphocytes Percent Auto 13.6 % (20.5-60.0); Mean Corpuscular HGB Conc 33.2 g/dL (29.9-35.2); Mean Corpuscular Volume 90.1 fL (81.0-99.0); Mean Platelet Volume 9.7 fL (9.5-13.5); Monocytes Absolute Auto 0.5 10^3/uL (0.3-0.8); Monocytes Percent Auto 6.1 % (1.7-12.0); Neutrophils Absolute Auto 6.6 10^3/uL (1.4-6.5); Neutrophils Percent Auto 79.7 % (43.0-75.0); Platelet Count 198 10^3/uL (150-450); Red Blood Count 4.24 10^6/uL (4.20-5.40); Red Cell Distribution Width 14.5 % (11.0-15.0); White Blood Count 8.3 10^3/uL (4.0-11.0)
[2024-06-27 17:55] LABS: Alanine Aminotransferase 83 U/L (14-59); Albumin Globulin Ratio 0.8; Albumin Level 3.1 g/dL (3.4-5.0); Alkaline Phosphatase 129 U/L (46-116); Aspartate Amino Transferase 58 U/L (15-37); BUN Creatinine Ratio 21.5; Bilirubin Total 2.9 mg/dL (0.2-1.0); Carbon Dioxide 31.9 mmol/L (21.0-32.0); Chloride 101 mmol/L (98-107); Estimated GFR (African America >60 (>=60 mL/min/1.73m^2); Estimated GFR (Non-African Ame 55 (>=60 mL/min/1.73m^2); Globulin 3.7 g/dL; Glucose 109 mg/dL (74-106); Sodium 141 mmol/L (136-145); Total Protein 6.8 g/dL (6.4-8.2)
[2024-06-27 18:08] LABS: Potassium 2.9 mmol/L (3.5-5.1)
== END 2024-06-27 16:33 | disposition home or self-care (01) ==
LOC: LAB 16:33
PROVIDERS: PCP Family Medicine; Visit Provider Family Medicine
DX: L03.90 Cellulitis, unspecified (principal)
CPT/HCPCS: 36415; 80053; 85025; 87040